=== PATIENT | female | born 1940 | race Caucasian/White ===

== ENCOUNTER → 2020-09-17 11:02 | Outpatient (CLI) | payer OTHER, SELFPAY | PROVIDERS: PCP Internal Medicine; Referring Provider Dermatology MOHS-Micrographic Surgery; Visit Provider Family Medicine | DX: S81.801A Unspecified open wound, right lower leg, initial encounter (principal); I87.2 Venous insufficiency (chronic) (peripheral); R60.0 Localized edema; Z79.01 Long term (current) use of anticoagulants | CPT/HCPCS: 11042; 87070; 87075; 87205; 99204; 99213 ==

== ENCOUNTER → 2020-09-24 11:39 | Outpatient (CLI) | payer OTHER, SELFPAY | PROVIDERS: PCP Internal Medicine; Referring Provider Internal Medicine; Visit Provider Family Medicine | DX: S81.801A Unspecified open wound, right lower leg, initial encounter (principal); R60.0 Localized edema | CPT/HCPCS: 97597 ==

== ENCOUNTER → 2020-10-01 10:18 | Outpatient (CLI) | payer OTHER, SELFPAY | PROVIDERS: PCP Internal Medicine; Referring Provider Internal Medicine; Visit Provider Family Medicine | DX: S81.801A Unspecified open wound, right lower leg, initial encounter (principal); R60.0 Localized edema; Z79.01 Long term (current) use of anticoagulants | CPT/HCPCS: 99212; 99213 ==

== ENCOUNTER → 2020-10-08 13:31 | Outpatient (CLI) | payer OTHER, SELFPAY | PROVIDERS: PCP Internal Medicine; Referring Provider Internal Medicine; Visit Provider Family Medicine | DX: S81.801A Unspecified open wound, right lower leg, initial encounter (principal); I87.2 Venous insufficiency (chronic) (peripheral); R60.0 Localized edema; Z79.01 Long term (current) use of anticoagulants | CPT/HCPCS: 11042 ==

== ENCOUNTER → 2020-10-15 12:48 | Outpatient (CLI) | payer OTHER, SELFPAY ==
--- NOTE | 2020-10-15 12:52 | DI.US.S_ITS ---
PROCEDURE: US PELVIC COMPLETE INDICATIONS: RIGHT PELVIC PAIN TECHNIQUE: Real-time scanning was performed of the pelvic organs, with image documentation. Additional endovaginal scanning was necessary due to incomplete visualization of the adnexal and endometrial structures by transabdominal scanning. COMPARISON: None. FINDINGS: Uterus: Prior hysterectomy. Ovaries: Ovaries not visualized. No adnexal masses seen. Other: No pathologic free abdominal or pelvic fluid. IMPRESSION: No source for pelvic pain identified. If pain persists with conservative management, consider CT. Dictated by: Jeffrey Tyson [facility] Interpreted: Jere Lan MD on 10/15/2020 at 15:32 Approved by: Jere Lan M.D. on 10/15/2020 at 16:25
== END ==
PROVIDERS: PCP Internal Medicine; Visit Provider Orthopaedic Surgery
DX: R10.31 Right lower quadrant pain (principal)
CPT/HCPCS: 76830; 76856

== ENCOUNTER → 2020-10-23 09:23 | Outpatient (CLI) | payer OTHER, SELFPAY | PROVIDERS: PCP Internal Medicine; Referring Provider Internal Medicine; Visit Provider Family Medicine | DX: I87.2 Venous insufficiency (chronic) (peripheral) (principal); S81.801A Unspecified open wound, right lower leg, initial encounter; R60.0 Localized edema; Z79.01 Long term (current) use of anticoagulants | CPT/HCPCS: 97597 ==

== ENCOUNTER → 2020-10-29 09:50 | Outpatient (CLI) | payer OTHER, SELFPAY | PROVIDERS: PCP Internal Medicine; Referring Provider Internal Medicine; Visit Provider Family Medicine | DX: S81.801A Unspecified open wound, right lower leg, initial encounter (principal); Z79.01 Long term (current) use of anticoagulants; R60.0 Localized edema | CPT/HCPCS: 99213 ==

== ENCOUNTER → 2020-11-05 16:14 | Outpatient (CLI) | payer OTHER, SELFPAY | PROVIDERS: PCP Internal Medicine; Referring Provider Internal Medicine; Visit Provider Family Medicine | DX: S81.801A Unspecified open wound, right lower leg, initial encounter (principal); R60.0 Localized edema; M79.604 Pain in right leg; Z79.01 Long term (current) use of anticoagulants | CPT/HCPCS: 99212; 99213 ==

== ENCOUNTER → 2020-11-19 10:18 | Outpatient (CLI) | payer OTHER, SELFPAY | PROVIDERS: PCP Internal Medicine; Referring Provider Internal Medicine; Visit Provider Family Medicine | DX: I87.2 Venous insufficiency (chronic) (peripheral) (principal); S81.801D Unspecified open wound, right lower leg, subsequent encounter; R60.0 Localized edema; I16.0 Hypertensive urgency; Z79.01 Long term (current) use of anticoagulants | CPT/HCPCS: 99212; 99213 ==

== ENCOUNTER 2021-05-16 14:54 | Emergency (ER) | payer OTHER, SELFPAY ==
[2021-05-16 15:24] VITALS: BP 162/79; PULSE 88; RESP 18; TEMP 36.2; O2SAT 99; BMI 24.9
--- NOTE | 2021-05-16 17:39 | ED.WOUNDLAC ---
HPI - Wound/Laceration General Chief Complaint: Wound/Laceration Stated Complaint: Open sore on bottom/not able to sit Time Seen by Provider: 05/16/21 17:10 Source: patient Mode of arrival: Ambulatory Limitations: no limitations History of Present Illness HPI narrative: Patient is an 80-year-old female with history of atrial fibrillation on Eliquis, very remote genital herpes presenting today with a sore on rectal area. She has noticed a sore is 1 the right side her last 3 days. She said she had a blood test once which was positive for HSV she has never been put on antiviral medications. She has had it she would occasionally get a vaginal sore which she took some [id number] medicine for on it would go away. She is also complaining of significant left buttock pain, somewhat so that she cannot sit on it. However this sore is on the right side. She denies any fever or chills. She has not had any significant diarrhea. No abdominal pain or chest pain. Related Data Home Medications Medication Instructions Recorded Confirmed calcium citrate 200 mg (950 mg) PO #0 06/18/17 tablet (Calcitrate) estradiol 1 mg tablet (Estrace) #0 06/18/17 levothyroxine 75 mcg tablet 75 mcg PO #0 06/18/17 (Synthroid) losartan 50 mg tablet 50 mg PO BID #0 06/18/17 omeprazole 20 mg capsule,delayed 20 mg PO EVERY OTHER DAY #0 06/18/17 release pravastatin 40 mg tablet 40 mg PO QPM #0 06/18/17 triamterene 50 25 mg PO QDAY #0 06/18/17 mg-hydrochlorothiazide 25 mg capsule warfarin 5 mg tablet (Coumadin) 5 mg PO QPM #0 06/18/17 Previous Rx's Medication Instructions Recorded ondansetron 4 mg disintegrating 4 mg SUBLINGUAL Q6HP PRN #30 odt 06/22/17 tablet (Zofran ODT) oxycodone-acetaminophen 5 mg-325 0 tab PO Q6HP PRN #30 06/22/17 mg tablet polyethylene glycol 3350 17 gram 17 gm PO BID #20 dose 06/22/17 oral powder packet hydrocodone 5 mg-acetaminophen 325 1 tab PO Q6H PRN #10 tab 05/16/21 mg tablet valacyclovir 1 gram tablet 1,000 mg PO Q12H #20 tab 05/16/21 Allergies Allergy/AdvReac Type Severity Reaction Status Date / Time codeine [CODEINE] Allergy Intermediate NAUSEA Verified 05/16/21 15:23 Sulfa (Sulfonamide Allergy Intermediate broke out Verified 05/16/21 15:23 Antibiotics) in a rash [SULFA (SULFONAMIDE ANTIBIOTICS)] Review of Systems Review of Systems Narrative: GENERAL: Denies chills,fever HEENT: Denies throat pain RESPIRATORY: Denies dyspnea, cough, wheezing CARDIOVASCULAR: Denies chest pain, palpitations GASTROINTESTINAL: Denies nausea, vomiting MUSCULOSKELETAL: Denies extremity pain, injury SKIN: See HPI NEUROLOGIC: Denies weakness, dizziness, headache, numbness 8 point review of systems is negative except for those stated above and HPI Patient History Social History Smoking Status: Never smoker Smoking Status: Never smoker Substance Use Type: does not use Exam Initial Vital Signs Initial Vital Signs: Vital Signs Temperature 97.1 F L 05/16/21 15:24 Pulse Rate 88 05/16/21 15:24 Respiratory Rate 18 05/16/21 15:24 Blood Pressure 162/79 H 05/16/21 15:24 Pulse Oximetry 99 05/16/21 15:24 GENERAL: 80-year-old female appears younger than stated age CARDIOVASCULAR: peripheral pulses in tact, cap refill <2 sec RESPIRATORY: No respiratory distress, speaks in full sentences without difficulty EXTREMITIES: Normal range of motion, no clubbing or edema. Neurovascularly intact NEUROLOGICAL: Cranial nerves II through XII grossly intact. Normal gait and speech. SKIN: Rectal region around 7 to 8 o'clock position has some vesicular like lesions. No fluctuation no induration. Left buttock itself is quite tender to touch but there is no erythema no contusion no other sign of infection or injury. Course Orders Ordered: ED Orders 05/16/21 17:35 HSV 1/2 DNA PCR SWAB or BLOOD Stat Discontinued Medications Hydrocodone Bitart/Acetaminophen (Hydrocodone/Acet 5/325 Prepack) 1 bottle MISC SEEINSTR ONE Stop: 05/16/21 17:38 Last Admin: 05/16/21 18:05 Dose: 1 bottle Documented by: COLLINS Valacyclovir HCl (Valacyclovir 500 Mg Tablet) 1,000 mg PO NOW ONE Stop: 05/16/21 17:38 Last Admin: 05/16/21 18:05 Dose: 1,000 mg Documented by: COLLINS Vital Signs Vital signs: Vital Signs - 8 hr 05/16/21 15:24 Temperature 97.1 F L Pulse Rate 88 Respiratory Rate 18 Blood Pressure 162/79 H Pulse Oximetry 99 MDM - Wound/Laceration MDM Narrative Medical decision making narrative: Herpes culture is taken. Small vesicular ulcer like area near rectal region. Certainly no abscess she is afebrile. She denies any injury unclear exactly why the left buttock itself is so tender. The lesion itself is that right side on 01/15 position. Probable herpes. She is given 1 dose of acyclovir in the ED and written for a prescription. Educated on symptoms and when to return to ED. At this time I do not think any further testing or imaging is indicated. Discharge Plan Departure Patient Disposition: Home Clinical Impression: Herpes dermatitis Instructions: Genital Herpes, Herpes Simplex Virus Testing Activity Restrictions/Additional Instructions: *You have been diagnosed with probable herpes *What to do: At this time herpes culture is pending however based on her history I will start you on medication. You should start to feel better in the next 3-7 days. *Continue to take medications as directed Valacyclovir 1000 mg every 12 hours for 10 days Hydrocodone 1 tablet every 6 hours if needed for severe pain--please see below instructions *Follow up with your primary care provider in 2-3 days *Return to ER if you should have increasing pain, fever, swelling or any new, worsening or concerning symptoms CONTROLLED SUBSTANCE DISCHARGE (Narcotoic/benzodiazepine/Flexeril/Phenergan) 1. You have been prescribed narcotic medications, it does have acetaminophen/Tylenol/paracetamol in it, DO NOT TAKE MORE THAN 4,00mg in 24 hours of Tylenol. TRAMADOL DOES NOT CONTAIN TYLENOL 2. Please understand that we cannot provide further refills of narcotics, benzodiazepines or controlled substances through the ED and her pain management will need to be through your provider. 3. While on these medications you cannot drive or operate heavy machinery. 4. You cannot sign legal documents or perform any duties such as this. 5. As long as you're taking opiate pain medications he should also be taking a stool softener such as Colace, Dulcolax, MiraLAX or prune juice, to help avoid constipation. Prescriptions: New valacyclovir 1 gram tablet 1,000 mg PO Q12H Qty: 20 RF: 0 hydrocodone-acetaminophen 5-325 mg tablet 1 tab PO Q6H PRN (Reason: pain) Qty: 10 RF: 0 No Action warfarin [Coumadin] 5 MG tablet 5 mg PO QPM Qty: 0 RF: 0 losartan 50 MG tablet 50 mg PO BID Qty: 0 RF: 0 levothyroxine [Synthroid] 75 MCG tablet 75 mcg PO Qty: 0 RF: 0 pravastatin 40 MG tablet 40 mg PO QPM Qty: 0 RF: 0 triamterene-hydrochlorothiazid 50 MG/25 MG capsule 25 mg PO QDAY Qty: 0 RF: 0 omeprazole 20 MG capsule,delayed release(DR/EC) 20 mg PO EVERY OTHER DAY Qty: 0 RF: 0 calcium citrate [Calcitrate] 200 mg (950 mg) tablet PO Qty: 0 RF: 0 estradiol [Estrace] 1 mg tablet Qty: 0 RF: 0 polyethylene glycol 3350 17 GM powder in packet 17 gm PO BID Qty: 20 RF: 0 oxycodone-acetaminophen 5 MG/325 MG tablet 0 tab PO Q6HP PRNQty: 30 RF: 0 ondansetron [Zofran ODT] 4 MG tablet,disintegrating 4 mg Sublingual Q6HP PRNQty: 30 RF: 0 Referrals: Robert Mcfarlane MD [Primary Care Provider] -
[2021-05-16] MEDS: valACYclovir 500 MG TABLET 1000 MG PO (18:05)
[2021-05-16] MEDS: HYDROCODONE/ACET 5/325 PREPACK 1 BOTTLE MISC (18:05)
[2021-05-20 04:04] LABS: HSV 1 DNA Negative (Negative); HSV 2 DNA Positive (Negative)
== END 2021-05-16 18:13 | disposition home or self-care (01) ==
PROVIDERS: Emergency Provider Emergency Medicine; PCP Orthopaedic Surgery
DX: B00.89 Other herpesviral infection (principal)
CPT/HCPCS: 87529; 99283

== ENCOUNTER → 2021-07-16 16:38 | Outpatient (CLI) | payer OTHER, SELFPAY ==
--- NOTE | 2021-07-16 17:36 | DI.RAD.S_ITS ---
PROCEDURE: XR CHEST 2V INDICATIONS: shortness of breath TECHNIQUE: 2 views of the chest were acquired. COMPARISON: None. FINDINGS: Surgical changes and devices: Surgical clips project over the right breast. Lungs and pleura: Diffuse interstitial prominence. Mild loss of vascular distinctness. Small bilateral pleural effusions. No focal consolidations. Streaky bibasilar opacities. Mediastinum: Mild cardiomegaly. Atherosclerotic calcifications of the aortic arch. Bones and chest wall: No suspicious bony abnormalities. Soft tissues appear unremarkable. IMPRESSION: Cardiomegaly with findings compatible with pulmonary edema/CHF. Concurrent infectious or inflammatory process not excluded if clinically appropriate. Dictated by: Wallace Bergeron M.D. on 07/16/2021 at 18:00 Approved by: Wallace Bergeron M.D. on 07/16/2021 at 18:01
[2021-07-16 18:38] LABS: Influenza A - CEPHEID Flu A NEGATIVE (NEGATIVE); Influenza B - CEPHEID Flu B NEGATIVE (NEGATIVE)
--- NOTE | 2021-07-16 18:39 | PC.NURSE ---
pt is the spouse of my pt. she gave me permissions to check her lab results.
[2021-07-16 18:57] LABS: COVID19 -Nasal RAPID POSITIVE (Negative)
== END ==
PROVIDERS: PCP Orthopaedic Surgery; Referring Provider Nurse Practitioner Family; Visit Provider Nurse Practitioner Family
DX: U07.1 COVID-19 (principal); J06.9 Acute upper respiratory infection, unspecified; B34.9 Viral infection, unspecified
CPT/HCPCS: 71046; 87502; 87635

== ENCOUNTER 2021-07-16 19:07 | Emergency (ER) | payer OTHER, SELFPAY ==
[2021-07-16 19:30] VITALS: BP 200/99; PULSE 84; RESP 18; TEMP 36.6; O2SAT 97; BMI 26.6
[2021-07-16 19:54] LABS: Add Manual Diff / Slide Review NO; Basophils Absolute Auto 100 /uL (0-100); Basophils Percent Auto 0.9 % (0-2); Eosinophils Absolute Auto 0 /uL (0-450); Eosinophils Percent Auto 0.5 % (2-4); Hematocrit 39.3 % (36-46); Hemoglobin 13.6 g/dL (12.0-16.0); Lymphocytes Absolute Auto 1600 /uL (1100-4500); Lymphocytes Percent Auto 20.2 % (25-40); Mean Corpuscular HGB Conc 34.5 % (30-36); Mean Corpuscular Hemoglobin 30.9 PG (26-34); Mean Corpuscular Volume 89.4 fL (80-100); Monocytes Absolute Auto 1000 /uL (0-900); Monocytes Percent Auto 12.9 % (3-14); Neutrophils Absolute Auto 5100 /uL (1500-7000); Neutrophils Percent Auto 65.5 % (50-75); Platelet Count 277 X10^3/uL (150-400); Red Blood Cell Count 4.39 X10^6/uL (4.0-5.2); Red Cell Distribution Width 14.1 % (11.6-14.8); White Blood Cell Count 7.7 X10^3/uL (4.5-11.0)
[2021-07-16 20:09] LABS: INR 1.5 (0.9-1.3)
[2021-07-16 20:14] LABS: Lactate (Lactic Acid) 1.3 mmol/L (0.7-2.1)
[2021-07-16 20:16] LABS: Alanine Aminotransferase 22 IU/L (<35); Albumin 4.3 g/dL (3.5-5.0); Albumin Globulin Ratio 1.3 (1.0-2.8); Alkaline Phosphatase 54 U/L (38-126); Aspartate Aminotransferase 30 IU/L (14-36); BUN Creatinine Ratio 17.7 (6-22); Bilirubin Total 0.5 mg/dL (0.2-1.3); Blood Urea Nitrogen 14 mg/dL (7-17); Carbon Dioxide 27 mmol/L (22-32); Chloride 103 mmol/L (98-107); Estimated Glomerular Filt Rate > 60.0 mL/min (>60); Globulin 3.2 g/dL (1.7-4.1); Glucose 97 mg/dL (80-110); HEMOLYSIS < 15 (0-50); Potassium 3.5 mmol/L (3.4-5.1); Sodium 136 mmol/L (137-145); Total Protein 7.5 g/dL (6.3-8.2)
[2021-07-16 20:24] LABS: NT-proBNP (BNP-Adult 18+) 3200 pg/mL (<450)
[2021-07-16 21:17] LABS: Creatine Kinase 135 U/L (30-135)
[2021-07-16 21:30] LABS: Troponin I 0.028 ng/mL (0.01-0.034)
[2021-07-16 21:32] LABS: CKMB % Relative Index 1.3 % (1.5-5.0); Creatine Kinase MB 1.73 ng/mL (<2.37)
--- NOTE | 2021-07-16 22:16 | ED.SOB ---
HPI - SOB/Dyspnea General Chief Complaint: Upper Respiratory Symptoms Stated Complaint: CHF,SOB,COVID+ Time Seen by Provider: 07/16/21 22:10 Source: patient Mode of arrival: Ambulatory Limitations: no limitations History of Present Illness HPI Narrative: Female history of atrial fibrillation on Eliquis presents a walk-in clinic. She was notified by her children last evening that they have COVID a recently spent time with them. She went to the walk-in clinic for a COVID test is they did a chest x-ray which showed congestive heart failure she was sent to the ED for further evaluation. She has been having increasing shortness of breath over the last couple of weeks. She has noticed it more exertion. Minimal shortness of breath at night. She has no prior history of congestive heart failure, although she is on a ?water pill for her legs. She denies any chest pain or palpitations. She has mild sore throat no significant body aches or productive cough. Related Data Home Medications Medication Instructions Recorded Confirmed calcium citrate 200 mg (950 mg) PO #0 06/18/17 tablet (Calcitrate) estradiol 1 mg tablet (Estrace) #0 06/18/17 levothyroxine 75 mcg tablet 75 mcg PO #0 06/18/17 (Synthroid) losartan 50 mg tablet 50 mg PO BID #0 06/18/17 omeprazole 20 mg capsule,delayed 20 mg PO EVERY OTHER DAY #0 06/18/17 release pravastatin 40 mg tablet 40 mg PO QPM #0 06/18/17 triamterene 50 25 mg PO QDAY #0 06/18/17 mg-hydrochlorothiazide 25 mg capsule warfarin 5 mg tablet (Coumadin) 5 mg PO QPM #0 06/18/17 Previous Rx's Medication Instructions Recorded ondansetron 4 mg disintegrating 4 mg SUBLINGUAL Q6HP PRN #30 odt 06/22/17 tablet (Zofran ODT) oxycodone-acetaminophen 5 mg-325 0 tab PO Q6HP PRN #30 06/22/17 mg tablet polyethylene glycol 3350 17 gram 17 gm PO BID #20 dose 06/22/17 oral powder packet hydrocodone 5 mg-acetaminophen 325 1 tab PO Q6H PRN #10 tab 05/16/21 mg tablet valacyclovir 1 gram tablet 1,000 mg PO Q12H #20 tab 05/16/21 furosemide 20 mg tablet (Lasix) 20 mg PO DAILY #3 tab 07/16/21 Allergies Allergy/AdvReac Type Severity Reaction Status Date / Time codeine [CODEINE] Allergy Intermediate NAUSEA Verified 05/16/21 15:23 Sulfa (Sulfonamide Allergy Intermediate broke out Verified 05/16/21 15:23 Antibiotics) in a rash [SULFA (SULFONAMIDE ANTIBIOTICS)] Review of Systems Review of Systems Narrative: GENERAL: Denies chills, fatigue, malaise, fever, sweats, travel HEENT: Denies sinus pain, ear pain, sore throat, difficulty swallowing, neck pain RESPIRATORY: See HPI CARDIOVASCULAR: Denies chest pain, palpitations, orthopnea, edema GASTROINTESTINAL: Denies nausea, vomiting, abdominal pain, diarrhea, constipation, melena. : Denies dysuria, frequency, incontinence, hematuria, urinary retention, flank pain. MUSCULOSKELETAL: Denies weakness, joint pain, or bony pain SKIN: No rash, no erythema, no pruritus NEUROLOGIC: Denies weakness, dizziness, headache, numbness, change in speech, confusion PSYCHIATRIC: No concerning psychosocial issues. 12 point review of systems is negative except for those stated above and HPI Patient History Social History Smoking Status: Never smoker Smoking Status: Never smoker Substance Use Type: does not use Exam Initial Vital Signs Initial Vital Signs: Vital Signs Temperature 97.9 F 07/16/21 19:30 Pulse Rate 84 07/16/21 19:30 Respiratory Rate 18 07/16/21 19:30 Blood Pressure 200/99 H 07/16/21 19:30 Pulse Oximetry 97 07/16/21 19:30 GENERAL: Overall well-appearing 80-year-old female HEENT: Head atraumatic,EOMI, pupils reactive, face symmetric, moist mucous membranes CARDIOVASCULAR: Regular rate and rhythm without murmurs, rubs or gallops. RESPIRATORY: Mild crackles at bases no conversational dyspnea ABDOMEN: Soft, nontender. Normoactive bowel sounds all 4 quadrants. No guarding or rebound. EXTREMITIES: Normal range of motion, no clubbing or edema. Neurovascularly intact NEUROLOGICAL: Alert and oriented x4.Normal gait and speech. SKIN: Warm, dry, no laceration, no petechiae, no rashes or lesions. Course Orders Ordered: ED Orders 07/16/21 19:32 EKG-12 Lead Stat Measure peak expiratory flow ONCE RT Consult Eval and Treat Now 07/16/21 19:40 Complete Blood Count AUTO DIFF Stat Comprehensive Metabolic Panel Stat Lactate (Lactic Acid) Stat NT-proBNP (BNP-Adult 18+) Stat Prothrombin Time INR Stat Troponin & CK Cardiac Panel Stat Vital Signs Vital signs: Vital Signs - 8 hr 07/16/21 19:30 Temperature 97.9 F Pulse Rate 84 Respiratory Rate 18 Blood Pressure 200/99 H Pulse Oximetry 97 MDM - SOB/Dyspnea Lab Data Result diagrams: 07/16/21 19:40 07/16/21 19:40 Labs: Lab Results 07/16/21 07/16/21 07/16/21 Range/Units 19:40 19:40 19:40 WBC 7.7 (4.5-11.0) X10^3/uL RBC 4.39 (4.0-5.2) X10^6/uL Hgb 13.6 (12.0-16.0) g/dL Hct 39.3 (36-46) % MCV 89.4 (80-100) fL MCH 30.9 (26-34) PG MCHC 34.5 (30-36) % RDW 14.1 (11.6-14.8) % Plt Count 277 (150-400) X10^3/uL Neut % (Auto) 65.5 (50-75) % Lymph % (Auto) 20.2 L (25-40) % Woods % (Auto) 12.9 (3-14) % Eos % (Auto) 0.5 L (2-4) % Baso % (Auto) 0.9 (0-2) % Neut # (Auto) 5100 (2165-8821) /uL Lymph # (Auto) 1600 (8114-0119) /uL Woods # (Auto) 1000 H (0-900) /uL Eos # (Auto) 0 (0-450) /uL Baso # (Auto) 100 (0-100) /uL PT 17.0 H (10.1-12.7) SECONDS INR 1.5 H (0.9-1.3) Sodium 136 L (137-145) mmol/L Potassium 3.5 (3.4-5.1) mmol/L Chloride 103 (98-107) mmol/L Carbon Dioxide 27 (22-32) mmol/L BUN 14 (7-17) mg/dL Creatinine 0.79 (0.52-1.04) mg/dL Estimated GFR > 60.0 (>60) mL/min BUN/Creatinine Ratio 17.7 (6-22) Glucose 97 (80-110) mg/dL Lactate (0.7-2.1) mmol/L Calcium 9.0 (8.4-10.2) mg/dL Total Bilirubin 0.5 (0.2-1.3) mg/dL AST 30 (14-36) IU/L ALT 22 (<35) IU/L Alkaline Phosphatase 54 (38-126) U/L Total Creatine Kinase (30-135) U/L CK-MB (CK-2) (<2.37) ng/mL CK-MB (CK-2) Rel Index (1.5-5.0) % Troponin I (0.01-0.034) ng/mL NT-Pro-B Natriuret Pep 3200 H (<450) pg/mL Total Protein 7.5 (6.3-8.2) g/dL Albumin 4.3 (3.5-5.0) g/dL Globulin 3.2 (1.7-4.1) g/dL Albumin/Globulin Ratio 1.3 (1.0-2.8) 07/16/21 07/16/21 Range/Units 19:40 19:40 WBC (4.5-11.0) X10^3/uL RBC (4.0-5.2) X10^6/uL Hgb (12.0-16.0) g/dL Hct (36-46) % MCV (80-100) fL MCH (26-34) PG MCHC (30-36) % RDW (11.6-14.8) % Plt Count (150-400) X10^3/uL Neut % (Auto) (50-75) % Lymph % (Auto) (25-40) % Woods % (Auto) (3-14) % Eos % (Auto) (2-4) % Baso % (Auto) (0-2) % Neut # (Auto) (6867-8011) /uL Lymph # (Auto) (1616-7234) /uL Woods # (Auto) (0-900) /uL Eos # (Auto) (0-450) /uL Baso # (Auto) (0-100) /uL PT (10.1-12.7) SECONDS INR (0.9-1.3) Sodium (137-145) mmol/L Potassium (3.4-5.1) mmol/L Chloride (98-107) mmol/L Carbon Dioxide (22-32) mmol/L BUN (7-17) mg/dL Creatinine (0.52-1.04) mg/dL Estimated GFR (>60) mL/min BUN/Creatinine Ratio (6-22) Glucose (80-110) mg/dL Lactate 1.3 (0.7-2.1) mmol/L Calcium (8.4-10.2) mg/dL Total Bilirubin (0.2-1.3) mg/dL AST (14-36) IU/L ALT (<35) IU/L Alkaline Phosphatase (38-126) U/L Total Creatine Kinase 135 (30-135) U/L CK-MB (CK-2) 1.73 (<2.37) ng/mL CK-MB (CK-2) Rel Index 1.3 L (1.5-5.0) % Troponin I 0.028 (0.01-0.034) ng/mL NT-Pro-B Natriuret Pep (<450) pg/mL Total Protein (6.3-8.2) g/dL Albumin (3.5-5.0) g/dL Globulin (1.7-4.1) g/dL Albumin/Globulin Ratio (1.0-2.8) Imaging Data Chest x-ray: Radiologist's Impression: PROCEDURE:? XR CHEST 2V ? INDICATIONS:? shortness of breath ? TECHNIQUE:? 2 views of the chest were acquired.? ? COMPARISON:? None. ? FINDINGS:? ? Surgical changes and devices:? Surgical clips project over the right breast.? ? Lungs and pleura:? Diffuse interstitial prominence.? Mild loss of vascular distinctness.? Small bilateral pleural effusions.? No focal consolidations.? Streaky bibasilar opacities. ? Mediastinum:? Mild cardiomegaly.? Atherosclerotic calcifications of the aortic arch. ? Bones and chest wall:? No suspicious bony abnormalities.? Soft tissues appear unremarkable.? ? IMPRESSION:? Cardiomegaly with findings compatible with pulmonary edema/CHF.? Concurrent infectious or inflammatory process not excluded if clinically appropriate. ? ? Dictated by: Wallace Bergeron M.D. on 07/16/2021 at 18:00 ? ? ECG Data Interpretation: Atrial fibrillation rate 89 no ischemic change MDM Narrative Medical decision making narrative: Patient does not have known history of congestive heart failure although she is on diuretic medication. She has known atrial fibrillation is currently rate controlled. She has had increasing shortness of breath with exertion over the last 2 weeks. BNP is elevated at 3200 she does have cardiomegaly and pulmonary edema on her chest x-ray. She overall appears well she is in no respiratory distress she is not requiring oxygen even despite having COVID. At this time will at least 6 to her medications. She will need outpatient echocardiogram she has not yet had 1 of these. Recommend she return to the ED if her increasing shortness of breath worse Discharge Plan Departure Patient Disposition: Home Clinical Impression: COVID-19, Congestive heart failure Instructions: Heart Failure, DI for COVID-19 (Suspected or Confirmed ) Activity Restrictions/Additional Instructions: *You have been diagnosed with congestive heart failure and COVID *What to do: Please quarantine for the next 5-10 days. He will need an outpatient echocardiogram for your heart. *Continue to take medications as directed Lasix 20 mg once a day for 3 days (while taking this holdtriaterene, HCTZ) __> Sent to [facility] in [place] *Follow up with your primary care provider in 2-3 days or call [phone] *Return to ER if you should have increasing chest pain, shortness of breath, oxygen level less than 90% for 1 hour or any new, worsening or concerning symptoms * if you have not yet been vaccinated is still recommended and encouraged that you do so once your infection has passed *Follow up with your primary provider in 2-3 days or call [phone] AT HOME: -Monitor oxygen with pulse oximeter. If less than 90% for more than 1 hour please return to emergency department -I recommend lying on stomach for side rather than back, it has been proven to increase oxygen levels -Wash hands frequently. -Stay isolated at home please follow the isolation instructions below. -Increase fluid intake. -you may take Tylenol as directed if needed for pain or fever EMERGENCY warning signs for COVID-19: - Difficulty breathing or shortness of breath, oxygen less than 90% - Persistent pain or pressure in the chest - New confusion or inability to arouse - Bluish lips or face CDC Guidelines for home isolation: - Stay away from others - Limit contact with pets and animals: If you must care for a pet, wash your hands before and after interacting with them - Wear a mask while in public all places - Cover your mouth and nose with a tissue when you cough or sneeze. Dispose of tissues in a lined trash can and wash your hands immediately with soap and water for at least 20 seconds. If soap and water are not available, clean hands with alcohol-based hand asset protection detective that contains at least 60% alcohol. - Clean your hands often with soap and water for at least 20 seconds - Avoid touching your eyes, nose and mouth with unwashed hands - Do not share dishes, drinking glasses, cups, eating utensils, towels, or bedding with other people in your home. After using these items, wash them thoroughly with soap and water or put in the rib trim separator. - Clean high-touch surfaces in your isolation area (?sick room? and bathroom) every day; let a caregiver clean and disinfect high-touch surfaces in other areas of the home. Clean the area or item with soap and water or another detergent if it is dirty. Then, use a household disinfectant. Prescriptions: New furosemide [Lasix] 20 mg tablet 20 mg PO DAILY Qty: 3 0RF No Action warfarin [Coumadin] 5 MG tablet 5 mg PO QPM Qty: 0 0RF losartan 50 MG tablet 50 mg PO BID Qty: 0 0RF levothyroxine [Synthroid] 75 MCG tablet 75 mcg PO Qty: 0 0RF pravastatin 40 MG tablet 40 mg PO QPM Qty: 0 0RF triamterene-hydrochlorothiazid 50 MG/25 MG capsule 25 mg PO QDAY Qty: 0 0RF omeprazole 20 MG capsule,delayed release(DR/EC) 20 mg PO EVERY OTHER DAY Qty: 0 0RF calcium citrate [Calcitrate] 200 mg (950 mg) tablet PO Qty: 0 0RF estradiol [Estrace] 1 mg tablet Qty: 0 0RF polyethylene glycol 3350 17 GM powder in packet 17 gm PO BID Qty: 20 0RF oxycodone-acetaminophen 5 MG/325 MG tablet 0 tab PO Q6HP PRNQty: 30 0RF ondansetron [Zofran ODT] 4 MG tablet,disintegrating 4 mg Sublingual Q6HP PRNQty: 30 0RF valacyclovir 1 gram tablet 1,000 mg PO Q12H Qty: 20 0RF hydrocodone-acetaminophen 5-325 mg tablet 1 tab PO Q6H PRN (Reason: pain) Qty: 10 0RF Referrals: Robert Mcfarlane MD [Primary Care Provider] -
== END 2021-07-16 22:58 | disposition home or self-care (01) ==
PROVIDERS: Emergency Provider Emergency Medicine; PCP Orthopaedic Surgery
DX: U07.1 COVID-19 (principal); I50.9 Heart failure, unspecified; I48.91 Unspecified atrial fibrillation; Z79.01 Long term (current) use of anticoagulants; J06.9 Acute upper respiratory infection, unspecified; B34.9 Viral infection, unspecified
CPT/HCPCS: 36415; 71046; 80053; 82550; 82553; 83605; 83880; 84484; 85025; 85610; 87502; 87635; 93005; 93010; 99283

== ENCOUNTER → 2021-10-09 13:23 | Outpatient (CLI) | payer OTHER, SELFPAY | PROVIDERS: PCP Orthopaedic Surgery; Referring Provider Orthopaedic Surgery; Visit Provider Nurse Practitioner Family | DX: T81.89XA Other complications of procedures, not elsewhere classified, initial encounter (principal); S81.802A Unspecified open wound, left lower leg, initial encounter; R60.0 Localized edema; I11.0 Hypertensive heart disease with heart failure; I50.9 Heart failure, unspecified; Z79.01 Long term (current) use of anticoagulants; Z85.828 Personal history of other malignant neoplasm of skin | CPT/HCPCS: 11042; 93922; 99213 ==

== ENCOUNTER → 2021-10-16 13:20 | Outpatient (CLI) | payer OTHER, SELFPAY | PROVIDERS: PCP Orthopaedic Surgery; Referring Provider Family Medicine; Visit Provider Nurse Practitioner Family | DX: T81.89XA Other complications of procedures, not elsewhere classified, initial encounter (principal); S81.802A Unspecified open wound, left lower leg, initial encounter; R60.0 Localized edema; I11.0 Hypertensive heart disease with heart failure; I50.9 Heart failure, unspecified; I48.91 Unspecified atrial fibrillation; Z79.01 Long term (current) use of anticoagulants; Z85.828 Personal history of other malignant neoplasm of skin | CPT/HCPCS: 97597; 99213 ==

== ENCOUNTER → 2021-10-23 10:02 | Outpatient (CLI) | payer OTHER, SELFPAY | PROVIDERS: PCP Orthopaedic Surgery; Referring Provider Dermatology MOHS-Micrographic Surgery; Visit Provider Nurse Practitioner Family | DX: T81.89XA Other complications of procedures, not elsewhere classified, initial encounter (principal); S81.802A Unspecified open wound, left lower leg, initial encounter; R60.0 Localized edema | CPT/HCPCS: 99212 ==

== ENCOUNTER → 2021-11-06 13:17 | Outpatient (CLI) | payer OTHER, SELFPAY | PROVIDERS: PCP Orthopaedic Surgery; Referring Provider Dermatology MOHS-Micrographic Surgery; Visit Provider Nurse Practitioner Family | DX: T81.89XA Other complications of procedures, not elsewhere classified, initial encounter (principal); S81.802A Unspecified open wound, left lower leg, initial encounter; I11.0 Hypertensive heart disease with heart failure; I50.9 Heart failure, unspecified; I48.91 Unspecified atrial fibrillation; Z79.01 Long term (current) use of anticoagulants; Z85.828 Personal history of other malignant neoplasm of skin | CPT/HCPCS: 11042 ==

== ENCOUNTER → 2021-11-20 13:42 | Outpatient (CLI) | payer OTHER, SELFPAY | PROVIDERS: PCP Orthopaedic Surgery; Referring Provider Orthopaedic Surgery; Visit Provider Nurse Practitioner Family | DX: T81.89XA Other complications of procedures, not elsewhere classified, initial encounter (principal); S81.802A Unspecified open wound, left lower leg, initial encounter; R60.0 Localized edema; I11.0 Hypertensive heart disease with heart failure; I50.9 Heart failure, unspecified; I48.91 Unspecified atrial fibrillation; Z79.01 Long term (current) use of anticoagulants; Z85.828 Personal history of other malignant neoplasm of skin | CPT/HCPCS: 11042; 99212 ==

== ENCOUNTER → 2021-11-27 11:28 | Outpatient (CLI) | payer OTHER, SELFPAY | PROVIDERS: PCP Orthopaedic Surgery; Referring Provider Orthopaedic Surgery; Visit Provider Nurse Practitioner Family | DX: T81.89XA Other complications of procedures, not elsewhere classified, initial encounter (principal); S81.802A Unspecified open wound, left lower leg, initial encounter; I11.0 Hypertensive heart disease with heart failure; I50.9 Heart failure, unspecified; I48.91 Unspecified atrial fibrillation; Z79.01 Long term (current) use of anticoagulants; Z85.828 Personal history of other malignant neoplasm of skin | CPT/HCPCS: 97597 ==

== ENCOUNTER → 2021-12-04 14:08 | Outpatient (CLI) | payer OTHER, SELFPAY | PROVIDERS: PCP Orthopaedic Surgery; Referring Provider Family Medicine; Visit Provider Nurse Practitioner Family | DX: S81.802A Unspecified open wound, left lower leg, initial encounter (principal); L97.822 Non-pressure chronic ulcer of other part of left lower leg with fat layer exposed; Z79.01 Long term (current) use of anticoagulants; I10 Essential (primary) hypertension; I50.9 Heart failure, unspecified | CPT/HCPCS: 97597; 99212 ==

== ENCOUNTER → 2021-12-11 13:31 | Outpatient (CLI) | payer OTHER, SELFPAY | PROVIDERS: PCP Orthopaedic Surgery; Referring Provider Orthopaedic Surgery; Visit Provider Nurse Practitioner Family | DX: Z09 Encounter for follow-up examination after completed treatment for conditions other than malignant neoplasm (principal); I11.0 Hypertensive heart disease with heart failure; I50.9 Heart failure, unspecified; I48.91 Unspecified atrial fibrillation; Z79.01 Long term (current) use of anticoagulants; Z85.828 Personal history of other malignant neoplasm of skin; Z87.2 Personal history of diseases of the skin and subcutaneous tissue | CPT/HCPCS: 99213 ==

== ENCOUNTER 2022-04-15 04:12 | Emergency (ER) | payer OTHER, SELFPAY ==
[2022-04-15] VITALS (9 sets, daily range): BP systolic 157–191; BP diastolic 70–91; PULSE 68–79; RESP 12–28; TEMP 36.6; O2SAT 94–99; BMI 25.7
--- NOTE | 2022-04-15 04:17 | ED_ITS ---
HPI - Chest Pain General Chief Complaint: Chest Pain Stated Complaint: Chest pain Time Seen by Provider: 04/15/22 04:16 History of Present Illness HPI narrative: Patient is a 81-year-old female history of atrial fibrillation on Eliquis, congestive heart failure presenting today with left-sided chest. She says she was sleeping when she rolled over and felt left-sided pain underneath her breast. It lasts for about 1 hour it was nonradiating. She denies any shortness of breath. She says it just went away. She says they went out to dinner she thought she is having some a bad acid reflux she took Rolaids without any relief. She is chest pain-free now. No history of coronary artery disease or stents Related Data Home Medications Medication Instructions Recorded Confirmed calcium citrate 200 mg (950 mg) PO ##0 06/18/17 tablet (Calcitrate) estradiol 1 mg tablet (Estrace) ##0 06/18/17 levothyroxine 75 mcg tablet 75 mcg PO ##0 06/18/17 (Synthroid) losartan 50 mg tablet 50 mg PO BID ##0 06/18/17 omeprazole 20 mg capsule,delayed 20 mg PO EVERY OTHER DAY ##0 06/18/17 release pravastatin 40 mg tablet 40 mg PO QPM ##0 06/18/17 triamterene 50 25 mg PO QDAY ##0 06/18/17 mg-hydrochlorothiazide 25 mg capsule warfarin 5 mg tablet (Coumadin) 5 mg PO QPM ##0 06/18/17 Previous Rx's Medication Instructions Recorded ondansetron 4 mg disintegrating 4 mg sublingual Q6HP PRN ##30 06/22/17 tablet (Zofran ODT) oxycodone-acetaminophen 5 mg-325 0 tab PO Q6HP PRN ##30 06/22/17 mg tablet polyethylene glycol 3350 17 gram 17 gm PO BID #20 doses 06/22/17 oral powder packet hydrocodone 5 mg-acetaminophen 325 1 tab PO Q6H PRN pain #10 tabs 05/16/21 mg tablet valacyclovir 1 gram tablet 1,000 mg PO Q12H #20 tabs 05/16/21 furosemide 20 mg tablet (Lasix) 20 mg PO DAILY #3 tabs 07/16/21 Allergies Allergy/AdvReac Type Severity Reaction Status Date / Time codeine [CODEINE] Allergy Intermediate NAUSEA Verified 04/15/22 04:21 Sulfa (Sulfonamide Allergy Intermediate broke out Verified 04/15/22 04:21 Antibiotics) in a rash [SULFA (SULFONAMIDE ANTIBIOTICS)] Review of Systems Review of Systems Narrative: GENERAL: Denies chills, fatigue, malaise, fever, sweats, travel HEENT: Denies sinus pain, ear pain, sore throat, difficulty swallowing, neck pain RESPIRATORY: Denies dyspnea, cough, wheezing, hemoptysis, sputum. CARDIOVASCULAR: See HPI GASTROINTESTINAL: Denies nausea, vomiting, abdominal pain, diarrhea, constipation, melena. : Denies dysuria, frequency, incontinence, hematuria, urinary retention, flank pain. MUSCULOSKELETAL: Denies weakness, joint pain, or bony pain SKIN: No rash, no erythema, no pruritus NEUROLOGIC: Denies weakness, dizziness, headache, numbness, change in speech, confusion PSYCHIATRIC: No concerning psychosocial issues. 12 point review of systems is negative except for those stated above and HPI Patient History Social History Smoking Status: Never smoker Smoking Status: Never smoker Substance Use Type: does not use Exam Initial Vital Signs Initial Vital Signs: Vital Signs Pulse Rate 77 04/15/22 04:18 Pulse Oximetry 99 04/15/22 04:18 GENERAL: Alert pleasant 81-year-old female and in no acute distress. HEENT: Head atraumatic,EOMI, pupils reactive, face symmetric, moist mucous membranes CARDIOVASCULAR: Irregularly irregular no murmurs pain is not reproducible with touch RESPIRATORY: Breath sounds equal bilaterally, no wheezes rales or rhonchi. ABDOMEN: Soft, nontender. Normoactive bowel sounds all 4 quadrants. No guarding or rebound. EXTREMITIES: Normal range of motion, no clubbing or edema. Neurovascularly intact NEUROLOGICAL: Alert and oriented x4.Normal gait and speech. SKIN: Warm, dry, no laceration, no petechiae, no rashes or lesions. Scores HEART Score Heart Score history: Slightly Suspicious Heart Score EKG: Normal Heart Score Age: > or = 65 years old Heart Score risk factors: 1-2 risk factors Heart Score troponin: < or = to normal limit Heart Score Total: 3 Course Orders Ordered: ED Orders 04/15/22 04:23 XR chest 1V Stat Complete Blood Count AUTO DIFF Stat Comprehensive Metabolic Panel Stat Lipase Stat NT-proBNP (BNP-Adult 18+) Stat Troponin & CK Cardiac Panel Stat EKG-12 Lead Stat 04/15/22 06:25 Trop I [Troponin I] Stat Vital Signs Vital signs: Vital Signs - 8 hr 04/15/22 04:21 04/15/22 04:18 04/15/22 04:30 Temperature 97.8 F Pulse Rate 68 77 Respiratory Rate 18 Blood Pressure 191/91 H 169/72 H Pulse Oximetry 99 99 Oxygen Delivery Method Room Air 04/15/22 04:30 04/15/22 05:00 04/15/22 05:00 Temperature Pulse Rate 78 73 Respiratory Rate 28 H 19 Blood Pressure 184/79 H Pulse Oximetry 98 96 Oxygen Delivery Method 04/15/22 05:30 04/15/22 05:31 04/15/22 05:31 Temperature Pulse Rate 73 76 Respiratory Rate 12 24 Blood Pressure 180/76 H Pulse Oximetry 97 96 Oxygen Delivery Method 04/15/22 06:00 04/15/22 06:00 04/15/22 06:30 Temperature Pulse Rate 75 Respiratory Rate 19 Blood Pressure 191/81 H 166/81 H Pulse Oximetry 99 Oxygen Delivery Method 04/15/22 06:30 Temperature Pulse Rate 71 Respiratory Rate 21 Blood Pressure Pulse Oximetry 97 Oxygen Delivery Method MDM - Chest Pain Lab Data Result diagrams: 04/15/22 04:25 04/15/22 04:25 Labs: Lab Results 04/15/22 04/15/22 04/15/22 Range/Units 04:25 04:25 06:25 WBC 7.1 (4.5-11.0) X10^3/uL RBC 4.08 (4.0-5.2) X10^6/uL Hgb 12.8 (12.0-16.0) g/dL Hct 36.7 (36-46) % MCV 89.9 (80-100) fL MCH 31.4 (26-34) PG MCHC 35.0 (30-36) % RDW 13.8 (11.6-14.8) % Plt Count 219 (150-400) X10^3/uL Neut % (Auto) 56.0 (50-75) % Lymph % (Auto) 31.4 (25-40) % [place] % (Auto) 8.5 (3-14) % Eos % (Auto) 2.9 (2-4) % Baso % (Auto) 1.2 (0-2) % Neut # (Auto) 4000 (1648-4066) /uL Lymph # (Auto) 2200 (6899-0816) /uL [place] # (Auto) 600 (0-900) /uL Eos # (Auto) 200 (0-450) /uL Baso # (Auto) 100 (0-100) /uL Sodium 137 (137-145) mmol/L Potassium 3.9 (3.4-5.1) mmol/L Chloride 101 (98-107) mmol/L Carbon Dioxide 31 (22-32) mmol/L BUN 29 H (7-17) mg/dL Creatinine 0.99 (0.52-1.04) mg/dL Estimated GFR 57 L (>60) mL/min BUN/Creatinine Ratio 29.3 H (6-22) Glucose 130 H (80-110) mg/dL Calcium 9.9 (8.4-10.2) mg/dL Total Bilirubin 0.7 (0.2-1.3) mg/dL AST 30 (14-36) IU/L ALT 30 (<35) IU/L Alkaline Phosphatase 43 (38-126) U/L Total Creatine Kinase 101 (30-135) U/L CK-MB (CK-2) 1.83 (<2.37) ng/mL CK-MB (CK-2) Rel Index 1.8 (1.5-5.0) % Troponin I < 0.012 < 0.012 (0.01-0.034) ng/mL NT-Pro-B Natriuret Pep 1360 H (<450) pg/mL Total Protein 7.0 (6.3-8.2) g/dL Albumin 3.9 (3.5-5.0) g/dL Globulin 3.1 (1.7-4.1) g/dL Albumin/Globulin Ratio 1.3 (1.0-2.8) Lipase 170 (23-300) U/L Imaging Data Chest x-ray: Radiologist's Impression: Preliminary report no acute cardiopulmonary process ECG Data Interpretation: EKG 1. Atrial fibrillation rate [address] changes similar to previous EKG EKG 2. Atrial fibrillation rate 63 MDM Narrative Medical decision making narrative: Patient rolled over in bed and has some left-sided chest pain. Seemed is reproducible with movement. Although it did last for about 1 hour she thought was worsening acid reflux. 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 At this time no need for admission. She has a low h eart score. Discharge Plan Departure Patient Disposition: Home Clinical Impression: Atypical chest pain Instructions: DI for Atypical Chest Pain Activity Restrictions/Additional Instructions: *You have been diagnosed with atypical chest pain *What to do: At this time blood work is overall reassuring. However you still may require stress test please discuss this with your primary care provider or your runstitching machine operator *Continue to take medications as directed *Follow up with your primary care provider in 2-3 days or call [phone] *Return to ER if you should have increasing chest pain, shortness of breath, palpitation or any new, worsening or concerning symptoms Prescriptions: No Action warfarin [Coumadin] 5 MG tablet 5 mg PO QPM Qty: 0 losartan 50 MG tablet 50 mg PO BID Qty: 0 levothyroxine [Synthroid] 75 MCG tablet 75 mcg PO Qty: 0 pravastatin 40 MG tablet 40 mg PO QPM Qty: 0 triamterene-hydrochlorothiazid 50 MG/25 MG capsule 25 mg PO QDAY Qty: 0 omeprazole 20 MG capsule,delayed release(DR/EC) 20 mg PO EVERY OTHER DAY Qty: 0 calcium citrate [Calcitrate] 200 mg (950 mg) tablet PO Qty: 0 estradiol [Estrace] 1 mg tablet Qty: 0 polyethylene glycol 3350 17 GM powder in packet 17 gm PO BID Qty: 20 0RF oxycodone-acetaminophen 5 MG/325 MG tablet 0 tab PO Q6HP PRNQty: 30 0RF ondansetron [Zofran ODT] 4 MG tablet,disintegrating 4 mg Sublingual Q6HP PRNQty: 30 0RF furosemide [Lasix] 20 mg tablet 20 mg PO DAILY Qty: 3 0RF valacyclovir 1 gram tablet 1,000 mg PO Q12H Qty: 20 0RF hydrocodone-acetaminophen 5-325 mg tablet 1 tab PO Q6H PRN (Reason: pain) Qty: 10 0RF Referrals: Robert Mcfarlane MD [Primary Care Provider] -
--- NOTE | 2022-04-15 04:23 | DI.RAD.S_ITS ---
PROCEDURE: XR CHEST 1V INDICATIONS: chest pain TECHNIQUE: One view of the chest was acquired. COMPARISON: [facility], CR, XR CHEST 2V, 07/16/2021, 17:30. FINDINGS: Surgical changes and devices: Right breast clips. Lungs and pleura: Lungs are clear. No pleural effusions or pneumothorax. Mediastinum: Mediastinal contours appear normal. Heart size is normal. Bones and chest wall: No suspicious bony lesions. Overlying soft tissues appear unremarkable. IMPRESSION: No acute cardiopulmonary abnormality. This report is concordant with the overnight preliminary interpretation. Dictated by: Derek Le M.D. on 04/15/2022 at 7:56 Approved by: Derek Le M.D. on 04/15/2022 at 7:58
[2022-04-15 04:46] LABS: Add Manual Diff / Slide Review NO; Basophils Absolute Auto 100 /uL (0-100); Basophils Percent Auto 1.2 % (0-2); Eosinophils Absolute Auto 200 /uL (0-450); Eosinophils Percent Auto 2.9 % (2-4); Hematocrit 36.7 % (36-46); Hemoglobin 12.8 g/dL (12.0-16.0); Lymphocytes Absolute Auto 2200 /uL (1100-4500); Lymphocytes Percent Auto 31.4 % (25-40); Mean Corpuscular Hemoglobin 31.4 PG (26-34); Mean Corpuscular Volume 89.9 fL (80-100); Monocytes Absolute Auto 600 /uL (0-900); Monocytes Percent Auto 8.5 % (3-14); Neutrophils Absolute Auto 4000 /uL (1500-7000); Platelet Count 219 X10^3/uL (150-400); Red Blood Cell Count 4.08 X10^6/uL (4.0-5.2); Red Cell Distribution Width 13.8 % (11.6-14.8); White Blood Cell Count 7.1 X10^3/uL (4.5-11.0)
[2022-04-15 04:51] LABS: Alanine Aminotransferase 30 IU/L (<35); Albumin 3.9 g/dL (3.5-5.0); Albumin Globulin Ratio 1.3 (1.0-2.8); Alkaline Phosphatase 43 U/L (38-126); Aspartate Aminotransferase 30 IU/L (14-36); BUN Creatinine Ratio 29.3 (6-22); Bilirubin Total 0.7 mg/dL (0.2-1.3); Blood Urea Nitrogen 29 mg/dL (7-17); Calcium 9.9 mg/dL (8.4-10.2); Carbon Dioxide 31 mmol/L (22-32); Chloride 101 mmol/L (98-107); Creatine Kinase 101 U/L (30-135); Estimated Glomerular Filt Rate 57 mL/min (>60); Globulin 3.1 g/dL (1.7-4.1); Glucose 130 mg/dL (80-110); HEMOLYSIS < 15 (0-50); Lipase 170 U/L (23-300); Potassium 3.9 mmol/L (3.4-5.1); Sodium 137 mmol/L (137-145)
[2022-04-15 05:03] LABS: NT-proBNP (BNP-Adult 18+) 1360 pg/mL (<450); Troponin I < 0.012 ng/mL (0.01-0.034)
[2022-04-15 05:06] LABS: CKMB % Relative Index 1.8 % (1.5-5.0); Creatine Kinase MB 1.83 ng/mL (<2.37)
[2022-04-15 06:50] LABS: Troponin I < 0.012 ng/mL (0.01-0.034)
== END 2022-04-15 07:14 | disposition home or self-care (01) ==
PROVIDERS: Emergency Provider Emergency Medicine; PCP Orthopaedic Surgery
DX: R07.89 Other chest pain (principal); I50.9 Heart failure, unspecified; I48.91 Unspecified atrial fibrillation; Z79.01 Long term (current) use of anticoagulants
CPT/HCPCS: 36415; 71045; 80053; 82550; 82553; 83690; 83880; 84484; 85025; 93005; 99283; 99284

== ENCOUNTER → 2022-11-15 15:46 | Outpatient (CLI) | payer OTHER, SELFPAY ==
--- NOTE | 2022-11-15 | DI.RAD.S_ITS ---
PROCEDURE: XR LUMBAR SPINE 2-3V INDICATIONS: BACK PAIN TECHNIQUE: 3 views of the lumbar spine were acquired. COMPARISON: None. FINDINGS: Bones: 5 [id number] vertebrae are present. Slight rightward curvature of the lumbar spine. Moderate to severe disc height loss at all levels. Moderate facet arthrosis L5-S1. Soft tissues: Overlying bowel gas pattern is normal. No suspicious soft tissue calcifications. IMPRESSION: Moderate to severe, multilevel degenerative disc disease and lumbosacral facet arthrosis. Dictated by: Joel Roth M.D. on 11/15/2022 at 16:51 Approved by: Joel Roth M.D. on 11/15/2022 at 16:52
[2022-11-15 17:51] LABS: BUN Creatinine Ratio 19.3 (6-22); Blood Urea Nitrogen 21 mg/dL (7-17); Calcium 8.7 mg/dL (8.4-10.2); Carbon Dioxide 27 mmol/L (22-32); Chloride 99 mmol/L (98-107); Estimated Glomerular Filt Rate 51 mL/min (>60); Glucose 88 mg/dL (80-110); HEMOLYSIS 26 (0-50); Potassium 4.5 mmol/L (3.4-5.1); Sodium 134 mmol/L (137-145)
[2022-11-16 23:23] LABS: x Labcorp Estim. Avg Glu (eAG) 143 mg/dL (.); x Labcorp Hemoglobin A1c 6.6 % (4.8-5.6)
== END ==
PROVIDERS: PCP Family Medicine; Referring Provider Family Medicine; Visit Provider Family Medicine
DX: M54.9 Dorsalgia, unspecified (principal); M51.16 Intervertebral disc disorders with radiculopathy, lumbar region; M47.27 Other spondylosis with radiculopathy, lumbosacral region; E11.9 Type 2 diabetes mellitus without complications; I50.9 Heart failure, unspecified; I25.10 Atherosclerotic heart disease of native coronary artery without angina pectoris; Z79.899 Other long term (current) drug therapy
CPT/HCPCS: 36415; 72100; 80048; 83036

== ENCOUNTER → 2023-01-14 15:26 | Outpatient (CLI) | payer OTHER, SELFPAY ==
--- NOTE | 2023-01-14 | DI.RAD.S_ITS ---
PROCEDURE: XR WRIST LT MIN 3V INDICATIONS: pain lt wrist TECHNIQUE: 3 views of the wrist were acquired. COMPARISON: None. FINDINGS: Bones: No fractures or dislocations. No suspicious bony lesions. Degenerative joint space narrowing and subchondral sclerosis noted involving predominantly the triscaphoid joint Soft tissues: No suspicious soft tissue calcifications. IMPRESSION: Intercarpal osteoarthritis Approved by: Mahesh Ortez M.D. on 01/14/2023 at 18:07
== END ==
PROVIDERS: PCP Family Medicine; Referring Provider Family Medicine; Visit Provider Family Medicine
DX: M19.032 Primary osteoarthritis, left wrist (principal); M25.532 Pain in left wrist
CPT/HCPCS: 73110

== ENCOUNTER → 2023-08-30 18:31 | Outpatient (CLI) | payer OTHER, SELFPAY ==
--- NOTE | 2023-08-30 18:36 | DI.RAD.S_ITS ---
PROCEDURE: XR CERVICAL SPINE 2V OR 3V INDICATIONS: RADICULOPATHY CERVICAL SPINE TECHNIQUE: 3 view(s) of the cervical spine were acquired. COMPARISON: None. FINDINGS: Bones: Degenerative grade 1 anterior spondylolisthesis C4-5. Hypertrophic facet joints present throughout the exam. Degenerative disc space narrowing anterior osteophytes noted particularly at C4-5, C5-6 and C6-7 Soft tissues: No prevertebral soft tissue swelling. IMPRESSION: Degenerative disc disease and arthropathy associated with grade 1 anterior spondylolisthesis C4-5 Approved by: Mahesh Ortez M.D. on 08/31/2023 at 19:07
== END ==
LOC: RAD 18:33
PROVIDERS: PCP Family Medicine; Referring Provider Family Medicine; Visit Provider Family Medicine
DX: M47.22 Other spondylosis with radiculopathy, cervical region (principal); M50.121 Cervical disc disorder at C4-C5 level with radiculopathy; M43.12 Spondylolisthesis, cervical region
CPT/HCPCS: 72040

== ENCOUNTER 2023-12-06 11:57 | Emergency (ER) | payer OTHER, SELFPAY ==
[2023-12-06] VITALS (7 sets, daily range): BP systolic 124–164; BP diastolic 65–115; PULSE 73–93; RESP 20–25; TEMP 36.4; O2SAT 96–98; BMI 24.9
--- NOTE | 2023-12-06 12:05 | DI.RAD.S_ITS ---
PROCEDURE: XR CHEST 1V INDICATIONS: Shortness of breath TECHNIQUE: One view of the chest was acquired. COMPARISON: [facility], , XR CHEST 1V, 04/15/2022, 4:30. FINDINGS: Surgical changes and devices: Stable right breast surgical clips.. Lungs and pleura: Lungs are clear. No pleural effusions or pneumothorax. Mediastinum: Mediastinal contours appear normal. Heart is enlarged. Bones and chest wall: No suspicious bony lesions. Overlying soft tissues appear unremarkable. IMPRESSION: No acute cardiopulmonary abnormality is seen. Dictated by: Michelle Mullins MD, PhD on 12/06/2023 at 12:28 Approved by: Michelle Mullins MD, PhD on 12/06/2023 at 12:29
[2023-12-06 12:36] LABS: Add Manual Diff / Slide Review NO; Basophils Absolute Auto 100 /uL (0-100); Basophils Percent Auto 0.8 % (0-2); Eosinophils Absolute Auto 200 /uL (0-450); Hematocrit 35.4 % (36-46); Hemoglobin 12.2 g/dL (12.0-16.0); Lymphocytes Absolute Auto 1100 /uL (1100-4500); Lymphocytes Percent Auto 16.8 % (25-40); Mean Corpuscular HGB Conc 34.4 % (30-36); Mean Corpuscular Hemoglobin 30.4 PG (26-34); Mean Corpuscular Volume 88.5 fL (80-100); Monocytes Absolute Auto 600 /uL (0-900); Monocytes Percent Auto 8.8 % (3-14); Neutrophils Absolute Auto 4700 /uL (1500-7000); Neutrophils Percent Auto 70.6 % (50-75); Platelet Count 271 X10^3/uL (150-400); Red Cell Distribution Width 13.6 % (11.6-14.8); White Blood Cell Count 6.7 X10^3/uL (4.5-11.0)
--- NOTE | 2023-12-06 12:40 | ED_ITS ---
HPI - General Adult General Chief complaint: Shortness of Breath/Dyspnea Stated complaint: congestion, sob, coughing, chest is tight Time Seen by Provider: 12/06/23 12:05 Source: patient Mode of arrival: Ambulatory History of Present Illness HPI narrative: Patient is an 83-year-old female. Has a history of AFib. Is on Eliquis. Also takes a diuretic who is here for evaluation of several days of congestion, cough, productive cough, fevers a couple nights ago. She was having some tightness in her chest but she feels it is related to the cough. No lower extremity edema more than baseline for her. She has been doing her diuretics. Related Data Home Medications Medication Instructions Recorded Confirmed calcium citrate 200 mg (950 mg) PO ##0 06/18/17 tablet (Calcitrate) estradiol 1 mg tablet (Estrace) ##0 06/18/17 levothyroxine 75 mcg tablet 75 mcg PO ##0 06/18/17 (Synthroid) losartan 50 mg tablet 50 mg PO BID ##0 06/18/17 omeprazole 20 mg capsule,delayed 20 mg PO EVERY OTHER DAY ##0 06/18/17 release pravastatin 40 mg tablet 40 mg PO QPM ##0 06/18/17 triamterene 50 25 mg PO QDAY ##0 06/18/17 mg-hydrochlorothiazide 25 mg capsule warfarin 5 mg tablet (Coumadin) 5 mg PO QPM ##0 06/18/17 Previous Rx's Medication Instructions Recorded ondansetron 4 mg disintegrating 4 mg sublingual Q6HP PRN ##30 06/22/17 tablet (Zofran ODT) oxycodone-acetaminophen 5 mg-325 0 tab PO Q6HP PRN ##30 06/22/17 mg tablet polyethylene glycol 3350 17 gram 17 gm PO BID #20 doses 06/22/17 oral powder packet hydrocodone 5 mg-acetaminophen 325 1 tab PO Q6H PRN pain #10 tabs 05/16/21 mg tablet valacyclovir 1 gram tablet 1,000 mg PO Q12H #20 tabs 05/16/21 furosemide 20 mg tablet (Lasix) 20 mg PO DAILY #3 tabs 07/16/21 Allergies Allergy/AdvReac Type Severity Reaction Status Date / Time codeine [CODEINE] Allergy Intermediate NAUSEA Verified 12/06/23 12:04 Sulfa (Sulfonamide Allergy Intermediate broke out Verified 12/06/23 12:04 Antibiotics) in a rash [SULFA (SULFONAMIDE ANTIBIOTICS)] Review of Systems Review of Systems ROS Unobtainable: All systems reviewed & are unremarkable except as noted in HPI and below Patient History Social History Smoking Status: Never smoker Smoking Status: Never smoker alcohol intake frequency: a few times a week Substance Use Type: does not use Exam Initial Vital Signs Initial Vital Signs: Vital Signs Temperature 97.5 F L 12/06/23 12:00 Pulse Rate 93 H 12/06/23 12:00 Respiratory Rate 22 12/06/23 12:00 Blood Pressure 137/65 12/06/23 12:00 Pulse Oximetry 96 12/06/23 12:00 Oxygen Delivery Method Room Air 12/06/23 12:00 Const General: cooperative, well developed and No ill appearing HENMT Head: normal to inspection and normocephalic Resp Effort & Inspection: normal respiratory effort, cough, not labored and not tachypneic Auscultation: crackles and rhonchi Cardio Rate: regular rate Rhythm: abnormal rhythm Neuro General: patient alert, patient awake, patient oriented x3 and moves all extremities Extrem General: No edema Course Orders Ordered: ED Orders 12/06/23 12:05 XR chest 1V Stat EKG-12 Lead Stat Measure peak expiratory flow ONCE RT Consult Eval and Treat NOW 12/06/23 12:20 Complete Blood Count AUTO DIFF Stat Comprehensive Metabolic Panel Stat Lactate (Lactic Acid) Stat NT-proBNP (BNP-Adult 18+) Stat Prothrombin Time INR Stat Respiratory Panel (Film Array) Stat Troponin I Stat Vital Signs Vital signs: Vital Signs - 8 hr 12/06/23 12:00 12/06/23 12:08 12/06/23 12:08 Temperature 97.5 F L Pulse Rate 93 H 76 Respiratory Rate 22 Blood Pressure 137/65 141/71 H Pulse Oximetry 96 97 Oxygen Delivery Method Room Air 12/06/23 12:30 12/06/23 12:30 12/06/23 13:00 Temperature Pulse Rate 77 Respiratory Rate 21 Blood Pressure 126/67 124/78 Pulse Oximetry 98 Oxygen Delivery Method 12/06/23 13:00 12/06/23 13:30 12/06/23 13:30 Temperature Pulse Rate 73 73 Respiratory Rate 20 25 H Blood Pressure 137/83 Pulse Oximetry 96 98 Oxygen Delivery Method 12/06/23 13:48 12/06/23 13:48 12/06/23 14:00 Temperature Pulse Rate 79 76 Respiratory Rate 21 25 H Blood Pressure 164/115 H Pulse Oximetry 98 98 Oxygen Delivery Method 12/06/23 14:00 Temperature Pulse Rate Respiratory Rate Blood Pressure 147/74 H Pulse Oximetry Oxygen Delivery Method Medical Decision Making Lab Data Lab results reviewed: Yes I reviewed the patient's lab results. 12/06/23 12:20 12/06/23 12:20 Labs: Lab Results 12/06/23 Range/Units 12:20 WBC 6.7 (4.5-11.0) X10^3/uL RBC 4.00 (4.0-5.2) X10^6/uL Hgb 12.2 (12.0-16.0) g/dL Hct 35.4 L (36-46) % MCV 88.5 (80-100) fL MCH 30.4 (26-34) PG MCHC 34.4 (30-36) % RDW 13.6 (11.6-14.8) % Plt Count 271 (150-400) X10^3/uL Neut % (Auto) 70.6 (50-75) % Lymph % (Auto) 16.8 L (25-40) % [place] % (Auto) 8.8 (3-14) % Eos % (Auto) 3.0 (2-4) % Baso % (Auto) 0.8 (0-2) % Neut # (Auto) 4700 (4166-0364) /uL Lymph # (Auto) 1100 (0979-4199) /uL [place] # (Auto) 600 (0-900) /uL Eos # (Auto) 200 (0-450) /uL Baso # (Auto) 100 (0-100) /uL PT 18.0 H (9.4-12.5) SECONDS INR 1.6 H (0.9-1.3) Sodium 134 L (137-145) mmol/L Potassium 4.5 (3.4-5.1) mmol/L Chloride 102 (98-107) mmol/L Carbon Dioxide 26 (22-32) mmol/L BUN 20 H (7-17) mg/dL Creatinine 0.97 (0.52-1.04) mg/dL Estimated GFR 58 L (>60) mL/min BUN/Creatinine Ratio 20.6 (6-22) Glucose 159 H (80-110) mg/dL Lactate 0.9 (0.7-2.1) mmol/L Calcium 8.8 (8.4-10.2) mg/dL Total Bilirubin 0.8 (0.2-1.3) mg/dL AST 32 (14-36) IU/L ALT 24 (<35) IU/L Alkaline Phosphatase 53 (38-126) U/L Troponin I < 0.012 (0.01-0.034) ng/mL NT-Pro-B Natriuret Pep 1230 H (<450) pg/mL Total Protein 6.7 (6.3-8.2) g/dL Albumin 4.1 (3.5-5.0) g/dL Globulin 2.6 (1.7-4.1) g/dL Albumin/Globulin Ratio 1.6 (1.0-2.8) Chlamy pneumoniae PCR Not detected (Not Detect) Adenovirus (PCR) Not detected (Not Detect) B.parapertussis DNA PCR Not detected (Not Detecte) Coronavirus OC43 (PCR) Not detected (Not Detect) Coronavirus HKU1 (PCR) Not detected (Not Detect) Coronavirus 229E (PCR) Not detected (Not Detect) SARS-CoV-2 (PCR) Not detected (Not Detecte) Coronavirus NL63 (PCR) Not detected (Not Detect) Human Metapneumovir PCR Not detected (Not Detect) Influenza Type A (PCR) Not detected (Not Detect) Influenza Type B (PCR) Not detected (Not Detect) M. pneumoniae (PCR) Not detected (Not Detect) Parainfluenza 1 (PCR) Not detected (Not Detect) Parainfluenza 2 (PCR) Not detected (Not Detect) Parainfluenza 3 (PCR) Not detected (Not Detect) Parainfluenza 4 (PCR) Not detected (Not Detect) RSV (PCR) Not detected (Not Detect) Entero/Rhino (PCR) Detected H (Not Detect) Imaging Data Chest x-ray: Radiologist's Impression: PROCEDURE: XR CHEST 1V INDICATIONS: Shortness of breath TECHNIQUE: One view of the chest was acquired. COMPARISON: [facility], CR, XR CHEST 1V, 04/15/2022, 4:30. FINDINGS: Surgical changes and devices: Stable right breast surgical clips.. Lungs and pleura: Lungs are clear. No pleural effusions or pneumothorax. Mediastinum: Mediastinal contours appear normal. Heart is enlarged. Bones and chest wall: No suspicious bony lesions. Overlying soft tissues appear unremarkable. IMPRESSION: No acute cardiopulmonary abnormality is seen. ECG Data Attestation: I personally reviewed and interpreted this ECG as follows: Interpretation: Atrial fibrillation Ventricular rate 68 Normal axis Normal QRS No ST T wave changes MDM Narrative Medical decision making narrative: Low suspicion for ACS. Patient has a history of AFib and is on anticoagulation. I have low suspicion that this is PE. She was positive for rhino virus which does explain her bronchitis and also her other presenting symptoms. I discuss this with her. No indication for antibiotics. Will discharge home with instructions for symptom treatment. She was given return precautions and follow-up instructions. She expressed understanding and agreement with plan. Discharge Plan Departure Patient Disposition: Home Clinical Impression: Rhinovirus Instructions: Cough, DI for Viral Upper Respiratory Infection -- Adult Activity Restrictions/Additional Instructions: Recommend that you continue to take all of your medications as directed. You can try [id number] cough and cold preparations to try to help with your symptoms but be sure that you were reviewing the ingredients to these medications. Contact your primary doctor for a follow-up. Return to the emergency department for new or worsening symptoms. Prescriptions: No Action warfarin [Coumadin] 5 MG tablet 5 mg PO QPM Qty: 0 losartan 50 MG tablet 50 mg PO BID Qty: 0 levothyroxine [Synthroid] 75 MCG tablet 75 mcg PO Qty: 0 pravastatin 40 MG tablet 40 mg PO QPM Qty: 0 triamterene-hydrochlorothiazid 50 MG/25 MG capsule 25 mg PO QDAY Qty: 0 omeprazole 20 MG capsule,delayed release(DR/EC) 20 mg PO EVERY OTHER DAY Qty: 0 calcium citrate [Calcitrate] 200 mg (950 mg) tablet PO Qty: 0 estradiol [Estrace] 1 mg tablet Qty: 0 polyethylene glycol 3350 17 GM powder in packet 17 gm PO BID Qty: 20 0RF oxycodone-acetaminophen 5 MG/325 MG tablet 0 tab PO Q6HP PRNQty: 30 0RF ondansetron [Zofran ODT] 4 MG tablet,disintegrating 4 mg Sublingual Q6HP PRNQty: 30 0RF furosemide [Lasix] 20 mg tablet 20 mg PO DAILY Qty: 3 0RF valacyclovir 1 gram tablet 1,000 mg PO Q12H Qty: 20 0RF hydrocodone-acetaminophen 5-325 mg tablet 1 tab PO Q6H PRN (Reason: pain) Qty: 10 0RF Referrals: Robert Mcfarlane MD [Primary Care Provider] - Stand Alone Forms: Patient Portal/API
[2023-12-06 12:49] LABS: INR 1.6 (0.9-1.3)
[2023-12-06 12:58] LABS: Lactate (Lactic Acid) 0.9 mmol/L (0.7-2.1)
[2023-12-06 12:59] LABS: Alanine Aminotransferase 24 IU/L (<35); Albumin 4.1 g/dL (3.5-5.0); Albumin Globulin Ratio 1.6 (1.0-2.8); Alkaline Phosphatase 53 U/L (38-126); Aspartate Aminotransferase 32 IU/L (14-36); BUN Creatinine Ratio 20.6 (6-22); Bilirubin Total 0.8 mg/dL (0.2-1.3); Blood Urea Nitrogen 20 mg/dL (7-17); Calcium 8.8 mg/dL (8.4-10.2); Carbon Dioxide 26 mmol/L (22-32); Chloride 102 mmol/L (98-107); Estimated Glomerular Filt Rate 58 mL/min (>60); Globulin 2.6 g/dL (1.7-4.1); Glucose 159 mg/dL (80-110); HEMOLYSIS < 15 (0-50); Potassium 4.5 mmol/L (3.4-5.1); Sodium 134 mmol/L (137-145); Total Protein 6.7 g/dL (6.3-8.2)
[2023-12-06 13:09] LABS: NT-proBNP (BNP-Adult 18+) 1230 pg/mL (<450); Troponin I < 0.012 ng/mL (0.01-0.034)
[2023-12-06 13:25] LABS: Adenovirus Not Detected (Not Detect); B. parapertussis Not Detected (Not Detecte); Bordetella pertussis Not Detected (Not Detect); Chlamydophila pneumoniae Not Detected (Not Detect); Coronavirus 229E Not Detected (Not Detect); Coronavirus HKU1 Not Detected (Not Detect); Coronavirus NL 63 Not Detected (Not Detect); Coronavirus OC43 Not Detected (Not Detect); Human Metapneumovirus Not Detected (Not Detect); Human Rhinovirus/Enterovirus Detected (Not Detect); Influenza A Not Detected (Not Detect); Influenza B Not Detected (Not Detect); Mycoplasma pneumoniae Not Detected (Not Detect); Parainfluenza Virus 1 Not Detected (Not Detect); Parainfluenza Virus 2 Not Detected (Not Detect); Parainfluenza Virus 3 Not Detected (Not Detect); Parainfluenza Virus 4 Not Detected (Not Detect); Respiratory Syncytial Virus Not Detected (Not Detect); SARS- CoV-2 Not Detected (Not Detecte)
== END 2023-12-06 14:58 | disposition home or self-care (01) ==
PROVIDERS: Emergency Provider Emergency Medicine; PCP Family Medicine
DX: J20.6 Acute bronchitis due to rhinovirus (principal); I48.91 Unspecified atrial fibrillation; Z79.01 Long term (current) use of anticoagulants
CPT/HCPCS: 71045; 80053; 83605; 83880; 84484; 85025; 85610; 87633; 93005; 99283; 99284

== ENCOUNTER 2024-03-19 15:25 | Emergency (ER) | payer OTHER, SELFPAY ==
[2024-03-19 15:28] VITALS: BP 151/70; PULSE 71; RESP 18; TEMP 36.1; O2SAT 98; BMI 24.0
--- NOTE | 2024-03-19 16:38 | DI.CT.S_ITS ---
P of a in ROCEDURE: CT CERVICAL SPINE WO CON INDICATIONS: FALL TECHNIQUE: Noncontrast 3 mm thick sections acquired from the skull base to the T4 level. Sagittal and coronal reformats were then constructed. For radiation dose reduction, the following was used: automated exposure control, adjustment of mA and/or kV according to patient size. COMPARISON: None. FINDINGS: Image quality: Excellent. Bones: No fractures or dislocations. Severe cervical spondylosis. Suspect remote, healed anterior superior corner fracture of C5 vertebral body. Trace degenerative anterolisthesis of C4 on C5. Degenerative anterolisthesis of C7 on T1. Bilateral bony foraminal narrowing, most significantly at C3-C4 and C5-C6. Visualized superior ribs are intact. Soft tissues: Prevertebral soft tissues are normal in thickness. No paravertebral hematomas. No apical pneumothoraces. IMPRESSION: 1. No acute cervical fracture or dislocation. 2. Cervical spondylitic change. 3. Question remote healed C5 anterior superior for fracture. Dictated by: Ricardo Ibarra M.D. on 03/19/2024 at 17:17 Approved by: Ricardo Ibarra M.D. on 03/19/2024 at 17:22
--- NOTE | 2024-03-19 16:38 | DI.CT.S_ITS ---
PROCEDURE: CT LUMBAR SPINE WO CON INDICATIONS: FALL TECHNIQUE: Noncontrast 3 mm thick sections acquired from the T12 level to the sacrum. Sagittal and coronal reformats were constructed. For radiation dose reduction, the following was used: automated exposure control. COMPARISON: None. FINDINGS: Image quality: Excellent. Bones: There is normal bony alignment. No acute vertebral body compression fractures. No suspicious lytic or blastic bony lesions. No pars defects. There is multilevel degenerative change. There is a degree of canal stenosis at L2-L3 and L4-L5. No significant foraminal narrowing identified. Soft tissues: No retroperitoneal masses or hematomas. Visualized aorta is normal in caliber. IMPRESSION: 1. No acute compression fracture. 2. Degenerative change with a degree of canal stenosis at L2-L3 and L4-L5. Dictated by: Ricardo Ibarra M.D. on 03/19/2024 at 17:23 Approved by: Ricardo Ibarra M.D. on 03/19/2024 at 17:25
--- NOTE | 2024-03-19 16:39 | DI.CT.S_ITS ---
PROCEDURE: CT HEAD/BRAIN WO CON INDICATIONS: FALL ON ELIQUIS TECHNIQUE: Noncontrast 4.5 mm thick angled axial sections acquired from the foramen magnum to the vertex, with coronal and sagittal reformats. For radiation dose reduction, the following was used: automated exposure control, adjustment of mA and/or kV according to patient size. COMPARISON: None. FINDINGS: Image quality: Diagnostic. CSF spaces: Basal cisterns are patent. No extra-axial fluid collections. The ventricles are symmetric in size and shape. Brain: No intracranial bleeds or masses. There is cerebral volume loss for age, with resultant ventricular and sulcal prominence. There are periventricular and deep white matter chronic small vessel ischemic changes. There is intracranial internal carotid artery atherosclerosis. Skull and face: Calvarium and visualized facial bones appear intact, without suspicious lesions. Sinuses: Visualized sinuses and mastoids are clear. IMPRESSION: No acute intracranial pathology. Dictated by: Ricardo Ibarra M.D. on 03/19/2024 at 17:17 Approved by: Ricardo Ibarra M.D. on 03/19/2024 at 17:17
--- NOTE | 2024-03-19 16:40 | DI.RAD.S_ITS ---
PROCEDURE: XR ELBOW RT MIN 3V INDICATIONS: fall TECHNIQUE: 3 views of the elbow were acquired. COMPARISON: None. FINDINGS: Bones: No fractures or dislocations. Dorsal enthesophyte formation involving proximal olecranon is seen. No suspicious bony lesions. Soft tissues: No elbow joint effusion. No suspicious soft tissue calcifications. IMPRESSION: No acute elbow fracture or dislocation. No significant joint effusion. Dictated by: Lavell Moreno M.D. on 03/19/2024 at 17:04 Approved by: Lavell Moreno M.D. on 03/19/2024 at 17:08
--- NOTE | 2024-03-19 16:41 | DI.RAD.S_ITS ---
PROCEDURE: XR ELBOW LT MIN 3V INDICATIONS: fall TECHNIQUE: 3 views of the elbow were acquired. COMPARISON: None. FINDINGS: Bones: No fractures or dislocations. No suspicious bony lesions. Soft tissues: No elbow joint effusion. No suspicious soft tissue calcifications. IMPRESSION: No acute elbow fracture or dislocation. No significant joint effusion. Dictated by: Laevll Moreno M.D. on 03/19/2024 at 17:04 Approved by: Lavell Moreno M.D. on 03/19/2024 at 17:04
--- NOTE | 2024-03-19 18:15 | ED.FALL ---
HPI - Fall <Fatimah Reyna PA-C - Last Filed: 03/19/24 18:21> General Chief Complaint: Fall Stated Complaint: Fall, blood thinners, back px Time Seen by Provider: 03/19/24 16:30 Source: patient Mode of arrival: Ambulatory History of Present Illness HPI Narrative: 83-year-old female on Eliquis for AFib presents to the ED status post a mechanical fall sustained 3 days ago. Patient tripped over some wood in her garage, causing her to fall. Patient is unsure of head strike. Patient is complaining of some neck pain and stiffness, bilateral elbow pain and pain in the tailbone. Patient states that the pain in the tailbone is the most troublesome complaint. Patient denies loss of consciousness. Patient is able to walk. Related Data Home Medications Medication Instructions Recorded Confirmed calcium citrate 200 mg (950 mg) PO ##0 06/18/17 tablet (Calcitrate) estradiol 1 mg tablet (Estrace) ##0 06/18/17 levothyroxine 75 mcg tablet 75 mcg PO ##0 06/18/17 (Synthroid) losartan 50 mg tablet 50 mg PO BID ##0 06/18/17 omeprazole 20 mg capsule,delayed 20 mg PO EVERY OTHER DAY ##0 06/18/17 release pravastatin 40 mg tablet 40 mg PO QPM ##0 06/18/17 triamterene 50 25 mg PO QDAY ##0 06/18/17 mg-hydrochlorothiazide 25 mg capsule warfarin 5 mg tablet (Coumadin) 5 mg PO QPM ##0 06/18/17 Previous Rx's Medication Instructions Recorded ondansetron 4 mg disintegrating 4 mg sublingual Q6HP PRN ##30 06/22/17 tablet (Zofran ODT) oxycodone-acetaminophen 5 mg-325 0 tab PO Q6HP PRN ##30 06/22/17 mg tablet polyethylene glycol 3350 17 gram 17 gm PO BID #20 doses 06/22/17 oral powder packet hydrocodone 5 mg-acetaminophen 325 1 tab PO Q6H PRN pain #10 tabs 05/16/21 mg tablet valacyclovir 1 gram tablet 1,000 mg PO Q12H #20 tabs 05/16/21 furosemide 20 mg tablet (Lasix) 20 mg PO DAILY #3 tabs 07/16/21 Allergies Allergy/AdvReac Type Severity Reaction Status Date / Time codeine [CODEINE] Allergy Intermediate NAUSEA Verified 12/06/23 12:04 Sulfa (Sulfonamide Allergy Intermediate broke out Verified 12/06/23 12:04 Antibiotics) in a rash [SULFA (SULFONAMIDE ANTIBIOTICS)] Review of Systems <Fatimah Reyna PA-C - Last Filed: 03/19/24 18:21> Constitutional Constitutional: Denies chills, Denies fatigue, Denies fever(s), Denies frequent falls, Denies lethargy and Denies weakness Eyes Eyes: Denies change in vision, Denies eye discharge, Denies irritation and Denies loss of vision ENT Ears, Nose, Mouth, and Throat: Denies change in voice, Denies dizziness, Reports neck pain, Denies sore throat and Denies throat swelling Cardiovascular Cardiovascular: Denies chest pain, Denies irregular heart rhythm, Denies lightheadedness, Denies palpitations, Denies dyspnea, Denies dyspnea on exertion and Denies orthopnea Respiratory Respiratory: Denies cough, Denies dyspnea, Denies dyspnea on exertion and Denies wheezing Gastrointestinal Gastrointestinal: Denies abdominal pain, Denies change in bowel habits, Denies diarrhea, Denies nausea and Denies vomiting Musculoskeletal Musculoskeletal: Reports back pain, Reports neck pain and Denies numbness Comments: No numbness, tingling, weakness. Bilateral elbow pain Integumentary/Breasts Skin/Breast: Denies pruritus, Denies erythema, Denies rash and Denies wounds Neurologic Neurologic: Denies behavioral changes, Denies confusion, Denies dizziness, Denies frequent falls, Denies loss of vision, Denies numbness and Denies weakness Psychiatric Psychiatric: Denies anxiety, Denies behavioral changes, Denies confusion, Denies depression, Denies homicidal ideation and Denies suicidal ideation Endocrine Endocrine: Denies fatigue, Denies flushing and Denies palpitations Hematologic/Lymphatic Hematologic/Lymphatic: Denies easy bruising Allergic/Immunologic Allergic/Immunologic: Denies urticaria, Denies throat swelling and Denies wheezing Patient History <Fatimah Reyna PA-C - Last Filed: 03/19/24 18:21> Social History Smoking Status: Never smoker Smoking Status: Never smoker alcohol intake frequency: a few times a week Substance Use Type: does not use Exam <Fatimah Reyna PA-C - Last Filed: 03/19/24 18:21> Narrative Exam Narrative: Const General:?cooperative, healthy appearing and comfortable HENRI Head:?normal to inspection Ears:?hearing grossly normal bilaterally Nose:?external nose normal Face and sinus:?normal facial exam and sinuses nontender Mouth:?oral mucosae normal Throat:?posterior oropharynx normal Eyes General:?appearance normal, both eyes and all related structures Neck Neck:?normal visual inspection and no lymphadenopathy noted Resp Effort & Inspection:?normal respiratory effort Auscultation:?clear to auscultation bilaterally Cardio Rate:?regular rate Rhythm:?regular rhythm Musculoskeletal There is bruising noted to bilateral triceps areas, left greater than right. There is some bony tenderness to the right elbow. There is full range of motion. Tenderness to palpation of the sacrum and cervical regions. Strength and sensation intact. Patient is neurovascularly intact. Neuro General:?patient alert, patient awake and patient oriented x3 Initial Vital Signs Initial Vital Signs: Vital Signs Temperature 96.9 F L 03/19/24 15:28 Pulse Rate 71 03/19/24 15:28 Respiratory Rate 18 03/19/24 15:28 Blood Pressure 151/70 H 03/19/24 15:28 Pulse Oximetry 98 03/19/24 15:28 Oxygen Delivery Method Room Air 03/19/24 15:28 <Robert Schaeffer DO - Last Filed: 03/19/24 18:26> Initial Vital Signs Initial Vital Signs: Vital Signs Temperature 96.9 F L 03/19/24 15:28 Pulse Rate 71 03/19/24 15:28 Respiratory Rate 18 03/19/24 15:28 Blood Pressure 151/70 H 03/19/24 15:28 Pulse Oximetry 98 03/19/24 15:28 Oxygen Delivery Method Room Air 03/19/24 15:28 Course <Fatimah Reyna PA-C - Last Filed: 03/19/24 18:21> Orders Ordered: ED Orders 03/19/24 16:38 CT cervical spine wo con Stat CT lumbar spine wo con Stat 03/19/24 16:39 CT head/brain wo con Stat 03/19/24 16:40 XR elbow RT min 3V Stat 03/19/24 16:41 XR elbow LT min 3V Stat Vital Signs Vital signs: Vital Signs - 8 hr 03/19/24 15:28 Temperature 96.9 F L Pulse Rate 71 Respiratory Rate 18 Blood Pressure 151/70 H Pulse Oximetry 98 Oxygen Delivery Method Room Air <Robert Schaeffer DO - Last Filed: 03/19/24 18:26> Orders Ordered: ED Orders 03/19/24 16:38 CT cervical spine wo con Stat CT lumbar spine wo con Stat 03/19/24 16:39 CT head/brain wo con Stat 03/19/24 16:40 XR elbow RT min 3V Stat 03/19/24 16:41 XR elbow LT min 3V Stat Vital Signs Vital signs: Vital Signs - 8 hr 03/19/24 15:28 Temperature 96.9 F L Pulse Rate 71 Respiratory Rate 18 Blood Pressure 151/70 H Pulse Oximetry 98 Oxygen Delivery Method Room Air MDM - Fall <Fatimah Reyna PA-C - Last Filed: 03/19/24 18:21> MDM Narrative Medical decision making narrative: 83-year-old female on Eliquis for AFib presents to the ED status post a mechanical fall sustained 3 days ago. Concern for intracranial hemorrhage versus fracture/dislocation versus musculoskeletal sprain/strain versus other. Will obtain CT head, CT C-spine, CT cervical, CT lumbar spine, x-rays of bilateral elbows. Imaging negative for any acute findings. Discussed findings with patient. Recommend Tylenol, heat packs, lidocaine patches for symptoms. Recommend follow-up with PCP as soon as possible. ED return precautions discussed with patient. Patient verbalized understanding. Medical records reviewed: Yes Discharge Plan Departure Patient Disposition: Home Clinical Impression: Fall Qualifiers: Encounter type: initial encounter Qualified Code(s): W19.XXXA - Unspecified fall, initial encounter Instructions: How to Prevent Falls Activity Restrictions/Additional Instructions: You were evaluated in the ED today following a fall. Your x-rays were normal. CT head and CT of your neck and lower back were also normal. It appears that you are suffering some symptoms due to a contusion from the fall. You may continue to take Tylenol, apply heat packs, lidocaine patches for relief. Please follow-up with your PCP as soon as possible. Return to the ED if you have worsening symptoms. Prescriptions: No Action warfarin [Coumadin] 5 MG tablet 5 mg PO QPM Qty: 0 losartan 50 MG tablet 50 mg PO BID Qty: 0 levothyroxine [Synthroid] 75 MCG tablet 75 mcg PO Qty: 0 pravastatin 40 MG tablet 40 mg PO QPM Qty: 0 triamterene-hydrochlorothiazid 50 MG/25 MG capsule 25 mg PO QDAY Qty: 0 omeprazole 20 MG capsule,delayed release(DR/EC) 20 mg PO EVERY OTHER DAY Qty: 0 calcium citrate [Calcitrate] 200 mg (950 mg) tablet PO Qty: 0 estradiol [Estrace] 1 mg tablet Qty: 0 polyethylene glycol 3350 17 GM powder in packet 17 gm PO BID Qty: 20 0RF oxycodone-acetaminophen 5 MG/325 MG tablet 0 tab PO Q6HP PRNQty: 30 0RF ondansetron [Zofran ODT] 4 MG tablet,disintegrating 4 mg Sublingual Q6HP PRNQty: 30 0RF furosemide [Lasix] 20 mg tablet 20 mg PO DAILY Qty: 3 0RF valacyclovir 1 gram tablet 1,000 mg PO Q12H Qty: 20 0RF hydrocodone-acetaminophen 5-325 mg tablet 1 tab PO Q6H PRN (Reason: pain) Qty: 10 0RF Referrals: Robert Mcfarlane MD [Primary Care Provider] - Stand Alone Forms: Patient Portal/API ED Sign-out <Robert Schaeffer, DO - Last Filed: 03/19/24 18:26> Cosign ED Attending Cosignature Attestation: Dr Schaeffer Co-Sign Statement: I was available for consultation during this patient's emergency department visit. This chart is signed by myself for administrative purposes only. I did not have direct contact with this patient during this visit. They were seen independently by the APC.
[2024-03-19 18:25] VITALS: BP 113/63; PULSE 87; RESP 14; O2SAT 99
== END 2024-03-19 18:25 | disposition home or self-care (01) ==
PROVIDERS: Emergency Provider Student in an Organized Health Care Education/Training Program; PCP Family Medicine
DX: S09.90XA Unspecified injury of head, initial encounter (principal); M25.522 Pain in left elbow; M25.521 Pain in right elbow; M54.2 Cervicalgia; M53.3 Sacrococcygeal disorders, not elsewhere classified; I48.91 Unspecified atrial fibrillation; Z79.01 Long term (current) use of anticoagulants; W01.0XXA Fall on same level from slipping, tripping and stumbling without subsequent striking against object, initial encounter
CPT/HCPCS: 70450; 72125; 72131; 73080; 99284

== ENCOUNTER 2024-06-07 21:18 | Emergency (ER) | payer OTHER, SELFPAY ==
[2024-06-07 21:21] VITALS: BP 171/76; PULSE 78; RESP 14; O2SAT 100; BMI 24.0
--- NOTE | 2024-06-07 21:48 | ED_ITS ---
HPI - General Adult General Chief complaint: Extremity Injury, Upper Stated complaint: hand injury Time Seen by Provider: 06/07/24 21:31 Source: patient Mode of arrival: Ambulatory History of Present Illness HPI narrative: Patient was an 83-year-old female who states that she was taking shower. she was washing her so she had a sudden pain with movement of the right middle finger. It was on the back of her hand. It now hurts to extend the finger. Symptoms that this have happened in the past but they have never lasted this long. She did not fall. There was no specific injury. Pain does radiate somewhat up to her wrist. She does have history of arthritis. Related Data Home Medications Medication Instructions Recorded Confirmed calcium citrate 200 mg (950 mg) PO ##0 06/18/17 tablet (Calcitrate) estradiol 1 mg tablet (Estrace) ##0 06/18/17 levothyroxine 75 mcg tablet 75 mcg PO ##0 06/18/17 (Synthroid) losartan 50 mg tablet 50 mg PO BID ##0 06/18/17 omeprazole 20 mg capsule,delayed 20 mg PO EVERY OTHER DAY ##0 06/18/17 release pravastatin 40 mg tablet 40 mg PO QPM ##0 06/18/17 triamterene 50 25 mg PO QDAY ##0 06/18/17 mg-hydrochlorothiazide 25 mg capsule warfarin 5 mg tablet (Coumadin) 5 mg PO QPM ##0 06/18/17 Previous Rx's Medication Instructions Recorded ondansetron 4 mg disintegrating 4 mg sublingual Q6HP PRN ##30 06/22/17 tablet (Zofran ODT) oxycodone-acetaminophen 5 mg-325 0 tab PO Q6HP PRN ##30 06/22/17 mg tablet polyethylene glycol 3350 17 gram 17 gm PO BID #20 doses 06/22/17 oral powder packet hydrocodone 5 mg-acetaminophen 325 1 tab PO Q6H PRN pain #10 tabs 05/16/21 mg tablet valacyclovir 1 gram tablet 1,000 mg PO Q12H #20 tabs 05/16/21 furosemide 20 mg tablet (Lasix) 20 mg PO DAILY #3 tabs 07/16/21 Allergies Allergy/AdvReac Type Severity Reaction Status Date / Time codeine [CODEINE] Allergy Intermediate NAUSEA Verified 12/06/23 12:04 Sulfa (Sulfonamide Allergy Intermediate broke out Verified 12/06/23 12:04 Antibiotics) in a rash [SULFA (SULFONAMIDE ANTIBIOTICS)] Review of Systems Musculoskeletal Musculoskeletal: Reports system reviewed and no additional complaints, except as documented Integumentary/Breasts Skin/Breast: Reports system reviewed and no additional complaints, except as documented Neurologic Neurologic: Reports system reviewed and no additional complaints, except as documented Patient History Social History Smoking Status: Never smoker Smoking Status: Never smoker alcohol intake frequency: a few times a week Substance Use Type: does not use Exam Initial Vital Signs Initial Vital Signs: Vital Signs Pulse Rate 78 06/07/24 21:21 Respiratory Rate 14 06/07/24 21:21 Blood Pressure 171/76 H 06/07/24 21:21 Pulse Oximetry 100 06/07/24 21:21 Oxygen Delivery Method Room Air 06/07/24 21:21 Cardio Pulses: radial pulses present on the right Skin General: no rashes or lesions noted Neuro Sensory Exam: no sensory deficits noted Extrem Other: Pain seems to be located with extending the MCP joint of the right middle finger. Her thumb index Ring and little finger are all unremarkable. Right wrist is unremarkable. Procedures Orthopedic Splinting/Casting Injury #1: Side: right Upper Extremity Injury Location: finger Upper Extremity Immobilizer: aluminum form splint Post splinting neuro exam: no change Post splinting vascular exam: no change Placed by: Nursing Course Orders Ordered: ED Orders 06/07/24 21:48 XR hand RT min 3V Stat Discontinued Medications Acetaminophen (Acetaminophen 325 Mg Tablet) 650 mg PO NOW ONE Stop: 06/07/24 22:18 Last Admin: 06/07/24 22:24 Dose: 650 mg Documented By: GER Vital Signs Vital signs: Vital Signs - 8 hr 06/07/24 21:21 06/07/24 23:10 Pulse Rate 78 84 Respiratory Rate 14 16 Blood Pressure 171/76 H 133/61 Pulse Oximetry 100 100 Oxygen Delivery Method Room Air Room Air Medical Decision Making Imaging Data Extremity x-ray #1: Radiologist's Impression: PROCEDURE: XR HAND RT MIN 3V INDICATIONS: R middle finger MCP joint pain TECHNIQUE: 3 views of the hand(s) acquired. COMPARISON: None. FINDINGS: Bones: No fractures or dislocations. Carpal bones are normally aligned. No suspicious bony lesions. Arthritic changes most prominent the DIP joints. Soft tissues: No suspicious soft tissue calcifications. IMPRESSION: Arthritic changes. No visualized acute fracture or dislocation. However, if clinical concern and/or pain persist, short interval imaging followup in 7-10 days is recommended, as occult injury cannot be definitively excluded. MDM Narrative Medical decision making narrative: neurovascularly intact. X-ray shows no acute pathology. She was placed in a woman who splint for comfort that she can take off to wash your hands. Recommen ded ice and conservative measures to include anti-inflammatories. Patient was given return precautions and follow-up instructions. I suspect that her symptoms will improve over the next couple days. Discharge Plan Departure Patient Disposition: Home Clinical Impression: Finger pain, right Instructions: How To Perform RICE (Rest, Ice, Compress, Elevate) Activity Restrictions/Additional Instructions: the splint that was placed today is for comfort. You can remove it to wash your hands. I recommend ice over the area. Tylenol and or ibuprofen can be helpful. Return to the emergency department for new symptoms. Prescriptions: No Action warfarin [Coumadin] 5 MG tablet 5 mg PO QPM Qty: 0 losartan 50 MG tablet 50 mg PO BID Qty: 0 levothyroxine [Synthroid] 75 MCG tablet 75 mcg PO Qty: 0 pravastatin 40 MG tablet 40 mg PO QPM Qty: 0 triamterene-hydrochlorothiazid 50 MG/25 MG capsule 25 mg PO QDAY Qty: 0 omeprazole 20 MG capsule,delayed release(DR/EC) 20 mg PO EVERY OTHER DAY Qty: 0 calcium citrate [Calcitrate] 200 mg (950 mg) tablet PO Qty: 0 estradiol [Estrace] 1 mg tablet Qty: 0 polyethylene glycol 3350 17 GM powder in packet 17 gm PO BID Qty: 20 0RF oxycodone-acetaminophen 5 MG/325 MG tablet 0 tab PO Q6HP PRNQty: 30 0RF ondansetron [Zofran ODT] 4 MG tablet,disintegrating 4 mg Sublingual Q6HP PRNQty: 30 0RF furosemide [Lasix] 20 mg tablet 20 mg PO DAILY Qty: 3 0RF valacyclovir 1 gram tablet 1,000 mg PO Q12H Qty: 20 0RF hydrocodone-acetaminophen 5-325 mg tablet 1 tab PO Q6H PRN (Reason: pain) Qty: 10 0RF Referrals: Robert Mcfarlane MD [Primary Care Provider] - Stand Alone Forms: Patient Portal/API/Survey
[2024-06-07] MEDS: ACETAMINOPHEN 325 MG TABLET 650 MG PO (22:24)
[2024-06-07 23:10] VITALS: BP 133/61; PULSE 84; RESP 16; O2SAT 100
== END 2024-06-07 23:11 | disposition home or self-care (01) ==
PROVIDERS: Emergency Provider Emergency Medicine; PCP Family Medicine
DX: M79.644 Pain in right finger(s) (principal)
CPT/HCPCS: 29130; 73130; 99283

== ENCOUNTER → 2024-12-18 10:15 | Outpatient (CLI) | payer OTHER, SELFPAY | LOC: WC 12-27 16:09 | PROVIDERS: Family Provider Family Medicine; PCP Family Medicine; Referring Provider Dermatology MOHS-Micrographic Surgery; Visit Provider Surgery | DX: T81.89XA Other complications of procedures, not elsewhere classified, initial encounter (principal); S81.802A Unspecified open wound, left lower leg, initial encounter; I48.91 Unspecified atrial fibrillation; I10 Essential (primary) hypertension; I50.20 Unspecified systolic (congestive) heart failure; Z85.828 Personal history of other malignant neoplasm of skin; Z79.01 Long term (current) use of anticoagulants; R60.0 Localized edema | CPT/HCPCS: 11042; 87070; 87077; 87186; 87205; 99213; 99214 ==

== ENCOUNTER → 2024-12-25 15:51 | Outpatient (CLI) | payer OTHER, SELFPAY | PROVIDERS: Family Provider Family Medicine; PCP Family Medicine; Referring Provider Family Medicine; Visit Provider Surgery | DX: T81.89XA Other complications of procedures, not elsewhere classified, initial encounter (principal); S81.802A Unspecified open wound, left lower leg, initial encounter; S81.012A Laceration without foreign body, left knee, initial encounter; Z79.01 Long term (current) use of anticoagulants; R60.0 Localized edema | CPT/HCPCS: 11042; 99213 ==

== ENCOUNTER → 2025-01-01 16:01 | Outpatient (CLI) | payer OTHER, SELFPAY | PROVIDERS: Family Provider Family Medicine; PCP Family Medicine; Referring Provider Family Medicine; Visit Provider Surgery | DX: T81.89XA Other complications of procedures, not elsewhere classified, initial encounter (principal); S81.802A Unspecified open wound, left lower leg, initial encounter; L98.8 Other specified disorders of the skin and subcutaneous tissue; S81.012A Laceration without foreign body, left knee, initial encounter; R60.0 Localized edema; E11.628 Type 2 diabetes mellitus with other skin complications; I11.0 Hypertensive heart disease with heart failure; I50.9 Heart failure, unspecified; I48.91 Unspecified atrial fibrillation; Z85.828 Personal history of other malignant neoplasm of skin; Z79.01 Long term (current) use of anticoagulants | CPT/HCPCS: 11042 ==

== ENCOUNTER → 2025-01-07 09:39 | Outpatient (CLI) | payer OTHER, SELFPAY ==
--- NOTE | 2025-01-07 09:40 | DI.US.S_ITS ---
PROCEDURE: US ARTERIAL DUPLEX LE LT INDICATIONS: eval arterial satus LLE, wound to left leg TECHNIQUE: Color and pulse Doppler interrogation was performed of the left lower extremity arterial system, with image documentation. COMPARISON: None. FINDINGS: Common femoral artery: 106 cm/sec, with triphasic flow. Deep femoral artery: 54 cm/sec, with biphasic flow. Proximal superficial femoral artery: 112 cm/sec, with triphasic flow. Mid superficial femoral artery: 91 cm/sec, with triphasic flow. Distal superficial femoral artery: 89 cm/sec, with triphasic flow. Popliteal artery: 139 cm/sec, with triphasic flow. Posterior tibial artery: 53 cm/sec, with biphasic flow. Anterior tibial artery/dorsalis pedis: 157 cm/sec, with biphasic flow. Ayala-scale imaging description: No hemodynamically significant stenosis or significant atheromatous plaque. IMPRESSION: Decreased velocity within the posterior tibial artery which may be associated with a hemodynamically significant stenosis. Otherwise triphasic and biphasic waveforms throughout without findings to suggest hemodynamically significant stenosis. Dictated by: Desiree Thompson M.D. on 01/07/2025 at 17:36 Approved by: Desiree Thompson M.D. on 01/07/2025 at 17:38
== END ==
PROVIDERS: Family Provider Family Medicine; PCP Family Medicine; Referring Provider Surgery; Visit Provider Surgery
DX: S81.802A Unspecified open wound, left lower leg, initial encounter (principal); X58.XXXA Exposure to other specified factors, initial encounter
CPT/HCPCS: 93926

== ENCOUNTER → 2025-01-09 09:05 | Outpatient (CLI) | payer OTHER, SELFPAY | LOC: WC 09:06 | PROVIDERS: Family Provider Family Medicine; PCP Family Medicine; Referring Provider Family Medicine; Visit Provider Surgery | DX: T81.89XA Other complications of procedures, not elsewhere classified, initial encounter (principal); S81.802A Unspecified open wound, left lower leg, initial encounter; S81.012A Laceration without foreign body, left knee, initial encounter; E11.628 Type 2 diabetes mellitus with other skin complications; Z79.01 Long term (current) use of anticoagulants | CPT/HCPCS: 11042 ==

== ENCOUNTER → 2025-01-17 15:24 | Outpatient (CLI) | payer OTHER, SELFPAY | PROVIDERS: Family Provider Family Medicine; PCP Family Medicine; Referring Provider Family Medicine; Visit Provider Surgery | DX: T81.89XA Other complications of procedures, not elsewhere classified, initial encounter (principal); S81.802A Unspecified open wound, left lower leg, initial encounter; S81.012D Laceration without foreign body, left knee, subsequent encounter; E11.628 Type 2 diabetes mellitus with other skin complications; Z79.01 Long term (current) use of anticoagulants | CPT/HCPCS: 11042; 99213 ==

== ENCOUNTER → 2025-01-24 16:35 | Outpatient (CLI) | payer OTHER, SELFPAY ==
--- NOTE | 2025-01-24 16:37 | DI.RAD.S_ITS ---
PROCEDURE: XR WRIST LT MIN 3V INDICATIONS: HAND PAIN TECHNIQUE: 3 views of the wrist were acquired. COMPARISON: [facility], CR, XR WRIST LT MIN 3V, 01/14/2023, 15:56. FINDINGS: Bones: No fractures or dislocations. No suspicious bony lesions. Redemonstration of polyarticular degenerative changes of the left wrist and hand most pronounced at the triscaphe joint. Hand findings are dictated in separate report. Scapholunate interval appears within normal limits. Soft tissues: No suspicious soft tissue calcifications. IMPRESSION: Left wrist without acute osseous abnormalities. Degenerative changes of the left wrist most pronounced at the triscaphe joint. Dictated by: Wallace Bergeron M.D. on 01/25/2025 at 9:36 Approved by: Wallace Bergeron M.D. on 01/25/2025 at 9:38
--- NOTE | 2025-01-24 16:38 | DI.RAD.S_ITS ---
PROCEDURE: XR HAND LT MIN 3V INDICATIONS: HAND PAIN TECHNIQUE: 3 views of the hand(s) acquired. COMPARISON: [facility], CR, XR WRIST LT MIN 3V, 01/14/2023, 15:56. [facility], CR, XR HAND RT MIN 3V, 06/07/2024, 21:46. FINDINGS: Bones: No fractures or dislocations. Carpal bones are normally aligned. No suspicious bony lesions. Moderate polyarticular background degenerative changes of the left hand most pronounced in the interphalangeal joints and metacarpophalangeal joints. Degenerative changes are most pronounced at the interphalangeal joint of the left thumb, 1st metacarpophalangeal joint, triscaphe joint, and distal interphalangeal joints of the 2nd, 3rd, and 5th fingers. Soft tissues: No suspicious soft tissue calcifications. IMPRESSION: Left hand without acute osseous abnormalities. 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 Dictated by: Wallace Bergeron M.D. on 01/25/2025 at 9:38 Approved by: Wallace Bergeron M.D. on 01/25/2025 at 9:40
== END ==
PROVIDERS: Family Provider Family Medicine; PCP Family Medicine; Referring Provider Family Medicine; Visit Provider Family Medicine
DX: M79.642 Pain in left hand (principal)
CPT/HCPCS: 73110; 73130

== ENCOUNTER 2025-01-27 19:34 | Emergency (ER) | payer OTHER, SELFPAY ==
[2025-01-27 20:03] VITALS: BP 155/79; PULSE 75; RESP 15; TEMP 36.7; O2SAT 99; BMI 23.0
--- NOTE | 2025-01-27 20:55 | ED.EXTPRO ---
HPI - Extremity Problem General Chief complaint: Extremity Problem,Nontraumatic Stated complaint: Lt hand possible infection, pain Time Seen by Provider: 01/27/25 20:43 Source: patient Mode of arrival: Ambulatory History of Present Illness HPI Narrative: 84-year-old woman with diabetes, hypertension, congestive heart failure, hyperlipidemia presents with increasing pain in the left hand. She was seen by a primary care physician on January 24 an x-ray was done showed polyarticular degenerative changes but no other significant abnormalities. She is now noticing some mild redness and swelling in the pain is getting worse. She is not having fevers or chills. She has taken some Tylenol but found that it has not been completely effective for pain control. She does have tramadol to use at home but tries to avoid it as it ?makes her feel funny?. No nausea or vomiting. No other joints involved. No obvious trauma to the hand Related Data Home Medications ?Medication ?Instructions ?Recorded ?Confirmed calcium citrate (Calcitrate) 400 mg PO DAILY ##0 06/18/17 01/27/25 estradiol 1 mg tablet (Estrace) 1 mg PO .every other ##0 06/18/17 01/27/25 losartan 50 mg tablet 50 mg PO BID ##0 06/18/17 01/27/25 omeprazole 20 mg capsule,delayed 20 mg PO EVERY OTHER DAY ##0 06/18/17 01/27/25 release pravastatin 40 mg tablet 40 mg PO QPM ##0 06/18/17 01/27/25 apixaban 5 mg tablet (Eliquis) 5 mg PO BID 01/27/25 01/27/25 carvedilol 12.5 mg tablet 12.5 mg PO BID 01/27/25 01/27/25 metformin 500 mg tablet 500 mg PO BID 01/27/25 01/27/25 potassium chloride 10 mEq 10 meq PO DAILY 01/27/25 01/27/25 tablet,extended release rosuvastatin 40 mg tablet 40 mg PO DAILY 01/27/25 01/27/25 spironolactone 25 mg tablet 25 mg PO DAILY 01/27/25 01/27/25 Previous Rx's ?Medication ?Instructions ?Recorded furosemide 20 mg tablet (Lasix) 20 mg PO DAILY #3 tabs 07/16/21 doxycycline hyclate 100 mg capsule 100 mg PO BID #14 caps 01/27/25 Allergies Allergy/AdvReac Type Severity Reaction Status Date / Time codeine (CODEINE) Allergy Intermediate NAUSEA Verified 01/27/25 19:59 Sulfa (Sulfonamide Allergy Intermediate broke out Verified 01/27/25 19:59 Antibiotics) (SULFA in a rash (SULFONAMIDE ANTIBIOTICS)) Review of Systems Review of Systems Narrative: Pertinent positive and negative findings as per HPI Patient History Smoking Status: Never smoker alcohol intake frequency: a few times a week Exam Initial Vital Signs Initial Vital Signs: Vital Signs Temperature 98.1 F 01/27/25 20:03 Pulse Rate 75 01/27/25 20:03 Respiratory Rate 15 01/27/25 20:03 Blood Pressure 155/79 H 01/27/25 20:03 Pulse Oximetry 99 01/27/25 20:03 Oxygen Delivery Method Room Air 01/27/25 20:03 General: Alert appropriate in no acute distress Respiratory: Able to speak in full sentences, no obvious respiratory distress Skin: No obvious rashes, warm and dry Neurologic: Grossly intact no obvious asymmetries or abnormalities Psych: appropriate insight and affect, cooperative Extremity: The dorsum of the left hand has some mild erythema without skin breakdown, obvious underlying fluctuant abscess or drainage. There is some mild swelling through the midportion of the hand. She does not have tenderness with passive manipulation of fingers, knuckles, base of the thumb or carpal bones to suggest a septic arthritis. It does appear to be a developing mild cellulitis without significant spread or lymphangitic streaking. Course Vital Signs Vital signs: Vital Signs - 8 hr 01/27/25 20:03 Temperature 98.1 F Pulse Rate 75 Respiratory Rate 15 Blood Pressure 155/79 H Pulse Oximetry 99 Oxygen Delivery Method Room Air MDM - Extremity (Nontraumatic) MDM Narrative Medical decision making narrative: 84-year-old woman presents with 4 days of increasing left hand pain. She was seen by a primary care physician x-rays were unremarkable, now slightly more swollen and erythematous. Appears to be developing a cellulitis of the dorsum of the hand without underlying abscess. Based on her clinical exam and pain distribution I am not suspicious for septic arthritis or gout. The does not appear to be obvious foreign body. At this point there is no abscess and no drainage is required. She is started on doxycycline, a prescription will be sent to her pharmacy of choice. We talked about keeping the hand elevated, using the brace she has a if she finds that it helps with comfort. Using warmth to the hand rather than ice. Tylenol for pain control during the day and suggested she might go ahead and try 1 of her tramadol at night to see if that least helps her sleep. At this point there was no evidence of sepsis or further concerns that would require additional imaging, workup or hospitalization and she was discharged home Discharge Plan Departure Patient Disposition: Home Clinical Impression: Cellulitis Qualifiers: Site of cellulitis: extremity Site of cellulitis of extremity: upper extremity Laterality: left Qualified Code(s): L03.114 - Cellulitis of left upper limb Instructions: DI for Cellulitis -- Adult Activity Restrictions/Additional Instructions: Thank you for coming in today I do think that you are developing an infection on the back of your hand. There is no current abscess this does not need to be drained. I am not seeing any joint involvement to suggest a septic arthritis or of breath sure. The x-ray that was done by your primary doctor on the is quite reassuring In the emergency department you were given a dose of doxycycline, I would suggest you complete the 7 days of doxycycline that I have sent to [facility] in [place] For pain control, keeping the hand elevated above the level of your heart, a warm compress, Tylenol can all be helpful. You may find that using some of the tramadol that you have at night may help you sleep a bit better. I would expect 24 hours for the antibiotics truly to begin making a difference in the redness. If you are getting worse by Tuesday you do need to be seen and re-evaluated Prescriptions: New doxycycline hyclate 100 mg capsule 100 mg PO BID Qty: 14 0RF No Action losartan 50 MG tablet 50 mg PO BID Qty: 0 pravastatin 40 MG tablet 40 mg PO QPM Qty: 0 omeprazole 20 MG capsule,delayed release(DR/EC) 20 mg PO EVERY OTHER DAY Qty: 0 calcium citrate [Calcitrate] 200 mg (950 mg) tablet 400 mg PO DAILY Qty: 0 estradiol [Estrace] 1 mg tablet 1 mg PO .every other Qty: 0 furosemide [Lasix] 20 mg tablet 20 mg PO DAILY Qty: 3 0RF metformin 500 mg tablet 500 mg PO BID carvedilol 12.5 mg tablet 12.5 mg PO BID potassium chloride 10 mEq tablet extended release 10 meq PO DAILY spironolactone 25 mg tablet 25 mg PO DAILY rosuvastatin 40 mg tablet 40 mg PO DAILY Eliquis 5 mg tablet 5 mg PO BID Referrals: Robert Mcfarlane MD [Primary Care Provider, [facility]] Stand Alone Forms: Patient Portal/API
[2025-01-27] MEDS: DOXYCYCLINE HYCLATE 100 MG TABLET PO (20:58)
[2025-01-27 21:02] VITALS: BP 152/72; PULSE 70; RESP 15; O2SAT 99
== END 2025-01-27 21:12 | disposition home or self-care (01) ==
PROVIDERS: Emergency Provider Emergency Medicine; Family Provider Family Medicine; PCP Family Medicine
DX: L03.114 Cellulitis of left upper limb (principal)
CPT/HCPCS: 99283

== ENCOUNTER → 2025-01-31 15:09 | Outpatient (CLI) | payer OTHER, SELFPAY | LOC: WC 15:10 | PROVIDERS: Family Provider Family Medicine; PCP Family Medicine; Referring Provider Family Medicine; Visit Provider Surgery | DX: T81.89XA Other complications of procedures, not elsewhere classified, initial encounter (principal); S81.802A Unspecified open wound, left lower leg, initial encounter; E11.628 Type 2 diabetes mellitus with other skin complications; I73.9 Peripheral vascular disease, unspecified; I10 Essential (primary) hypertension; R60.0 Localized edema; Z79.01 Long term (current) use of anticoagulants; Z85.828 Personal history of other malignant neoplasm of skin | CPT/HCPCS: 11042 ==

== ENCOUNTER → 2025-02-05 15:05 | Outpatient (CLI) | payer OTHER, SELFPAY | LOC: WC 15:07 | PROVIDERS: Family Provider Family Medicine; PCP Family Medicine; Referring Provider Family Medicine; Visit Provider Surgery | DX: T81.89XA Other complications of procedures, not elsewhere classified, initial encounter (principal); S81.802A Unspecified open wound, left lower leg, initial encounter; E11.628 Type 2 diabetes mellitus with other skin complications; I50.9 Heart failure, unspecified; I10 Essential (primary) hypertension; I48.91 Unspecified atrial fibrillation; I73.9 Peripheral vascular disease, unspecified; Z79.01 Long term (current) use of anticoagulants; Z85.828 Personal history of other malignant neoplasm of skin | CPT/HCPCS: 99212; 99213 ==

== ENCOUNTER 2025-04-02 15:50 | Inpatient (IN) | payer OTHER, SELFPAY ==
[2025-04-02] VITALS (8 sets, daily range): BP systolic 163–188; BP diastolic 78–110; PULSE 66–89; RESP 16–18; TEMP 36.1–36.9; O2SAT 95–99; BMI 22.6; BMI 24.4
--- NOTE | 2025-04-02 16:26 | ED_ITS ---
HPI - Abdominal Pain <Gerry Garza DO - Last Filed: 04/02/25 17:19> General Chief Complaint: Abdominal Pain Stated Complaint: abd pain since am,nausea Time Seen by Provider: 04/02/25 16:26 Source: patient Mode of arrival: Family Vehicle History of Present Illness HPI narrative: Patient is a 84-year-old female with a history of hyperlipidemia, hypertension, diabetes, AFib on Eliquis, comes into the ED from home for evaluation of abdominal pain, states it started this morning after passing a normal bowel movement. States it is around her umbilicus nonradiating nothing making it better or worse. States that she has also been having lots of gas and belching. States that she does have a history of bowel obstruction and is therefore worried about her symptoms so came into the ED for further evaluation treatment. She denies any other symptoms such as headache visual disturbances chest pain shortness breath fever chills vomiting or any other GI/ symptoms at this time Related Data Home Medications ?Medication ?Instructions ?Recorded ?Confirmed calcium citrate (Calcitrate) 400 mg PO DAILY ##0 06/1804/02/25 estradiol 1 mg tablet (Estrace) 1 mg PO .every other # #0 06/18/17 04/02/25 losartan 50 mg tablet 50 mg PO BID ##0 06/18/17 omeprazole 20 mg capsule,delayed 20 mg PO EVERY OTHER DAY ##0 06/18/17 04/02/25 release pravastatin 40 mg tablet 40 mg PO QPM ##0 06/18/17 apixaban 5 mg tablet (Eliquis) 5 mg PO BID 01/27/25 carvedilol 12.5 mg tablet 12.5 mg PO BID 01/27/2503/12 metformin 500 mg tablet 500 mg PO BID 01/27/2504/02 potassium chloride 10 mEq 10 meq PO DAILY 01/27/25 tablet,extended release rosuvastatin 40 mg tablet 40 mg PO DAILY 01/27/2503/12 spironolactone 25 mg tablet 25 mg PO DAILY 01/27/25 cholecalciferol (vitamin D3) 50 2,000 unit PO BID 03/1204/02/25 mcg (2,000 unit) tablet (D3 DOTS) levothyroxine 75 mcg tablet 75 mcg PO DAILY 04/02/25 0 04/02/25 multivitamin (Daily Multi-Vitamin 1 tab PO DAILY 04/0204/02/25 tablet) Previous Rx's ?Medication ?Instructions ?Recorded furosemide 20 mg tablet (Lasix) 20 mg PO DAILY #3 tabs 07/16/21 Allergies Allergy/AdvReac Type Severity Reaction Status Date / Time codeine (CODEINE) Allergy Intermediate NAUSEA Verified 04/02/25 16:20 Sulfa (Sulfonamide Allergy Intermediate broke out Verified 04/02/25 16:20 Antibiotics) (SULFA in a rash (SULFONAMIDE ANTIBIOTICS)) Review of Systems <Gerry Garza DO - Last Filed: 04/02/25 17:19> Review of Systems Narrative: General: Denies fever, chills, weight loss HEENT: Denies headache, eye drainage, eye irritation, head trauma, sore throat, voice change Cardiovascular: Denies any chest pain, palpitations, tachycardia Respiratory: Denies any shortness of breath, cough, wheeze, stridor GI/: Positive abdominal pain, nausea, denies vomiting, diarrhea, bright red blood per rectum, melanotic stools, urinary frequency, urinary retention, dysuria, hematuria MSK: Denies any joint pain, muscle pains, swelling Skin: Denies any rashes, lesions, discoloration Neuro: Denies any headache, lightheadedness, dizziness, fainting, weakness Psych: Denies SI/HI Patient History <Gerry Garza DO - Last Filed: 04/02/25 17:19> Medical History (Updated 04/02/25 @ 20:49 by Verito Rosales RN) Atrial fibrillation Social History household members: spouse Smoking Status: Never smoker alcohol intake: current alcohol intake frequency: a few times a week Exam <Gerry Garza DO - Last Filed: 04/02/25 17:19> Narrative Exam Narrative: General: Cooperative, well-developed, not in acute distress HEENT: Normocephalic, atraumatic, PERRLA, normal sclera, eyelids normal Neck: Active full range of motion, atraumatic Chest: Normal to inspection, negative crepitus, no overlying erythema ecchymosis Respiratory: Normal respiratory effort, not in acute respiratory distress, clear to auscultation bilaterally negative cough, wheeze, tachypnea, rhonchi, rales Cardiology: Regular rate rhythm negative gallop, murmur, rubs GI/: No tenderness to palpation, soft, non rigid, normal to inspection, exam deferred MSK: Full active range of motion in all 4 extremities, atraumatic, no tenderness to palpation of any bony prominences Skin: No rashes or lesions noted Neuro: Alert awake oriented x3, moves all 4 extremities spontaneously, cranial nerves intact, able to answer all questions appropriately follows commands appropriately Psych: Cooperative, negative suicidal or homicidal ideations Initial Vital Signs Initial Vital Signs: Vital Signs Temperature 98.5 F 04/02/25 16:11 Pulse Rate 66 04/02/25 16:11 Respiratory Rate 16 04/02/25 16:11 Blood Pressure 164/82 H 04/02/25 16:11 Pulse Oximetry 99 04/02/25 16:11 Oxygen Delivery Method Room Air 04/02/25 16:11 <Agus Thomas MD - Last Filed: 04/03/25 00:46> Initial Vital Signs Initial Vital Signs: Vital Signs Temperature 98.5 F 04/02/25 16:11 Pulse Rate 66 04/02/25 16:11 Respiratory Rate 16 04/02/25 16:11 Blood Pressure 164/82 H 04/02/25 16:11 Pulse Oximetry 99 04/02/25 16:11 Oxygen Delivery Method Room Air 04/02/25 16:11 Course <Gerry Garza DO - Last Filed: 04/02/25 17:19> Orders Ordered: ED Orders 04/02/25 16:15 Urinalysis and Microscopic Stat 04/02/25 16:27 EKG-12 Lead Stat 04/02/25 16:50 Complete Blood Count AUTO DIFF Stat Comprehensive Metabolic Panel Stat Lactate (Lactic Acid) Stat Lipase Stat MAG [Magnesium] Stat 04/02/25 17:35 CT abdomen pelvis w con Stat Acetaminophen (Acetaminophen 325 Mg Tablet) 650 mg PO Q6H PRN PRN Reason: Fever/Mild Pain (1-3) Atorvastatin Calcium (Atorvastatin 20 Mg Tablet) 80 mg PO BEDTIME JOSEFA Benzocaine (Benzocaine/Menthol 1 Jorge Pkt) 1 each PO Q1H PRN PRN Reason: Sore Throat Carvedilol (Carvedilol 12.5 Mg Tablet) 12.5 mg PO BID [facility] Hydromorphone HCl (Hydromorphone Hcl 0.5 Mg/0.5 Ml Syringe) 1 mg IV Q2H PRN PRN Reason: Pain, Severe (7-10) Sodium Chloride (Normal Saline 0.9%) 1,000 mls @ 100 mls/hr IV CONT [facility] Last Admin: 04/03/25 00:26 Dose: 100 mls/hr Documented By: NEGRO Heparin Sodium/Dextrose (Heparin Drip) 25,000 unit in 500 mls @ 14.37 mls/hr IV CONT [facility]; Protocol Last Admin: 04/03/25 00:08 Dose: 12 units/kg/hr, 14.37 mls/hr Documented By: NEGRO Co-signed By: KRISTIAN Dextrose (D10w) 100 mls @ 999 mls/hr IV PRN PRN PRN Reason: Hypoglycemia Lactated Ringer's (Lactated Ringers) 1,000 mls @ 150 mls/hr IV CONT [facility] Insulin Human Lispro (Insulin Lispro 100 Unit/Ml 3ml Vial) 0 unit SUBCUT ACHS [facility]; Protocol Morphine Sulfate (Morphine 4 Mg/Ml Inj) 3 mg IV Q2HR PRN PRN Reason: Pain, Severe (7-10) Naloxone HCl (Naloxone 0.4 Mg/Ml Vial) 0.2 mg IV Q2MIN PRN PRN Reason: Opiate Reversal Ondansetron HCl (Ondansetron 4 Mg Odt) 4 mg PO NOW PRN PRN Reason: Nausea And Vomiting Ondansetron HCl (Ondansetron 4 Mg/2 Ml Inj) 4 mg IV Q8HR PRN PRN Reason: Nausea And Vomiting Ondansetron HCl (Ondansetron 4 Mg/2 Ml Inj) 4 mg IV Q8HR PRN PRN Reason: Nausea And Vomiting Discontinued Medications Bupivacaine HCl/Epinephrine Bitart (Bupivacaine 0.25% W/ Epi (Pf) 30 Ml Vial) 30 ml INJ NOW ONE Stop: 04/02/25 21:11 Last Admin: 04/02/25 21:11 Dose: 30 ml Documented By: DESTINY Dexamethasone (Dexamethasone 10 Mg/Ml Vial) 8 mg IV NOW PRN PRN Reason: Nausea And Vomiting Fentanyl (Fentanyl 100 Mcg/2 Ml Inj) 0 mcg IV Q5M PRN PRN Reason: Pain, Moderate (4-6) Heparin Sodium (Porcine) (Heparin 5,000 Unit/Ml Vial) 5,000 unit SUBCUT BID [facility] Heparin Sodium (Porcine) (Heparin 5,000 Unit/Ml Vial) 3,500 unit 60 unit/kg (3500 unit) IV NOW ONE Stop: 04/02/25 22:12 Last Admin: 04/03/25 00:10 Dose: 3,500 unit Documented By: SH Hydromorphone HCl (Hydromorphone 1 Mg/Ml Syringe) 0 mg IV Q5MIN PRN PRN Reason: Pain, Mild (1-3) Hydromorphone HCl (Hydromorphone 1 Mg/Ml Syringe) 0 mg IV Q5MIN PRN PRN Reason: Pain, Moderate (4-6) Sodium Chloride (Normal Saline 0.9%) 500 mls @ 1,000 mls/hr IV BOLUS ONE Stop: 04/02/25 19:16 Last Admin: 04/02/25 19:30 Dose: 1,000 mls/hr Documented By: BILLY Prothrombin Complex Concent ( Human) 2,000 unit/Miscellaneous 80 mls @ 431.093 mls/hr IV NOW ONE Stop: 04/02/25 19:41 Last Admin: 04/02/25 19:30 Dose: 431.093 mls/hr Documented By: ARIADNE Cefazolin Sodium/Dextrose (Ancef) 100 mls @ 200 mls/hr IV NOW ONE Stop: 04/02/25 21:41 Last Admin: 04/02/25 20:58 Dose: 200 mls/hr Documented By: RUBY Morphine Sulfate (Morphine 4 Mg/Ml Inj) 4 mg IV NOW ONE Stop: 04/02/25 18:48 Last Admin: 04/02/25 19:15 Dose: 4 mg Documented By: BILLY Naloxone HCl (Naloxone 0.4 Mg/Ml Vial) 0.2 mg IV Q2MIN PRN PRN Reason: Opiate Reversal Non-Formulary Medication (Rosuvastatin) 40 mg PO DAILY [facility] Ondansetron HCl (Ondansetron 4 Mg/2 Ml Inj) 4 mg IV NOW PRN PRN Reason: Nausea And Vomiting Ondansetron HCl (Ondansetron 4 Mg/2 Ml Inj) 4 mg IV NOW ONE Stop: 04/02/25 18:48 Last Admin: 04/02/25 19:16 Dose: 4 mg Documented By: BILLY Ondansetron HCl (Ondansetron 4 Mg/2 Ml Inj) 4 mg IV NOW PRN PRN Reason: Nausea And Vomiting Oxycodone HCl (Oxycodone Ir 5 Mg Tablet) 5 mg PO PACUNOW PRN PRN Reason: Mild or moderate pain Pravastatin Sodium (Pravastatin 20 Mg Tablet) 40 mg PO QPM [facility] Vital Signs Vital signs: Vital Signs - 8 hr 04/02/25 16:11 Temperature 98.5 F Pulse Rate 66 Respiratory Rate 16 Blood Pressure 164/82 H Pulse Oximetry 99 Oxygen Delivery Method Room Air <Agus Thomas MD - Last Filed: 04/03/25 00:46> Course Course Narrative: 18:00 Patient care signed out to me at the change of shift by Dr. Garza with urinalysis and CT scan pending. This is an 84-year-old female patient with a history of dyslipidemia, hypertension, type 2 diabetes an appendectomy with previous small bowel obstruction who comes in with worsening. No medical pain since this morning. She had a bowel movement earlier this morning but none since then. She has had decreased appetite but no vomiting or fever. Pain persists. To this point lab work has revealed a CBC, CMP and urinalysis essentially unremarkable. 18:30 CT scan returns revealing small bowel obstruction in the right lower quadrant with evidence of mesenteric edema and possible ischemia. 18:35 I discussed the patient's care and CT scan findings with Dr. Howell, general surgery who agrees to come in and evaluate the patient for possible surgery. 19:00 Dr. Howell agrees to consult on the patient but would like the patient admitted to the hospitalist service 19:30 I discussed the patient with Dr. Peñaloza, hospitalist who agrees to admit her with Dr. Howell consulting for small bowel obstruction with ischemia. Orders Ordered: ED Orders 04/02/25 16:15 Urinalysis and Microscopic Stat 04/02/25 16:27 EKG-12 Lead Stat 04/02/25 16:50 Complete Blood Count AUTO DIFF Stat Comprehensive Metabolic Panel Stat Lactate (Lactic Acid) Stat Lipase Stat MAG [Magnesium] Stat 04/02/25 17:35 CT abdomen pelvis w con Stat Acetaminophen (Acetaminophen 325 Mg Tablet) 650 mg PO Q6H PRN PRN Reason: Fever/Mild Pain (1-3) Atorvastatin Calcium (Atorvastatin 20 Mg Tablet) 80 mg PO BEDTIME [facility] Benzocaine (Benzocaine/Menthol 1 Jorge Pkt) 1 each PO Q1H PRN PRN Reason: Sore Throat Carvedilol (Carvedilol 12.5 Mg Tablet) 12.5 mg PO BID [facility] Hydromorphone HCl (Hydromorphone Hcl 0.5 Mg/0.5 Ml Syringe) 1 mg IV Q2H PRN PRN Reason: Pain, Severe (7-10) Sodium Chloride (Normal Saline 0.9%) 1,000 mls @ 100 mls/hr IV CONT [facility] Last Admin: 04/03/25 00:26 Dose: 100 mls/hr Documented By: NEGRO Heparin Sodium/Dextrose (Heparin Drip) 25,000 unit in 500 mls @ 14.37 mls/hr IV CONT [facility]; Protocol Last Admin: 04/03/25 00:08 Dose: 12 units/kg/hr, 14.37 mls/hr Documented By: NEGRO Co-signed By: KRISTIAN Dextrose (D10w) 100 mls @ 999 mls/hr IV PRN PRN PRN Reason: Hypoglycemia Lactated Ringer's (Lactated Ringers) 1,000 mls @ 150 mls/hr IV CONT [facility] Insulin Human Lispro (Insulin Lispro 100 Unit/Ml 3ml Vial) 0 unit SUBCUT ACHS [facility]; Protocol Morphine Sulfate (Morphine 4 Mg/Ml Inj) 3 mg IV Q2HR PRN PRN Reason: Pain, Severe (7-10) Naloxone HCl (Naloxone 0.4 Mg/Ml Vial) 0.2 mg IV Q2MIN PRN PRN Reason: Opiate Reversal Ondansetron HCl (Ondansetron 4 Mg Odt) 4 mg PO NOW PRN PRN Reason: Nausea And Vomiting Ondansetron HCl (Ondansetron 4 Mg/2 Ml Inj) 4 mg IV Q8HR PRN PRN Reason: Nausea And Vomiting Ondansetron HCl (Ondansetron 4 Mg/2 Ml Inj) 4 mg IV Q8HR PRN PRN Reason: Nausea And Vomiting Discontinued Medications Bupivacaine HCl/Epinephrine Bitart (Bupivacaine 0.25% W/ Epi (Pf) 30 Ml Vial) 30 ml INJ NOW ONE Stop: 04/02/25 21:11 Last Admin: 04/02/25 21:11 Dose: 30 ml Documented By: DESTINY Dexamethasone (Dexamethasone 10 Mg/Ml Vial) 8 mg IV NOW PRN PRN Reason: Nausea And Vomiting Fentanyl (Fentanyl 100 Mcg/2 Ml Inj) 0 mcg IV Q5M PRN PRN Reason: Pain, Moderate (4-6) Heparin Sodium (Porcine) (Heparin 5,000 Unit/Ml Vial) 5,000 unit SUBCUT BID [facility] Heparin Sodium (Porcine) (Heparin 5,000 Unit/Ml Vial) 3,500 unit 60 unit/kg (3500 unit) IV NOW ONE Stop: 04/02/25 22:12 Last Admin: 04/03/25 00:10 Dose: 3,500 unit Documented By: SH Hydromorphone HCl (Hydromorphone 1 Mg/Ml Syringe) 0 mg IV Q5MIN PRN PRN Reason: Pain, Mild (1-3) Hydromorphone HCl (Hydromorphone 1 Mg/Ml Syringe) 0 mg IV Q5MIN PRN PRN Reason: Pain, Moderate (4-6) Sodium Chloride (Normal Saline 0.9%) 500 mls @ 1,000 mls/hr IV BOLUS ONE Stop: 04/02/25 19:16 Last Admin: 04/02/25 19:30 Dose: 1,000 mls/hr Documented By: BILLY Prothrombin Complex Concent ( Human) 2,000 unit/Miscellaneous 80 mls @ 431.093 mls/hr IV NOW ONE Stop: 04/02/25 19:41 Last Admin: 04/02/25 19:30 Dose: 431.093 mls/hr Documented By: ARIADNE Cefazolin Sodium/Dextrose (Ancef) 100 mls @ 200 mls/hr IV NOW ONE Stop: 04/02/25 21:41 Last Admin: 04/02/25 20:58 Dose: 200 mls/hr Documented By: ZIla Morphine Sulfate (Morphine 4 Mg/Ml Inj) 4 mg IV NOW ONE Stop: 04/02/25 18:48 Last Admin: 04/02/25 19:15 Dose: 4 mg Documented By: BILLY Naloxone HCl (Naloxone 0.4 Mg/Ml Vial) 0.2 mg IV Q2MIN PRN PRN Reason: Opiate Reversal Non-Formulary Medication (Rosuvastatin) 40 mg PO DAILY [facility] Ondansetron HCl (Ondansetron 4 Mg/2 Ml Inj) 4 mg IV NOW PRN PRN Reason: Nausea And Vomiting Ondansetron HCl (Ondansetron 4 Mg/2 Ml Inj) 4 mg IV NOW ONE Stop: 04/02/25 18:48 Last Admin: 04/02/25 19:16 Dose: 4 mg Documented By: ES Ondansetron HCl (Ondansetron 4 Mg/2 Ml Inj) 4 mg IV NOW PRN PRN Reason: Nausea And Vomiting Oxycodone HCl (Oxycodone Ir 5 Mg Tablet) 5 mg PO PACUNOW PRN PRN Reason: Mild or moderate pain Pravastatin Sodium (Pravastatin 20 Mg Tablet) 40 mg PO QPM [facility] Vital Signs Vital signs: Vital Signs - 8 hr 04/02/25 16:11 Temperature 98.5 F Pulse Rate 66 Respiratory Rate 16 Blood Pressure 164/82 H Pulse Oximetry 99 Oxygen Delivery Method Room Air MDM - Abdominal Pain <Gerry Garza DO - Last Filed: 04/02/25 17:19> Lab Data 04/02/25 23:11 04/02/25 23:11 Labs: Lab Results 04/02/25 04/02/25 Range/Units 16:15 16:50 WBC 9.3 (4.5-11.0) X10^3/uL RBC 4.56 (4.0-5.2) X10^6/uL Hgb 14.0 (12.0-16.0) g/dL Hct 40.4 (36-46) % MCV 88.6 (80-100) fL MCH 30.8 (26-34) PG MCHC 34.7 (30-36) % RDW 14.2 (11.6-14.8) % Plt Count 302 (150-400) X10^3/uL Neut % (Auto) 80.4 H (50-75) % Lymph % (Auto) 11.4 L (25-40) % [place] % (Auto) 6.9 (3-14) % Eos % (Auto) 0.9 L (2-4) % Baso % (Auto) 0.4 (0-2) % Neut # (Auto) 7500 H (5615-5367) /uL Lymph # (Auto) 1100 (0583-6522) /uL [place] # (Auto) 600 (0-900) /uL Eos # (Auto) 100 (0-450) /uL Baso # (Auto) 0 (0-100) /uL Sodium 137 (137-145) mmol/L Potassium 3.8 (3.4-5.1) mmol/L Chloride 98 (98-107) mmol/L Carbon Dioxide 29 (22-32) mmol/L BUN 22 H (7-17) mg/dL Creatinine 0.97 (0.52-1.04) mg/dL Estimated GFR 58 L (>60) mL/min BUN/Creatinine Ratio 22.7 H (6-22) Glucose 117 H (70-99) mg/dL Hemoglobin A1c 6.5 H (4.0-6.0) % Lactate 0.7 (0.7-2.1) mmol/L Calcium 9.9 (8.4-10.2) mg/dL Magnesium 2.0 (1.6-2.3) mg/dL Total Bilirubin 1.0 (0.2-1.3) mg/dL AST 36 (14-36) IU/L ALT 30 (<35) IU/L Alkaline Phosphatase 67 (38-126) U/L Total Protein 8.3 H (6.3-8.2) g/dL Albumin 4.9 (3.5-5.0) g/dL Globulin 3.4 (1.7-4.1) g/dL Albumin/Globulin Ratio 1.4 (1.0-2.8) Lipase 119 (23-300) U/L Urine Color Yellow Urine Appearance Clear Urine pH 6.5 (4.5-8.0) Ur Specific [place] <=1.005 (1.000-1.035) Urine Protein Negative (Negative) Urine Glucose (UA) Negative (Negative) g/dL Urine Ketones Negative (NEGATIVE) Urine Occult Blood Negative (Negative) Urine Nitrate Negative (Negative) Urine Bilirubin Negative (NEGATIVE) Urine Urobilinogen 0.2 (0.2) E.U./dL Ur Leukocyte Esterase Negative (NEGATIVE) Urine RBC 0-1/hpf (0-5/HPF) Urine WBC 0-1/hpf (0-5/HPF) Ur Squamous Epith Cells 1-5 /hpf (0-5/HPF) Ur Transition Epith Cell 0-1/hpf (0-5/HPF) Urine Bacteria None seen (None) Ur Culture Indicated? Cult not indicated Vol Urine Centrifuged 10ml (spun) ECG Data Interpretation: EKG interpreted ED physician atrial fibrillation 70 beats per minute QTC 412 normal axis deviation nonspecific ST changes no STEMI MDM Narrative Medical decision making narrative: Patient is a 84-year-old female with a history of hyperlipidemia, hypertension, diabetes, AFib on Eliquis comes into the ED from home for evaluation of abdominal pain, states it started this morning after passing a normal bowel movement. States it is around her umbilicus nonradiating nothing making it better or worse. States that she has also been having lots of gas and belching. States that she does have a history of bowel obstruction and is therefore worried about her symptoms so came into the ED for further evaluation treatment. On exam patient slightly distended abdomen non peritoneal but mildly tender with palpation. EKG is nonischemic. 1800: Patient is signed out to Dr. Thomas, final disposition pending imaging results, urinalysis and re-evaluation <Agus Thomas MD - Last Filed: 04/03/25 00:46> Lab Data Labs: Lab Results 04/02/25 04/02/25 Range/Units 16:15 16:50 WBC 9.3 (4.5-11.0) X10^3/uL RBC 4.56 (4.0-5.2) X10^6/uL Hgb 14.0 (12.0-16.0) g/dL Hct 40.4 (36-46) % MCV 88.6 (80-100) fL MCH 30.8 (26-34) PG MCHC 34.7 (30-36) % RDW 14.2 (11.6-14.8) % Plt Count 302 (150-400) X10^3/uL Neut % (Auto) 80.4 H (50-75) % Lymph % (Auto) 11.4 L (25-40) % [place] % (Auto) 6.9 (3-14) % Eos % (Auto) 0.9 L (2-4) % Baso % (Auto) 0.4 (0-2) % Neut # (Auto) 7500 H (7737-8742) /uL Lymph # (Auto) 1100 (8898-2476) /uL [place] # (Auto) 600 (0-900) /uL Eos # (Auto) 100 (0-450) /uL Baso # (Auto) 0 (0-100) /uL Sodium 137 (137-145) mmol/L Potassium 3.8 (3.4-5.1) mmol/L Chloride 98 (98-107) mmol/L Carbon Dioxide 29 (22-32) mmol/L BUN 22 H (7-17) mg/dL Creatinine 0.97 (0.52-1.04) mg/dL Estimated GFR 58 L (>60) mL/min BUN/Creatinine Ratio 22.7 H (6-22) Glucose 117 H (70-99) mg/dL Hemoglobin A1c 6.5 H (4.0-6.0) % Lactate 0.7 (0.7-2.1) mmol/L Calcium 9.9 (8.4-10.2) mg/dL Magnesium 2.0 (1.6-2.3) mg/dL Total Bilirubin 1.0 (0.2-1.3) mg/dL AST 36 (14-36) IU/L ALT 30 (<35) IU/L Alkaline Phosphatase 67 (38-126) U/L Total Protein 8.3 H (6.3-8.2) g/dL Albumin 4.9 (3.5-5.0) g/dL Globulin 3.4 (1.7-4.1) g/dL Albumin/Globulin Ratio 1.4 (1.0-2.8) Lipase 119 (23-300) U/L Urine Color Yellow Urine Appearance Clear Urine pH 6.5 (4.5-8.0) Ur Specific [place] <=1.005 (1.000-1.035) Urine Protein Negative (Negative) Urine Glucose (UA) Negative (Negative) g/dL Urine Ketones Negative (NEGATIVE) Urine Occult Blood Negative (Negative) Urine Nitrate Negative (Negative) Urine Bilirubin Negative (NEGATIVE) Urine Urobilinogen 0.2 (0.2) E.U./dL Ur Leukocyte Esterase Negative (NEGATIVE) Urine RBC 0-1/hpf (0-5/HPF) Urine WBC 0-1/hpf (0-5/HPF) Ur Squamous Epith Cells 1-5 /hpf (0-5/HPF) Ur Transition Epith Cell 0-1/hpf (0-5/HPF) Urine Bacteria None seen (None) Ur Culture Indicated? Cult not indicated Vol Urine Centrifuged 10ml (spun) Imaging Data CT scan - abdomen/pelvis: Radiologist's Impression: IMPRESSION: 1. Findings most consistent with closed loop small bowel obstruction in the right lower abdomen and pelvis. This may be due to adhesions, mesenteric twist or internal hernia. 2. Extensive mesenteric edema and lack of small bowel enhancement, highly suspicious for small bowel ischemia. Surgical consultation suggested. 3. Probable left breast mass, can be further assessed with mammogram and ultrasound electively. MDM Narrative Medical decision making narrative: Patient is a 84-year-old female with a history of hyperlipidemia, hypertension, diabetes, AFib on Eliquis comes into the ED from home for evaluation of abdominal pain, states it started this morning after passing a normal bowel movement. States it is around her umbilicus nonradiating nothing making it better or worse. States that she has also been having lots of gas and belching. States that she does have a history of bowel obstruction and is therefore worried about her symptoms so came into the ED for further evaluation treatment. On exam patient slightly distended abdomen non peritoneal but mildly tender with palpation. EKG is nonischemic. 1800: Patient is signed out to Dr. Thomas, final disposition pending imaging results, urinalysis and re-evaluation Patient's CT scan revealed small bowel obstruction with possible ischemia. General surgery was consulted along with inpatient hospitalist. Patient was taken to the OR and admitted to hospitalist with general surgery consultation postsurgical Discharge Plan Departure Patient Disposition: Admitted As Inpatient Clinical Impression: Small bowel obstruction Admit Date/Time: 04/02/25 19:25 Admit Provider: Yung Howell
--- NOTE | 2025-04-02 17:06 | EKG_ITS ---
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
[2025-04-02 17:12] LABS: Add Manual Diff / Slide Review NO; Hematocrit 40.4 % (36-46); Hemoglobin 14.0 g/dL (12.0-16.0); Lymphocytes Absolute Auto 1100 /uL (1100-4500); Mean Corpuscular HGB Conc 34.7 % (30-36); Mean Corpuscular Hemoglobin 30.8 PG (26-34); Mean Corpuscular Volume 88.6 fL (80-100); Platelet Count 302 X10^3/uL (150-400)
[2025-04-02 17:24] LABS: Lactate (Lactic Acid) 0.7 mmol/L (0.7-2.1)
[2025-04-02 17:25] LABS: Alanine Aminotransferase 30 IU/L (<35); Albumin 4.9 g/dL (3.5-5.0); Albumin Globulin Ratio 1.4 (1.0-2.8); Alkaline Phosphatase 67 U/L (38-126); Blood Urea Nitrogen 22 mg/dL (7-17); Calcium 9.9 mg/dL (8.4-10.2); Carbon Dioxide 29 mmol/L (22-32); Chloride 98 mmol/L (98-107); Estimated Glomerular Filt Rate 58 mL/min (>60); Globulin 3.4 g/dL (1.7-4.1); Glucose 117 mg/dL (70-99); HEMOLYSIS < 15 (0-50); Lipase 119 U/L (23-300); Magnesium 2.0 mg/dL (1.6-2.3); Potassium 3.8 mmol/L (3.4-5.1); Sodium 137 mmol/L (137-145); Total Protein 8.3 g/dL (6.3-8.2)
[2025-04-02 17:28] LABS: Appearance Urine UA CLEAR; Bilirubin Urine UA NEGATIVE (NEGATIVE); Color Urine UA YELLOW; Glucose Urine UA NEGATIVE (Negative); Ketones Urine UA NEGATIVE (NEGATIVE); Leukocyte Esterase Urine UA NEGATIVE (NEGATIVE); Nitrite Urine UA NEGATIVE (Negative); Occult Blood Urine UA NEGATIVE (Negative); Protein Urine UA NEGATIVE (Negative); Specific Gravity Urine UA <=1.005 (1.000-1.035); Urobilinogen Urine UA 0.2 E.U./dL (0.2)
--- NOTE | 2025-04-02 17:35 | DI.CT.S_ITS ---
PROCEDURE: CT ABDOMEN PELVIS W CON INDICATIONS: Abdominal pain TECHNIQUE: After the administration of intravenous contrast, axial sections acquired from the lung bases to the pubic symphysis. Coronal and sagittal reformats were performed. For radiation dose reduction, the following was used: automated exposure control, adjustment of mA and/or kV according to patient size. COMPARISON: None. FINDINGS: Image quality: Diagnostic. Lower Chest: There is a completely visualized peripheral enhancing hypodense lesion in the left breast laterally measuring 1.8 cm, also with asymmetrical enhancing solid soft tissue more inferiorly. Cardiomegaly. ABDOMEN: Liver: No solid mass. Gallbladder: No radiopaque gallstones or wall thickening. Biliary ducts: No biliary dilation. Pancreas: No ductal dilation. Spleen: A 1.1 cm hypoenhancing lesion posteriorly, statistically most likely cyst or hemangioma. Adrenal Glands: No adrenal nodules. Kidneys and Ureters: No hydronephrosis. No solid mass. No complex renal cystic lesion which requires follow up. Stomach and Bowel: There is moderate dilatation of a cluster of small bowel loops in the right mid to lower abdomen and pelvis. There is significant mesenteric twisting with at least 2 transition point seen in this region. There is extensive mesenteric edema. There is lack of enhancement of several small bowel loops in this region. Significant amount of gas and stool seen in the colon. Peritoneum: Small amount of ascites. No free air. Ventral Wall: No significant ventral hernia. Abdominal Nodes: No retroperitoneal or mesenteric adenopathy by size criteria. Vessels: Aorta and inferior vena cava are normal in size. PELVIS: Pelvic Organs: Unremarkable. Bladder: No bladder wall thickening, accounting for underdistention. Pelvic Nodes: No enlarged lymph nodes. Miscellaneous: No inguinal hernias are seen. Bones: No aggressive osseous abnormality. IMPRESSION: 1. Findings most consistent with closed loop small bowel obstruction in the right lower abdomen and pelvis. This may be due to adhesions, mesenteric twist or internal hernia. 2. Extensive mesenteric edema and lack of small bowel enhancement, highly suspicious for small bowel ischemia. Surgical consultation suggested. 3. Probable left breast mass, can be further assessed with mammogram and ultrasound electively. Dictated by: Hector Miranda M.D. on 04/02/2025 at 17:45 Approved by: Hector Miranda M.D. on 04/02/2025 at 17:56
[2025-04-02 18:11] LABS: pH Urine UA 6.5 (4.5-8.0)
[2025-04-02 18:13] LABS: Culture Indicated Urine Cult Not Indicated
[2025-04-02] MEDS: MORPHINE 4 MG/ML INJ IV (19:15)
[2025-04-02] MEDS: ONDANSETRON 4 MG/2 ML INJ IV (19:16)
[2025-04-02] MEDS: SODIUM CHLORIDE 0.9% 500 ML 1000 ML IV (19:30)
[2025-04-02] MEDS: PROTHROMBIN CPLX(PCC)4FACT 2,000 UNIT in ISOOSMOTIC VEHICLE 0 ML 431.093 UNIT IV (19:30)
--- NOTE | 2025-04-02 19:47 | DI.RAD.S_ITS ---
PROCEDURE: XR CHEST 1V INDICATIONS: confirm ng tube placement TECHNIQUE: One view of the chest was acquired. COMPARISON: [facility], RADHA, XR CHEST 1V, 12/06/2023, 12:05. [facility], CR, XR CHEST 1V, 04/15/2022, 4:30. FINDINGS: Surgical changes and devices: Gastric tube tip and side port project over the stomach. Surgical clips project over the right breast. Lungs and pleura: Lungs are clear. No pleural effusions or pneumothorax. Mediastinum: Mediastinal contours appear normal. Heart size is enlarged. Bones and chest wall: No suspicious bony lesions. Overlying soft tissues appear unremarkable. IMPRESSION: Gastric tube tip and side port project over the stomach. Dictated by: Joel Roth M.D. on 04/02/2025 at 20:04 Approved by: Joel Roth M.D. on 04/02/2025 at 20:05
--- NOTE | 2025-04-02 19:49 | PM.HP.IH.1 ---
History of Present Illness History of Present Illness Date Patient Seen: 04/02/25 Time Patient Seen: 19:49 Chief complaint: abd pain since am,nausea Narrative: Patient presented to ED with abd pain. CT demonstrates closed loop obstruction with ischemic bowel. Patient had untwisting surgery done at in the past via low midline incision. Patient on Eliquis for afib, plan to reverse with austyn Powers/[facility] pharmacist. Urgent laparotomy tonight for bowel resection. Meds Home Medications and Allergies Home Medications ?Medication ?Instructions ?Recorded ?Confirmed ?Type calcium citrate (Calcitrate) 400 mg PO DAILY ##0 06/18/17 01/27/25 History estradiol 1 mg tablet (Estrace) 1 mg PO .every other ##0 06/18/17 01/27/25 History losartan 50 mg tablet 50 mg PO BID ##0 06/18/17 01/27/25 History omeprazole 20 mg capsule,delayed 20 mg PO EVERY OTHER DAY ##0 06/18/17 01/27/25 History release pravastatin 40 mg tablet 40 mg PO QPM ##0 06/18/17 01/27/25 History furosemide 20 mg tablet (Lasix) 20 mg PO DAILY #3 tabs 07/16/21 01/27/25 Rx apixaban 5 mg tablet (Eliquis) 5 mg PO BID 01/27/25 01/27/25 History carvedilol 12.5 mg tablet 12.5 mg PO BID 01/27/25 01/27/25 History doxycycline hyclate 100 mg capsule 100 mg PO BID #14 caps 01/27/25 Rx metformin 500 mg tablet 500 mg PO BID 01/27/25 01/27/25 History potassium chloride 10 mEq 10 meq PO DAILY 01/27/25 01/27/25 History tablet,extended release rosuvastatin 40 mg tablet 40 mg PO DAILY 01/27/25 01/27/25 History spironolactone 25 mg tablet 25 mg PO DAILY 01/27/25 01/27/25 History Allergies Allergy/AdvReac Type Severity Reaction Status Date / Time codeine (CODEINE) Allergy Intermediate NAUSEA Verified 04/02/25 16:20 Sulfa (Sulfonamide Allergy Intermediate broke out Verified 04/02/25 16:20 Antibiotics) (SULFA in a rash (SULFONAMIDE ANTIBIOTICS)) Exam Vital Signs (past 8 hours): - 04/02/25 16:11 Temperature 98.5 F Pulse Rate 66 Respiratory Rate 16 Blood Pressure 164/82 H Pulse Oximetry 99 Oxygen Delivery Method Room Air Oxygen Delivery Method Room Air Const General: comfortable Orientation: alert and oriented x3 Resp Effort & Inspection: normal respiratory effort and able to speak in complete sentences Cardio Other: afib GI Other: ABD: distended, +tympany, tender to palpation, healed low midline incision Extrem General: no pedal edema and no calf tenderness Objective Labs 04/02/25 16:50 04/02/25 16:50 Labs: Laboratory Results - last 24 hr 04/02/25 04/02/25 16:15 16:50 WBC 9.3 RBC 4.56 Hgb 14.0 Hct 40.4 MCV 88.6 MCH 30.8 MCHC 34.7 RDW 14.2 Plt Count 302 Neut % (Auto) 80.4 H Lymph % (Auto) 11.4 L [place] % (Auto) 6.9 Eos % (Auto) 0.9 L Baso % (Auto) 0.4 Neut # (Auto) 7500 H Lymph # (Auto) 1100 [place] # (Auto) 600 Eos # (Auto) 100 Baso # (Auto) 0 Sodium 137 Potassium 3.8 Chloride 98 Carbon Dioxide 29 BUN 22 H Creatinine 0.97 Estimated GFR 58 L BUN/Creatinine Ratio 22.7 H Glucose 117 H Lactate 0.7 Calcium 9.9 Magnesium 2.0 Total Bilirubin 1.0 AST 36 ALT 30 Alkaline Phosphatase 67 Total Protein 8.3 H Albumin 4.9 Globulin 3.4 Albumin/Globulin Ratio 1.4 Lipase 119 Urine Color Yellow Urine Appearance Clear Urine pH 6.5 Ur Specific [place] <=1.005 Urine Protein Negative Urine Glucose (UA) Negative Urine Ketones Negative Urine Occult Blood Negative Urine Nitrate Negative Urine Bilirubin Negative Urine Urobilinogen 0.2 Ur Leukocyte Esterase Negative Urine RBC 0-1/hpf Urine WBC 0-1/hpf Ur Squamous Epith Cells 1-5 /hpf Ur Transition Epith Cell 0-1/hpf Urine Bacteria None seen Ur Culture Indicated? Cult not indicated Vol Urine Centrifuged 10ml (spun) Assessment & Plan Assessment and plan (1) Small bowel obstruction: Status: Acute Plan SBO with closed loop obstruction, bowel ischemia. Plan reversal of eliquis (last dose at 1300 today) with Kcentra. D/W pharmacy. NGT. Urgent ex lap with bowel resection. The risks, benefits and options regarding the procedure were explained to the patient in detail. Risk discussion included but not limited to: infection, bleeding, bowel resection, complications from anticoagulation, thromobosis. The patient was encouraged to ask questions and they were answered to their satisfaction. The patient understands and is agreeable to proceed. Time-Based Coding :: [TOTAL MINUTES] spent with patient and on the chart (including review of chart, obtaining history, exam, reviewing outside data, placing orders, documenting exam and treatment plan, and counseling patient) on [DATE]. PROFEE Commercial Pest Control Technician Document charge(s): Yes Charge Codes Initial inpatient/observation care: [id number]
--- NOTE | 2025-04-02 20:55 | SUR.OPER ---
Supine on padded OR bed, head on pillow, arms secured on padded arm boards at <90 degrees abduction, bilateral wrists padded with gel, supported, legs uncrossed, safety belt at thigh, tape over blanket over lower legs.
--- NOTE | 2025-04-02 21:01 | PM.HP.1 ---
History of Present Illness History of Present Illness Date Patient Seen: 04/02/25 Time Patient Seen: 21:01 Chief complaint: abd pain since am,nausea Narrative: The pt is a 84 yo with a hx of a-fib on Eliquis, HTN, DM who presents to the ER tonight c/o one day hx of severe abd pain, generalized, constant, sharp. In the ER a CT of the abd was done that showed a loop of bowel concerning for ischemia. Gernal Surgery, Dr. Patel was consulted and took the pt to the OR for exp lab, KCentra given to reverse jered Eliquis, the pt was seen post OP. She states that the pain is not severe presently. She does reports having a exp lab in 2017 due to a kinked bowel, she is also is seeing a GI doc for IBS. [facility] Medical History (Updated 04/02/25 @ 20:49 by Verito Rosales RN) Atrial fibrillation Social History household members: spouse Smoking Status: Never smoker alcohol intake: current Meds Home Medications and Allergies Home Medications ?Medication ?Instructions ?Recorded ?Confirmed ?Type calcium citrate (Calcitrate) 400 mg PO DAILY ##0 06/18/17 04/02/25 History estradiol 1 mg tablet (Estrace) 1 mg PO .every other ##0 06/18/17 04/02/25 History losartan 50 mg tablet 50 mg PO BID ##0 06/18/17 04/02/25 History omeprazole 20 mg capsule,delayed 20 mg PO EVERY OTHER DAY ##0 06/18/17 04/02/25 History release pravastatin 40 mg tablet 40 mg PO QPM ##0 06/18/17 04/02/25 History furosemide 20 mg tablet (Lasix) 20 mg PO DAILY #3 tabs 07/16/21 04/02/25 Rx apixaban 5 mg tablet (Eliquis) 5 mg PO BID 01/27/25 04/02/25 History carvedilol 12.5 mg tablet 12.5 mg PO BID 01/27/25 04/02/25 History metformin 500 mg tablet 500 mg PO BID 01/27/25 04/02/25 History potassium chloride 10 mEq 10 meq PO DAILY 01/27/25 04/02/25 History tablet,extended release rosuvastatin 40 mg tablet 40 mg PO DAILY 01/27/25 04/02/25 History spironolactone 25 mg tablet 25 mg PO DAILY 01/27/25 04/02/25 History cholecalciferol (vitamin D3) 50 2,000 unit PO BID 04/02/25 04/02/25 History mcg (2,000 unit) tablet (D3 DOTS) levothyroxine 75 mcg tablet 75 mcg PO DAILY 04/02/25 04/02/25 History multivitamin (Daily Multi-Vitamin 1 tab PO DAILY 04/02/25 04/02/25 History tablet) Allergies Allergy/AdvReac Type Severity Reaction Status Date / Time codeine (CODEINE) Allergy Intermediate NAUSEA Verified 04/02/25 16:20 Sulfa (Sulfonamide Allergy Intermediate broke out Verified 04/02/25 16:20 Antibiotics) (SULFA in a rash (SULFONAMIDE ANTIBIOTICS)) Exam Vital Signs (past 8 hours): - 04/02/25 16:11 04/02/25 20:04 Temperature 98.5 F 97.9 F Pulse Rate 66 89 Respiratory Rate 16 16 Blood Pressure 164/82 H 188/110 H Pulse Oximetry 99 98 Oxygen Delivery Method Room Air Room Air Oxygen Delivery Method Room Air Objective Labs 04/02/25 23:11 04/02/25 23:11 Labs: Laboratory Results - last 24 hr 04/02/25 04/02/25 16:15 16:50 WBC 9.3 RBC 4.56 Hgb 14.0 Hct 40.4 MCV 88.6 MCH 30.8 MCHC 34.7 RDW 14.2 Plt Count 302 Neut % (Auto) 80.4 H Lymph % (Auto) 11.4 L [place] % (Auto) 6.9 Eos % (Auto) 0.9 L Baso % (Auto) 0.4 Neut # (Auto) 7500 H Lymph # (Auto) 1100 [place] # (Auto) 600 Eos # (Auto) 100 Baso # (Auto) 0 Sodium 137 Potassium 3.8 Chloride 98 Carbon Dioxide 29 BUN 22 H Creatinine 0.97 Estimated GFR 58 L BUN/Creatinine Ratio 22.7 H Glucose 117 H Lactate 0.7 Calcium 9.9 Magnesium 2.0 Total Bilirubin 1.0 AST 36 ALT 30 Alkaline Phosphatase 67 Total Protein 8.3 H Albumin 4.9 Globulin 3.4 Albumin/Globulin Ratio 1.4 Lipase 119 Urine Color Yellow Urine Appearance Clear Urine pH 6.5 Ur Specific [place] <=1.005 Urine Protein Negative Urine Glucose (UA) Negative Urine Ketones Negative Urine Occult Blood Negative Urine Nitrate Negative Urine Bilirubin Negative Urine Urobilinogen 0.2 Ur Leukocyte Esterase Negative Urine RBC 0-1/hpf Urine WBC 0-1/hpf Ur Squamous Epith Cells 1-5 /hpf Ur Transition Epith Cell 0-1/hpf Urine Bacteria None seen Ur Culture Indicated? Cult not indicated Vol Urine Centrifuged 10ml (spun) Assessment & Plan Assessment & Plan narrative: I have discussed with the Er provider the pt's presenting symptoms, labs and imaging and agree with the decision for admission. I have reviewed the CT scan myself showing the area of concern and have reviewed the labs personally. 1. SBO- Taken to the OR tonight by Dr. Patel, will be NPO tonight, on IVFluids, anti-emetics, IV narcotic for pain controll 2. atrial fib- on tele, holding the Eliquis, on heparin drip until this can be restarted, rate controlled 3. Dm- on accuchecks, insulin SS. NPO for now, Time-Based Coding :: [TOTAL MINUTES] spent with patient and on the chart (including review of chart, obtaining history, exam, reviewing outside data, placing orders, documenting exam and treatment plan, and counseling patient) on [DATE].
[2025-04-02] MEDS: BUPivacaine 0.25% W/ EPI (PF) 30 ML VIAL INJ (21:11)
--- NOTE | 2025-04-02 21:44 | PM.OP.1 ---
Operative Date/Time/Diagnoses Date of procedure: 04/02/25 Time of procedure: 21:44 Pre-op diagnosis: Small bowel obstruction, closed loop, ischemic bowel Post-op diagnosis: other (Closed loop obstruction due to adhesive band, bowel resection not required) Procedure & Clinicians Procedure: Exploratory laparotomy, lysis of adhesion Same procedure(s) as scheduled: Yes Indications: 84yo F presented to ED with abd pain. CT demonstrated closed loop obstruction with bowel ischemia Surgeon: Yung Howell Assisted?: No Anesthesia Type: General Operative Notes Findings: Single adhesive band RLQ, bowel recovered once released, no bowel resection needed Closure Type: primary Specimen(s): none sent Applied: none Estimated Blood Loss (mL): 20 Blood products transfused: none Procedure in detail: After informed consent and satisfactory general endotracheal anesthesia, the abdomen was prepped and draped in the usual sterile manner. The patient had a nasogastric tube placed in the emergency room and when we applied suction in the operating room we got an additional 500 cc of gastric contents to minimize the risk for aspiration. The vocal cords had no GI contents upon intubation. She takes Eliquis for atrial fibrillation and this was reversed with Kcentra preoperatively. She received appropriate preoperative antibiotics. Surgical time-out was performed to ensure we had the proper patient, position and procedure with all team members in agreement. The skin incision was made in the midline between the umbilicus and the pubic bone along her prior healed scar. This was continued through the skin and subcutaneous tissues. Cautery was used for hemostasis. The fascia was divided in the midline with cautery. The posterior rectus sheath and peritoneum was grasped and divided between 2 hemostats and the laparotomy incision was extended using fingers to protect the viscera. The small bowel was noted to be dilated. We started running the bowel and this delivered the closed loop that had clearly been involved in a single adhesion and we watched this segment of bowel throughout the procedure and it recovered nicely and did not require resection. There was no evidence for bowel necrosis. The cecum and ascending colon were noted to be incredibly mobile and could be lifted quite high out of the abdominal cavity. The patient had a prior appendectomy. She had a surgery 7 years ago that involved and untwisting according to the family. We ran the small bowel from the ligament of Treitz to the ileocecal valve and there were no additional adhesions or significant pathology noted. Incidental note was made of sigmoid diverticulosis with dry stool in the diverticula. There was no evidence for diverticulitis. The stomach was palpated in the nasogastric tube was noted to be in good position. The liver was palpably normal. The spleen was visibly normal. The transverse colon was quite redundant and folded back on itself in a serpentine manner and this conglomerate was quite adherent to itself but was mobile and unobstructed. There was no indication for bowel resection and no additional adhesions. The small amount of reactive serous fluid was suctioned dry with the pool sucker. At this point we returned the viscera to the abdominal cavity and draped the thin omentum over the anterior surface of the bowel. The bowel decompressed nicely. The posterior rectus sheath and peritoneum were closed using 3-0 Vicryl in a running locking manner. The fascia was closed using 0 looped PDS, one superior, one inferior and they were tied in the middle as individual strands rather than the vlad knot. There were no palpable fascial defects. We injected 30 cc of 0.25% Marcaine with epinephrine into the musculature for postoperative analgesia. The subcutaneous planes were copiously irrigated and suctioned dry. Hemostasis was excellent with cautery. The subcutaneous tissues were closed using 3-0 Vicryl running. The skin incision was closed using 4-0 Monocryl in a subcuticular manner. Dermabond glue was applied as a final dressing. The estimated blood loss was minimal. The instrument sponge and needle counts were all correct x2. The patient tolerated the procedure well and was extubated in the operating room and transported to the recovery area in stable condition. Complications: none Post-operative Condition: stable Disposition: PACU Plan for aftercare: PACU then to [facility]
[2025-04-02 21:52] LABS: Hemoglobin A1C% w Est Avg Glu 6.5 % (4.0-6.0)
[2025-04-02 23:22] LABS: Add Manual Diff / Slide Review NO; Hematocrit 37.7 % (36-46); Hemoglobin 13.0 g/dL (12.0-16.0); Lymphocytes Absolute Auto 700 /uL (1100-4500); Mean Corpuscular HGB Conc 34.4 % (30-36); Mean Corpuscular Hemoglobin 30.4 PG (26-34); Mean Corpuscular Volume 88.3 fL (80-100); Platelet Count 267 X10^3/uL (150-400)
[2025-04-02 23:33] LABS: Blood Urea Nitrogen 20 mg/dL (7-17); Calcium 8.9 mg/dL (8.4-10.2); Carbon Dioxide 27 mmol/L (22-32); Chloride 101 mmol/L (98-107); Estimated Glomerular Filt Rate > 60 mL/min (>60); Glucose 154 mg/dL (70-99); HEMOLYSIS < 15 (0-50); Magnesium 1.8 mg/dL (1.6-2.3); Phosphorous 3.8 mg/dL (2.8-4.1); Potassium 4.2 mmol/L (3.4-5.1); Sodium 134 mmol/L (137-145)
[2025-04-02 23:34] LABS: INR 1.2 (0.9-1.3); Prothrombin Time 13.6 SECONDS (9.4-12.5)
[2025-04-02 23:36] LABS: PTT Partial Thromboplastin Tim 33 SECONDS (25.1-36.5)
[2025-04-03] VITALS (12 sets, daily range): BP systolic 144–169; BP diastolic 78–101; PULSE 73–86; RESP 15–18; TEMP 36.1–37.3; O2SAT 74–99
[2025-04-03] MEDS: HEPARIN DRIP 25,000 UNIT/500 ML IV.SOLN 14.37 UNIT IV (00:08)
[2025-04-03] MEDS: HEPARIN 5,000 UNIT/ML VIAL 3500 UNIT IV (00:10)
[2025-04-03] MEDS: SODIUM CHLORIDE 0.9% 1,000 ML 100 ML IV ×3 (00:26→23:36)
[2025-04-03 06:26] LABS: Add Manual Diff / Slide Review NO; Hematocrit 37.9 % (36-46); Hemoglobin 13.0 g/dL (12.0-16.0); Lymphocytes Absolute Auto 500 /uL (1100-4500); Mean Corpuscular HGB Conc 34.3 % (30-36); Mean Corpuscular Hemoglobin 30.3 PG (26-34); Mean Corpuscular Volume 88.3 fL (80-100); Platelet Count 284 X10^3/uL (150-400)
--- NOTE | 2025-04-03 06:27 | P.PN_ITS ---
Subjective Subjective Date Patient Seen: 04/03/25 Time Patient Seen: 06:27 Interval history: Stable overnight POD#1 ex lap/CONY for adhesive band causing closed loop obstruction, no bowel resection required No n/v NGT in place Pain control adequate No flatus Exam Vital Signs (past 8 hours): - 04/02/25 22:30 04/02/25 23:00 04/03/25 00:00 Temperature 97.0 F L Pulse Rate 72 78 80 Respiratory Rate 18 16 Blood Pressure 163/78 H 164/98 H 169/99 H Pulse Oximetry 98 97 98 Oxygen Delivery Method Oxygen Flow Rate 0 0 04/03/25 00:52 04/03/25 01:00 04/03/25 04:00 Temperature Pulse Rate 77 Respiratory Rate 16 Blood Pressure 144/78 H Pulse Oximetry 94 96 95 Oxygen Delivery Method Room Air Room Air Oxygen Flow Rate 0 04/03/25 05:26 Temperature 97 F L Pulse Rate 86 Respiratory Rate 15 Blood Pressure 157/101 H Pulse Oximetry 96 Oxygen Delivery Method Oxygen Flow Rate 0 Oxygen Delivery Method Room Air Oxygen Flow Rate 0 Const General: comfortable Orientation: alert, awake and oriented x3 Resp Effort & Inspection: normal respiratory effort and able to speak in complete sentences Cardio Rate: regular rate GI Other: ABD: incision CDI, no erythema or drainage, still distended (decreased vs preop), +tympany, tenderness appropriate for postop Extrem General: no pedal edema and no calf tenderness Objective Labs 04/02/25 23:11 04/02/25 23:11 Labs: Laboratory Results - last 24 hr 04/02/25 04/02/25 04/02/25 16:15 16:50 20:54 WBC 9.3 RBC 4.56 Hgb 14.0 Hct 40.4 MCV 88.6 MCH 30.8 MCHC 34.7 RDW 14.2 Plt Count 302 Neut % (Auto) 80.4 H Lymph % (Auto) 11.4 L [place] % (Auto) 6.9 Eos % (Auto) 0.9 L Baso % (Auto) 0.4 Neut # (Auto) 7500 H Lymph # (Auto) 1100 [place] # (Auto) 600 Eos # (Auto) 100 Baso # (Auto) 0 PT INR APTT Sodium 137 Potassium 3.8 Chloride 98 Carbon Dioxide 29 BUN 22 H Creatinine 0.97 Estimated GFR 58 L BUN/Creatinine Ratio 22.7 H Glucose 117 H POC Whole Bld Glucose Hemoglobin A1c 6.5 H Lactate 0.7 Calcium 9.9 Phosphorus Magnesium 2.0 Total Bilirubin 1.0 AST 36 ALT 30 Alkaline Phosphatase 67 Total Protein 8.3 H Albumin 4.9 Globulin 3.4 Albumin/Globulin Ratio 1.4 Lipase 119 Urine Color Yellow Urine Appearance Clear Urine pH 6.5 Ur Specific [place] <=1.005 Urine Protein Negative Urine Glucose (UA) Negative Urine Ketones Negative Urine Occult Blood Negative Urine Nitrate Negative Urine Bilirubin Negative Urine Urobilinogen 0.2 Ur Leukocyte Esterase Negative Urine RBC 0-1/hpf Urine WBC 0-1/hpf Ur Squamous Epith Cells 1-5 /hpf Ur Transition Epith Cell 0-1/hpf Urine Bacteria None seen Ur Culture Indicated? Cult not indicated Vol Urine Centrifuged 10ml (spun) Blood Type A Positive Antibody Screen Negative 04/02/25 04/02/25 23:11 23:41 WBC 12.6 H RBC 4.27 Hgb 13.0 Hct 37.7 MCV 88.3 MCH 30.4 MCHC 34.4 RDW 14.1 Plt Count 267 Neut % (Auto) 90.8 H Lymph % (Auto) 5.3 L [place] % (Auto) 3.1 Eos % (Auto) 0.4 L Baso % (Auto) 0.4 Neut # (Auto) 12722 H Lymph # (Auto) 700 L [place] # (Auto) 400 Eos # (Auto) 100 Baso # (Auto) 0 PT 13.6 H INR 1.2 APTT 33 Sodium 134 L Potassium 4.2 Chloride 101 Carbon Dioxide 27 BUN 20 H Creatinine 0.87 Estimated GFR > 60 BUN/Creatinine Ratio 23.0 H Glucose 154 H POC Whole Bld Glucose 145 H Hemoglobin A1c Lactate Calcium 8.9 Phosphorus 3.8 Magnesium 1.8 Total Bilirubin AST ALT Alkaline Phosphatase Total Protein Albumin Globulin Albumin/Globulin Ratio Lipase Urine Color Urine Appearance Urine pH Ur Specific [place] Urine Protein Urine Glucose (UA) Urine Ketones Urine Occult Blood Urine Nitrate Urine Bilirubin Urine Urobilinogen Ur Leukocyte Esterase Urine RBC Urine WBC Ur Squamous Epith Cells Ur Transition Epith Cell Urine Bacteria Ur Culture Indicated? Vol Urine Centrifuged Blood Type Antibody Screen [facility] Medical History (Updated 04/02/25 @ 20:49 by Verito Rosales RN) Atrial fibrillation Social History household members: spouse Smoking Status: Never smoker alcohol intake: current Assessment & Plan Assessment and plan (1) Small bowel obstruction: Status: Acute Plan POD#1 ex lap/CONY closed loop obstruction, no bowel resection Continue NGT for now, await NG output reduction, bowel activity, less distention Expected postop ileus H/O constipation, hard stool palpable at surgery, plan enemas, may need to clear with oral agents once NG out Nutrition - regular diet tolerated at home until yesterday, check nutrition labs, consider TPN if ileus prolonged Heparin drip per hospitalists for afib IS for pulmonary toilet Time-Based Coding :: [TOTAL MINUTES] spent with patient and on the chart (including review of chart, obtaining history, exam, reviewing outside data, placing orders, documenting exam and treatment plan, and counseling patient) on [DATE]. PROFEE Sales Force Administrator Document charge(s): Yes Charge Codes Subsequent inpatient/observation care: [id number]
[2025-04-03 06:40] LABS: Alanine Aminotransferase 22 IU/L (<35); Albumin 3.8 g/dL (3.5-5.0); Albumin Globulin Ratio 1.4 (1.0-2.8); Alkaline Phosphatase 54 U/L (38-126); Blood Urea Nitrogen 20 mg/dL (7-17); Calcium 8.6 mg/dL (8.4-10.2); Carbon Dioxide 24 mmol/L (22-32); Chloride 102 mmol/L (98-107); Estimated Glomerular Filt Rate > 60 mL/min (>60); Globulin 2.7 g/dL (1.7-4.1); Glucose 185 mg/dL (70-99); HEMOLYSIS < 15 (0-50); Potassium 4.1 mmol/L (3.4-5.1); Sodium 135 mmol/L (137-145); Total Protein 6.5 g/dL (6.3-8.2)
[2025-04-03 07:10] LABS: PTT Partial Thromboplastin Tim 107 SECONDS (25.1-36.5)
--- NOTE | 2025-04-03 08:16 | PM.PN.1 ---
Subjective Subjective Date Patient Seen: 04/03/25 Interval history: The pt is a 84 yo with a hx of a-fib on Eliquis, HTN, DM who presents to the ER tonight c/o one day hx of severe abd pain, generalized, constant, sharp. In the ER a CT of the abd was done that showed a loop of bowel concerning for ischemia. Gernal Surgery, Dr. Patel was consulted and took the pt to the OR for exp lab, KCentra given to reverse the Eliquis, the pt was seen post OP. She states that the pain is not severe presently. She does reports having a exp lab in 2017 due to a kinked bowel, she is also is seeing a GI doc for IBS. 04/03: She has had some bleeding from her IV site so the heparin will be stopped/held for another 12 hours. Her right hand is quite bruised. 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 Her at home has Parkinson's. She lives in [place] and attends with Dr. Bowers. The white blood count is 13.5. The blood pressure was 157/101. The glucose was 185 and the A1c was 6.5. [facility] Medical History Atrial fibrillation Social History household members: spouse Smoking Status: Never smoker alcohol intake: current Meds Home Medications and Allergies Home Medications ?Medication ?Instructions ?Recorded ?Confirmed ?Type calcium citrate (Calcitrate) 400 mg PO DAILY ##0 06/18/17 04/02/25 History estradiol 1 mg tablet (Estrace) 1 mg PO .every other ##0 06/18/17 04/02/25 History losartan 50 mg tablet 50 mg PO BID ##0 06/18/17 04/02/25 History omeprazole 20 mg capsule,delayed 20 mg PO EVERY OTHER DAY ##0 06/18/17 04/02/25 History release pravastatin 40 mg tablet 40 mg PO QPM ##0 06/18/17 04/02/25 History furosemide 20 mg tablet (Lasix) 20 mg PO DAILY #3 tabs 07/16/21 04/02/25 Rx apixaban 5 mg tablet (Eliquis) 5 mg PO BID 01/27/25 04/02/25 History carvedilol 12.5 mg tablet 12.5 mg PO BID 01/27/25 04/02/25 History metformin 500 mg tablet 500 mg PO BID 01/27/25 04/02/25 History potassium chloride 10 mEq 10 meq PO DAILY 01/27/25 04/02/25 History tablet,extended release rosuvastatin 40 mg tablet 40 mg PO DAILY 01/27/25 04/02/25 History spironolactone 25 mg tablet 25 mg PO DAILY 01/27/25 04/02/25 History cholecalciferol (vitamin D3) 50 2,000 unit PO BID 04/02/25 04/02/25 History mcg (2,000 unit) tablet (D3 DOTS) levothyroxine 75 mcg tablet 75 mcg PO DAILY 04/02/25 04/02/25 History multivitamin (Daily Multi-Vitamin 1 tab PO DAILY 04/02/25 04/02/25 History tablet) Allergies Allergy/AdvReac Type Severity Reaction Status Date / Time codeine (CODEINE) Allergy Intermediate NAUSEA Verified 04/02/25 16:20 Sulfa (Sulfonamide Allergy Intermediate broke out Verified 04/02/25 16:20 Antibiotics) (SULFA in a rash (SULFONAMIDE ANTIBIOTICS)) Assessment & Plan 1. SBO- POD#1 ex lap/CONY closed loop obstruction, no bowel resection Plan per surgery: -Continue NGT for now, await NG output reduction, bowel activity, less distention -Expected postop ileus -H/O constipation, hard stool palpable at surgery, plan enemas, may need to clear with oral agents once NG out -Nutrition - regular diet tolerated at home until yesterday, check nutrition labs, consider TPN if ileus prolonged 2. atrial fib- on tele, holding the Eliquis, on heparin drip on hold due to IV site bleeding, resume tonight. 3. Dm- on accuchecks, insulin SS. Diet per surgery management. 4. HTN- Carvedilol, Lasix, Spironolactone, Kcl 5. Hypothyroidism- Levothyroxine DVT prevention with SCD and Heparin/Apixaban when bleeding risk has diminished. Exam Vital Signs (past 8 hours): - 04/03/25 00:52 04/03/25 01:00 04/03/25 04:00 Temperature Pulse Rate 77 Respiratory Rate 16 Blood Pressure 144/78 H Pulse Oximetry 94 96 95 Oxygen Delivery Method Room Air Room Air Oxygen Flow Rate 0 04/03/25 05:26 Temperature 97 F L Pulse Rate 86 Respiratory Rate 15 Blood Pressure 157/101 H Pulse Oximetry 96 Oxygen Delivery Method Oxygen Flow Rate 0 Oxygen Delivery Method Room Air Oxygen Flow Rate 0 Objective Labs 04/03/25 06:14 04/03/25 06:14 Labs: Laboratory Results - last 24 hr 04/02/25 04/02/25 04/02/25 16:15 16:50 20:54 WBC 9.3 RBC 4.56 Hgb 14.0 Hct 40.4 MCV 88.6 MCH 30.8 MCHC 34.7 RDW 14.2 Plt Count 302 Neut % (Auto) 80.4 H Lymph % (Auto) 11.4 L [place] % (Auto) 6.9 Eos % (Auto) 0.9 L Baso % (Auto) 0.4 Neut # (Auto) 7500 H Lymph # (Auto) 1100 [place] # (Auto) 600 Eos # (Auto) 100 Baso # (Auto) 0 PT INR APTT Sodium 137 Potassium 3.8 Chloride 98 Carbon Dioxide 29 BUN 22 H Creatinine 0.97 Estimated GFR 58 L BUN/Creatinine Ratio 22.7 H Glucose 117 H POC Whole Bld Glucose Hemoglobin A1c 6.5 H Lactate 0.7 Calcium 9.9 Phosphorus Magnesium 2.0 Total Bilirubin 1.0 AST 36 ALT 30 Alkaline Phosphatase 67 Total Protein 8.3 H Albumin 4.9 Globulin 3.4 Albumin/Globulin Ratio 1.4 Lipase 119 Urine Color Yellow Urine Appearance Clear Urine pH 6.5 Ur Specific [place] <=1.005 Urine Protein Negative Urine Glucose (UA) Negative Urine Ketones Negative Urine Occult Blood Negative Urine Nitrate Negative Urine Bilirubin Negative Urine Urobilinogen 0.2 Ur Leukocyte Esterase Negative Urine RBC 0-1/hpf Urine WBC 0-1/hpf Ur Squamous Epith Cells 1-5 /hpf Ur Transition Epith Cell 0-1/hpf Urine Bacteria None seen Ur Culture Indicated? Cult not indicated Vol Urine Centrifuged 10ml (spun) Blood Type A Positive Antibody Screen Negative 04/02/25 04/02/25 04/03/25 23:11 23:41 06:14 WBC 12.6 H 13.5 H RBC 4.27 4.29 Hgb 13.0 13.0 Hct 37.7 37.9 MCV 88.3 88.3 MCH 30.4 30.3 MCHC 34.4 34.3 RDW 14.1 14.2 Plt Count 267 284 Neut % (Auto) 90.8 H 93.9 H Lymph % (Auto) 5.3 L 3.7 L [place] % (Auto) 3.1 2.2 L Eos % (Auto) 0.4 L 0.0 L Baso % (Auto) 0.4 0.2 Neut # (Auto) 43367 H 36280 H Lymph # (Auto) 700 L 500 L [place] # (Auto) 400 300 Eos # (Auto) 100 0 Baso # (Auto) 0 0 PT 13.6 H INR 1.2 APTT 33 107 H* D Sodium 134 L 135 L Potassium 4.2 4.1 Chloride 101 102 Carbon Dioxide 27 24 BUN 20 H 20 H Creatinine 0.87 0.86 Estimated GFR > 60 > 60 BUN/Creatinine Ratio 23.0 H 23.3 H Glucose 154 H 185 H POC Whole Bld Glucose 145 H Hemoglobin A1c Lactate Calcium 8.9 8.6 Phosphorus 3.8 Magnesium 1.8 Total Bilirubin 0.6 AST 28 ALT 22 Alkaline Phosphatase 54 Total Protein 6.5 Albumin 3.8 Globulin 2.7 Albumin/Globulin Ratio 1.4 Lipase Urine Color Urine Appearance Urine pH Ur Specific [place] Urine Protein Urine Glucose (UA) Urine Ketones Urine Occult Blood Urine Nitrate Urine Bilirubin Urine Urobilinogen Ur Leukocyte Esterase Urine RBC Urine WBC Ur Squamous Epith Cells Ur Transition Epith Cell Urine Bacteria Ur Culture Indicated? Vol Urine Centrifuged Blood Type Antibody Screen 04/03/25 08:04 WBC RBC Hgb Hct MCV MCH MCHC RDW Plt Count Neut % (Auto) Lymph % (Auto) [place] % (Auto) Eos % (Auto) Baso % (Auto) Neut # (Auto) Lymph # (Auto) [place] # (Auto) Eos # (Auto) Baso # (Auto) PT INR APTT Sodium Potassium Chloride Carbon Dioxide BUN Creatinine Estimated GFR BUN/Creatinine Ratio Glucose POC Whole Bld Glucose 183 H Hemoglobin A1c Lactate Calcium Phosphorus Magnesium Total Bilirubin AST ALT Alkaline Phosphatase Total Protein Albumin Globulin Albumin/Globulin Ratio Lipase Urine Color Urine Appearance Urine pH Ur Specific [place] Urine Protein Urine Glucose (UA) Urine Ketones Urine Occult Blood Urine Nitrate Urine Bilirubin Urine Urobilinogen Ur Leukocyte Esterase Urine RBC Urine WBC Ur Squamous Epith Cells Ur Transition Epith Cell Urine Bacteria Ur Culture Indicated? Vol Urine Centrifuged Blood Type Antibody Screen [facility] Medical History (Updated 09/23/25 @ 20:49 by Verito Rosales RN) Atrial fibrillation Social History household members: spouse Smoking Status: Never smoker alcohol intake: current Assessment & Plan Time-Based Coding :: [TOTAL MINUTES] spent with patient and on the chart (including review of chart, obtaining history, exam, reviewing outside data, placing orders, documenting exam and treatment plan, and counseling patient) on [DATE].
[2025-04-03] MEDS: INSULIN LISPRO 100 UNIT/ML 3ML VIAL SUBCUT ×3 (08:24→17:37)
--- NOTE | 2025-04-03 08:36 | PC.NURSE ---
Addendum entered by Shannen Looney RN 04/03/25 19:10: Dr. Shahid also made aware that pt's IV site was bleeding during 08 notification. Original Note: At 0810: Notified hospitalist Dr. Shahid that pt's morning aPTT was 107 and that her heparin drip was currently paused due to protocol. Per Dr. Shahid, continue to hold heparin for 12 hours, then restart heparin drip per protocol.
[2025-04-03] MEDS: SODIUM CHLORIDE 0.9% FLUSH 10 ML IV ×2 (09:47→21:47)
[2025-04-03] MEDS: FLEETS ENEMA 1 EACH PR (09:48)
[2025-04-03 09:54] LABS: Prealbumin 21.9 mg/dL (17.6-36.0)
[2025-04-03 09:55] LABS: Transferrin 276 mg/dL (206-381)
--- NOTE | 2025-04-03 11:33 | OT.IPNOTE ---
Checked on pt for OT eval and pt states just wanting to rest. Pt able to answer prior level of care and home set-up.
--- NOTE | 2025-04-03 12:14 | PT-IP ANOTE ---
checked on pt this morning and refused PT. stated that she has all the tubes attached to her and that she does not think she is ready to do PT. educated pt regarding PT order and importance of mobility. pt agreed for PT to check back in the afternoon. informed nurse.
--- NOTE | 2025-04-03 13:35 | CM.DANOTE ---
Initial DCP Assessment Visit Note Reviewed EMR and team rounds for pt's medical status and updates. Met with pt at bedside to introduce self and role. Pt lives independently at baseline with her spouse in their own home in [place]. Her spouse will also plan to transport her home once she's medically stable for d/c, likely in another 1-2 days. No CM d/c resources or assistance needs are identified at this time. Payor: [facility] Adv PCP: Dr. Mcfarlane Pt is a 84 year-old F with a hx of HTN, diabetes, Afibon Eliquis, hx of prior bowel obstruction presented to [facility] ED with c/o worsening abdominal pain surrounding his ambilicus. She is also having symptoms of excessive gas/belching, and she's concerned about having another possible bowel obstruction. CT abd/pelvis confirmed that she does have another SBO with possible ischemia. Plan was made to make her NPO and take her to surgery for exploratory laparotomy. She did have a twisted bowel that was able to be fixed during surgery. She has been kept with a NG tube in place until this afternoon, now is advancing to clears. DCP will continue to follow and assist with any further evolving needs prior to d/c. Discharge Planning/Care Management Advanced directive, confirm from FAMILY Start: 04/02/25 22:39 Freq: Q24H Status: Active Protocol: Document 04/02/25 22:39 SH (Rec: 04/03/25 01:13 SH Other) Advance Directive, confirm on record Time 22:30 Person contacted pt/ family Copy received No CM Discharge Assessment Start: 04/02/25 19:34 Freq: Status: Active Protocol: Document 04/03/25 13:33 DPL (Rec: 04/03/25 13:35 DPL [id number]) Discharge Planning Assessment Assigned Discharge PONCE [place] In Insurance [facility] Advance Directives? No Advance Directives No on File History Provided By Patient,Medical Record Has Patient been No admitted in last 30 days? Prior Living House Arrangements Household Members spouse Type of Drives own vehicle transporation used prior to admit Independent with ADL Yes 's Is patient alert and Yes oriented? Comment N/A Comment No identified home d/c needs at this time. Barriers to No Discharge Discharge Plan Home Referrals Initiated None needed Whiteboard Updated Yes in Patient Room with name and ext. # of Embryology Professor Review Status In Process Please Provide Date 04/03/25 Initial DC Assessment Was Performed
--- NOTE | 2025-04-03 13:55 | PT.IIE ---
Current Diagnoses Unspecified intestinal obstruction, unspecified as to partial versus complete obstruction (04/02/25) Surgery Performed Operation Date: 04/02/25 20:00 Actual Procedures p Exploratory Laparotomy GEN Lysis of Adhesions(Not Applicable) - Yung Howell MD Medical History (Last Updated 04/02/25 @ 20:49 by Verito Rosales RN) Atrial fibrillation Physical Therapy Inpatient Evaluation/Re-Eval M1 PT/OT-IP Prior Functional Status Start: 04/03/25 16:10 Freq: NEEDED Status: Active Protocol: Document 04/03/25 13:55 AB (Rec: 04/03/25 16:27 AB [id number]) Medical Review Prior Functional Status Medical History Yes Reviewed Communication able to make needs known Mobility and Gait pt stated that she was independent with all mobilities and ambulation without AD; 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 Home Environment High Toilet,Walk in Shower,Built-In Shower Seat Home Equipment Front Wheel Walker,Straight Cane,Manual Wheelchair, Shower Seat with Backrest,Hand Held Shower,Decorating Inspector,Grab Bars Near Toilet Additional Social pt takes care of her spouse who has PD; currently pt's History Comment son and DIL assisting pt's spouse at this time pt has an adjustable bed M2 PT-IP Current Condition Start: 04/03/25 16:10 Freq: NEEDED Status: Active Protocol: Document 04/03/25 13:55 AB (Rec: 04/03/25 16:27 [id number]) Physical Therapy Current Condition Current Condition Evaluation Date 04/03/25 Treatment Diagnosis SBO s/p ex-lap; difficulty in walking Onset Date 04/02/25 M3 PT-IP Subjective Start: 04/03/25 16:10 Freq: NEEDED Status: Active Protocol: Document 04/03/25 13:55 AB (Rec: 04/03/25 16:27 [id number]) Subjective Physical Therapy Visit Type Type Initial Evaluation Visit Start Time 13:55 Visit Stop Time 14:30 Number of MAINTENANCE MECHANIC 2ND SHIFT Visits 0 Physical Therapy Visit Comments Patient Comments agreeable to do PT Therapy Pain Assessment Location Abdomen Intensity 1 Scale Used Numeric (0 - 10) Pain Management Distraction,Modification of Treatment,Re-positioning, Techniques Timing of Activity with Medications M4 PT-IP Mobility and Gait Start: 04/03/25 16:10 Freq: NEEDED Status: Active Protocol: Document 04/03/25 13:55 AB (Rec: 04/03/25 16:27 AB [id number]) PT-Transfer Assessment Sit to and From Stand Sit to and from Contact Guard Assistance,1 Person Assistance,Use of Stand Upper Extremities Equipment Transfer Assistive Gait Belt,Front Wheeled Walker Device Orthotic/Prosthetic No Devices or Brace: Comments Mobility Comments pt sitting on the chair and agreeable to do PT. obtained PLOF and home set up. educated pt on abdominal precautions and log roll bed mobility. pt refused to do bed mobility at this time but agreed to get up and ambulate. Pt with NG tube and needed assistance to manage. sit to stand from the chair CGA and ambulated using FWW ~ 35 ft CGA and cues. pt sat back on chair. positioned pt on the chair. call light and table placed within reach. Gait Assessment Gait Gait Assistance Contact Guard Assist,1 Person Assist Required: Distance (Feet) 35 Able to Maintain Yes Weight Bearing Status During Gait Assistive Devices Assistive Device Gait Belt,Front Wheeled Walker Orthotic/Prosthetic No Devices or Brace: Gait Deviations General Gait Pattern Decreased Stride Length,Decreased Feet Clearance,Step- to Gait Factors Limiting Gait Function Factors Limiting Decreased Activity Tolerance,Decreased Strength, Gait Function Difficulty Following Directions,Limited Range of Motion ,Pain,Poor Balance,Poor Safety Awareness PT-Balance Assessment Sitting Balance and Reactions Static Sitting Good Balance Ability Dynamic Sitting Fair Balance Ability Standing Balance and Reactions Static Standing Fair Balance Ability Dynamic Standing Fair Balance Ability Device Used FWW M5 PT-IP Objective Assessments Start: 04/03/25 16:10 Freq: NEEDED Status: Active Protocol: Document 04/03/25 13:55 AB (Rec: 04/03/25 16:27 AB [id number]) Orientation Orientation/Cognition Level of Alertness Alert Orientation Name,Place,Situation Language Function No Deficits Noted Ability Safety Awareness Decreased Safety Awareness Memory Description No Deficits Noted Gross Range of Motion Lower Extremity ROM Assessment Within Functional Limits Strength Comments Strength Comments LLE: 4+/5 RLE: 4/5 Coordination Assessment Gross Coordination Gross Coordination WNL Sensation Assessment Sensation Gross Sensation WNL Muscle Tone Muscle Tone WNL Yes M6 PT-IP Treatment Start: 04/03/25 16:10 Freq: NEEDED Status: Active Protocol: Document 04/03/25 13:55 AB (Rec: 04/03/25 16:27 AB [id number]) Physical Therapy Treatment Education Education Provided Precautions,Post-Op Packet,Safety M7 PT-IP Assessment and Plan Start: 04/03/25 16:10 Freq: NEEDED Status: Active Protocol: Document 04/03/25 13:55 AB (Rec: 04/03/25 16:27 AB [id number]) PT Summary Assessment and Plan Potential Rehabilitation Good Potential Status of Condition Evolving at Evaluation Summary Impairments Pain,ROM,Strength,Balance,Coordination,Sensation,Bed Mobility,Transfers,Gait,Activity Tolerance Assessment Summary pt is an 84 y/o F who is admitted for SBO and underwent ex-lap and lysis of adhesions POD 1. pt has abdominal precautions. pt requiring CGA with ambulation using FWW and had decrease activity tolerance affecting level of assistance. pt will need assistance at home at this time. d/c plan depending on progress. will continue to assess. Goals Bed Mobility Goal Independent Transfer Goal Independent,Front Wheeled Walker Gait Goal Independent,Front Wheel Walker Gait Distance 100 Other Goals improve transfers and ambulation using LRAD/without AD ~ 200 ft SBA up/down 2 steps R rail ascending SBA Days to Meet Goals 10 Frequency of Treatment Frequency Of Once a Day Treatment Treatment Plan Physical Therapy Bed Mobility Training,Transfer Training,Gait Training, Treatment Plan Therapeutic Exercise,Balance Retraining,Post Op Education,Discharge Planning,Hot or Cold Pack, Neuromuscular Re-ed,Coordination Retraining,Manual Therapy Precautions Abdominal Surgery Log Roll,Lifting Restrictions,Gait Belt above Precautions Incisional Area Recommendations To Nursing Amount of Assist 1 Person Assist Needed Discharge Recommendations PT Discharge Home with Assistance,Home Health,SNF Rehab,Home vs SNF Recommendations Transportation Needs Private Vehicle,Wheelchair/Cabulance at Discharge - PT assist 1
--- NOTE | 2025-04-03 14:00 | OT.IP.EVAL ---
Current Diagnoses Unspecified intestinal obstruction, unspecified as to partial versus complete obstruction (04/02/25) Surgery Performed Operation Date: 04/02/25 20:00 Actual Procedures p Exploratory Laparotomy GEN Lysis of Adhesions(Not Applicable) - Yung Howell MD Past Medical History (Last Updated 04/02/25 @ 20:49 by Verito Rosales RN) Atrial fibrillation Occupational Therapy Inpatient Evaluation/Re-Eval M1 PT/OT-IP Prior Functional Status Start: 04/03/25 14:44 Freq: NEEDED Status: Active Protocol: Document 04/03/25 14:44 [facility] (Rec: 04/03/25 14:57 [facility] Desktop) Medical Review Prior Functional Status Communication I Mobility and Gait I Activities of Daily I, pt takes care of her who has Parkinson's. Living and IADL's Prior Functional Pt's son and DIL in town to assist as her Level (Other details requires assist. ) Social History Household Members spouse Living Arrangements House Number of Floors ( One Floor Floors) Number of Stairs To 2 steps- one regular step and then a platform step with Enter/Railing? right rail going up. Home Environment High Toilet,Walk in Shower,Built-In Shower Seat Home Equipment Front Wheel Walker,Straight Cane,Manual Wheelchair, Shower Seat with Backrest,Hand Held Shower,Supervisor Vegetable Farming,Grab Bars Near Toilet,Grab Bars In Shower M2 OT-IP Current Condition Start: 04/03/25 14:44 Freq: Status: Active Protocol: Document 04/03/25 14:44 [facility] (Rec: 04/03/25 14:57 [facility] Desktop) Occupational Therapy Current Condition Current Condition Evaluation Date 04/03/25 Treatment Diagnosis SBO, S/P exlap/CONY closed loop obstruction Diagnosis Onset Date 04/02/25 Post Operative Precautions Abdominal Surgery Log Roll,Lifting Restrictions,Gait Belt above Precautions Incisional Area M3 OT- IP Subjective and Pain Start: 04/03/25 14:44 Freq: Status: Active Protocol: Document 04/03/25 14:44 [facility] (Rec: 04/03/25 14:57 [facility] Desktop) OT- Subjective Occupational Therapy Visit Type Type Initial Evaluation Visit Start Time 14:00 Visit Stop Time 14:28 Occupational Therapy Visit Comments Patient Comments Pt agreed to get up. Patient/Caregiver TO go home. Goals OT Pain Assessment Pain When Pain Assessed During Mobility Pain Present Pain Present Pain Reported Location Abdomen Pain Behaviors Facial Grimacing,Holding Area M4 OT- IP ADL's Start: 04/03/25 14:44 Freq: Status: Active Protocol: Document 04/03/25 14:44 [facility] (Rec: 04/03/25 14:57 [facility] Desktop) OT [id number] Comments OT Self-Feeding NPO Comments OT ADL-Grooming Comments OT Grooming Comments Nor performed. OT ADL-Oral Care Comments Oral Care Comments Pt has been able to swab her mouth with sponge. OT ADL-Dressing General Eval Lower Body Dressing Maximum Assistance Ability Comments OT Dressing Comments Spoke about LB dressing equipment to help follow her abdominal precautions. OT ADL-Toileting Comments OT Toileting Pt states just used the BSC earlier with nursing. Comments OT ADL-Bathing Comments OT Bathing Comments Not performed. M5 OT- IP IADL's Start: 04/03/25 14:44 Freq: Status: Active Protocol: Document 04/03/25 14:44 [facility] (Rec: 04/03/25 14:57 [facility] Desktop) OT-Instrumental Activities of Daily Living Home Safety Awareness Awareness of Need Good Awareness for Assistance at Home Ability to Problem Able to Problem Solve Solve Emergency Situations Medication Management Medication No Deficits Identified Management Money Management Money Management No Deficits Identified Meal Preparation Meal Preparation Pt will need assist. Comments Window Shade Ring Sewer Window Shade Ring Sewer Pt will need assist. Comments M6 OT- IP Functional Cognition Start: 04/03/25 14:44 Freq: Status: Active Protocol: Document 04/03/25 14:44 [facility] (Rec: 04/03/25 14:57 [facility] Desktop) Cognitive Factors Limiting Selfcare Function Cognitive Ability Level of Alertness Alert Patient Orientation Name,Age,Birthday,Month,Date,Year,Day of Week,Place, Situation Attention Span Capable of Focused Attention,Capable of Sustained Ability Attention Ability to Follow Able to Follow One Step Commands Commands Cognitive Comments Cognitive Assessment Pt able to follow commands for mobility needs. Pt Comments however did not recall log rolling information from earlier. OT- Vision and Hearing OT- Vision Assessment Visual Acuity Glasses All The Time Visual Attentiveness WFL Occular Pursuits WFL M7 OT- IP Mobility and Balance Start: 04/03/25 14:44 Freq: Status: Active Protocol: Document 04/03/25 14:44 [facility] (Rec: 04/03/25 14:57 [facility] Desktop) OT-Transfer Assessment Sit to and From Stand Sit to and from Contact Guard Assistance Stand Transfers Transfer Ability Contact Guard Assistance Technique Transfer Destination Chair Transfer Technique Stand Step Pivot Devices Transfer Assistive Gait Belt,Front Wheeled Walker Devices Comments Mobility Comments CGA to stand and move in the room with FWW, limited by the NG tube. OT- Balance Assessment Sitting Balance and Reactions Static Sitting Normal Balance Ability Dynamic Sitting Good Balance Ability Standing Balance and Reactions Static Standing Good Balance Ability Dynamic Standing Fair Balance Ability M8 OT- IP Objective Assessments Start: 04/03/25 14:44 Freq: Status: Active Protocol: Document 04/03/25 14:44 [facility] (Rec: 04/03/25 14:57 [facility] Desktop) OT Gross Range of Motion Upper Extremity Range of Motion Assessment Within Functional Limits OT Strength Comments Strength Comments WFL for needs. OT- Coordination Assessment Comments Coordination Arthritis changes in hands. Pt states wear a finger Comments splint for right hand as has pain with movements in extension. M9 OT- IP Assessment and Plan Start: 04/03/25 14:44 Freq: Status: Active Protocol: Document 04/03/25 14:44 [facility] (Rec: 04/03/25 14:57 [facility] Desktop) OT Summary Assessment and Plan Potential Rehabilitation Good Potential Analytic Complexity Moderate at Evaluation Summary OT Impairments Pain,Balance,Functional Mobility,Grooming,Dressing, Toileting,Bathing,Toilet Transfers,Shower Transfers, Activity Tolerance Progress Towards Progressing Toward Goals,Slow Progress due to Pain,Slow Goals Progress due to Medical Issues,Slow Progress due to Activity Tolerance Assessment Summary Pt MOD complexity and main barriers are mobility limited by NG tube now, decreased dynamic balance and activity tolerance. Pt just needing CGA for mobility to stand and transfer with FWW at this time. Pt states her son is home already to take care of her who has Parkinson's. When medically stable pt to go home with 24/7 available assist and home health. Goals Self-Feeding Goal Independent Grooming Goal Independent Dressing Goal Independent Toileting Goal Independent Bathing Goal Independent Toilet Transfer Goal Independent Shower Transfer Goal Independent Days to Meet Goals 15 Treatment Plan OT Treatment Plan ADL Training,Functional Mobility,Patient/Family Education,Discharge Planning Other Treatment Go over log rolling and LB dressing equipment. Recommendations and Next Treatment Focus Discharge Recommendations OT Discharge Home with 24/7 Assist Available,Home Health Recommendations Transportation Needs Private Vehicle at Discharge
[2025-04-03 19:17] LABS: PTT Partial Thromboplastin Tim 29 SECONDS (25.1-36.5)
[2025-04-03] MEDS: HEPARIN 5,000 UNIT/ML VIAL 5000 UNIT IV (19:55)
[2025-04-04] VITALS (9 sets, daily range): BP systolic 133–166; BP diastolic 69–87; PULSE 82–92; RESP 16–18; TEMP 36.6–37.2; O2SAT 93–99
[2025-04-04 02:02] LABS: PTT Partial Thromboplastin Tim 154 SECONDS (25.1-36.5)
--- NOTE | 2025-04-04 07:05 | PM.PN.1 ---
Subjective Subjective Date Patient Seen: 04/04/25 Interval history: The pt is a 84 yo with a hx of a-fib on Eliquis, HTN, DM who presents to the ER tonight c/o one day hx of severe abd pain, generalized, constant, sharp. In the ER a CT of the abd was done that showed a loop of bowel concerning for ischemia. Gernal Surgery, Dr. Patel was consulted and took the pt to the OR for exp lab, KCentra given to reverse the Eliquis, the pt was seen post OP. She states that the pain is not severe presently. She does reports having a exp lab in 2017 due to a kinked bowel, she is also is seeing a GI doc for IBS. 04/03: She has had some bleeding from her IV site so the heparin will be stopped/held for another 12 hours. Her right hand is quite bruised. 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 Her at home has Parkinson's. She lives in [place] and attends with Dr. Bowers. The white blood count is 13.5. The blood pressure was 157/101. The glucose was 185 and the A1c was 6.5. 04/04: She has been back on heparin since last evening and has no current evidence of intolerance/bleeding. Surgery is following her and she continues with a nasogastric tube with abdominal x-rays today. She says that she is passing gas. Meds Home Medications and Allergies Home Medications ?Medication ?Instructions ?Recorded ?Confirmed ?Type calcium citrate (Calcitrate) 400 mg PO DAILY ##0 06/18/17 04/02/25 History estradiol 1 mg tablet (Estrace) 1 mg PO .every other ##0 06/18/17 04/02/25 History losartan 50 mg tablet 50 mg PO BID ##0 06/18/17 04/02/25 History omeprazole 20 mg capsule,delayed 20 mg PO EVERY OTHER DAY ##0 06/18/17 04/02/25 History release pravastatin 40 mg tablet 40 mg PO QPM ##0 06/18/17 04/02/25 History furosemide 20 mg tablet (Lasix) 20 mg PO DAILY #3 tabs 07/16/21 04/02/25 Rx apixaban 5 mg tablet (Eliquis) 5 mg PO BID 01/27/25 04/02/25 History carvedilol 12.5 mg tablet 12.5 mg PO BID 01/27/25 04/02/25 History metformin 500 mg tablet 500 mg PO BID 01/27/25 04/02/25 History potassium chloride 10 mEq 10 meq PO DAILY 01/27/25 04/02/25 History tablet,extended release rosuvastatin 40 mg tablet 40 mg PO DAILY 01/27/25 04/02/25 History spironolactone 25 mg tablet 25 mg PO DAILY 01/27/25 04/02/25 History cholecalciferol (vitamin D3) 50 2,000 unit PO BID 04/02/25 04/02/25 History mcg (2,000 unit) tablet (D3 DOTS) levothyroxine 75 mcg tablet 75 mcg PO DAILY 04/02/25 04/02/25 History multivitamin (Daily Multi-Vitamin 1 tab PO DAILY 04/02/25 04/02/25 History tablet) Allergies Allergy/AdvReac Type Severity Reaction Status Date / Time codeine (CODEINE) Allergy Intermediate NAUSEA Verified 04/02/25 16:20 Sulfa (Sulfonamide Allergy Intermediate broke out Verified 04/02/25 16:20 Antibiotics) (SULFA in a rash (SULFONAMIDE ANTIBIOTICS)) Assessment & Plan 1. SBO- POD#2 ex lap/CONY closed loop obstruction, no bowel resection Plan per surgery: -Continue NGT for now, await NG output reduction, bowel activity, less distention -Expected postop ileus -H/O constipation, hard stool palpable at surgery, plan enemas, may need to clear with oral agents once NG out -Nutrition - regular diet tolerated at home until yesterday, check nutrition labs, consider TPN if ileus prolonged 2. atrial fib- on tele, holding the Eliquis, on heparin drip on hold due to IV site bleeding, resumed 04/03 evening. 3. Dm- on accuchecks, insulin SS. Diet per surgery management. 4. HTN- Carvedilol, Lasix, Spironolactone, Kcl-on hold due to NG tube. Use IV/NG for treatment if blood pressure rises. 5. Hypothyroidism- Levothyroxine-on hold due to NG tube DVT prevention with SCD and Heparin/Apixaban when bleeding risk has diminished. Exam Vital Signs (past 8 hours): - 04/04/25 00:00 04/04/25 02:00 04/04/25 03:56 Temperature 97.9 F Pulse Rate 87 Respiratory Rate 16 Blood Pressure 136/79 Pulse Oximetry 99 93 93 Oxygen Delivery Method Room Air Room Air 04/04/25 06:00 Temperature 98.3 F Pulse Rate 83 Respiratory Rate 18 Blood Pressure 133/69 Pulse Oximetry 97 Oxygen Delivery Method Oxygen Delivery Method Room Air Oxygen Flow Rate 0 Narrative Exam Narrative: Alert and oriented x3. Moderate distress from continued NG tube. Abdomen is distended, soft, with bowel sounds heard. Nasogastric tube in the left nostril Heart is irregularly irregular without murmur Lungs are clear to auscultation bilaterally There is no ankle edema. Objective Labs 04/03/25 06:14 04/03/25 06:14 Labs: Laboratory Results - last 24 hr 04/03/25 04/03/25 04/03/25 06:14 08:04 11:23 APTT 107 H* D POC Whole Bld Glucose 183 H 183 H Transferrin 276 Prealbumin 21.9 04/03/25 04/03/25 04/03/25 16:50 18:59 20:00 APTT 29 D POC Whole Bld Glucose 131 H 112 H Transferrin Prealbumin 04/04/25 01:18 APTT 154 H* D POC Whole Bld Glucose Transferrin Prealbumin [facility] Medical History (Updated 04/02/25 @ 20:49 by Verito Rosales RN) Atrial fibrillation Social History household members: spouse Smoking Status: Never smoker alcohol intake: current Assessment & Plan Time-Based Coding :: [TOTAL MINUTES] spent with patient and on the chart (including review of chart, obtaining history, exam, reviewing outside data, placing orders, documenting exam and treatment plan, and counseling patient) on [DATE].
--- NOTE | 2025-04-04 09:20 | DI.RAD.S_ITS ---
PROCEDURE: XR ABDOMEN MIN 2V INDICATIONS: Abd distention after SBO surgery TECHNIQUE: 2 views of the abdomen were acquired. COMPARISON: [facility], CT, CT ABDOMEN PELVIS W CON, 04/02/2025, 17:24. FINDINGS: Surgical changes and devices: Enteric tube in place with tip and side port projecting over the expected location of the stomach. Bowel: No pneumoperitoneum. The bowel gas pattern is normal. Prominent stool burden. Soft tissues: No masses; visualized solid organ contours appear normal in size. No suspicious abdominal calcifications. Bones: No suspicious bony abnormalities. IMPRESSION: Non-obstructive bowel gas pattern. Prominent stool burden. Dictated by: Rajesh Black M.D. on 04/04/2025 at 12:06 Approved by: Rajesh Black M.D. on 04/04/2025 at 12:07
--- NOTE | 2025-04-04 09:22 | P.PN_ITS ---
Subjective Subjective Date Patient Seen: 04/04/25 Time Patient Seen: 09:22 Interval history: POD#2 ex lap, skip Stable overnight NG drainage decreasing (sanguinous, on PPI) passing flatus Denies n/v Afebrile Exam Vital Signs (past 8 hours): - 04/04/25 02:00 04/04/25 03:56 04/04/25 06:00 Temperature 97.9 F 98.3 F Pulse Rate 87 83 Respiratory Rate 16 18 Blood Pressure 136/79 133/69 Pulse Oximetry 93 93 97 Oxygen Delivery Method Room Air Oxygen Delivery Method Room Air Oxygen Flow Rate 0 Const General: comfortable Orientation: alert, awake and oriented x3 Resp Effort & Inspection: normal respiratory effort and able to speak in complete sentences GI Other: ABD: soft, less distended, wound CDI without erythema or drainage. Tenderness appropriate for postop. NGT with sanguinous drainage Objective Labs 04/03/25 06:14 04/03/25 06:14 Labs: Laboratory Results - last 24 hr 04/03/25 04/03/25 04/03/25 06:14 11:23 16:50 APTT POC Whole Bld Glucose 183 H 131 H Transferrin 276 Prealbumin 21.9 04/03/25 04/03/25 04/04/25 18:59 20:00 01:18 APTT 29 D 154 H* D POC Whole Bld Glucose 112 H Transferrin Prealbumin 04/04/25 07:19 APTT POC Whole Bld Glucose 112 H Transferrin Prealbumin PFSH Medical History (Updated 04/02/25 @ 20:49 by Verito Rosales RN) Atrial fibrillation Social History household members: spouse Smoking Status: Never smoker alcohol intake: current Assessment & Plan Assessment and plan (1) Small bowel obstruction: Status: Acute Plan POD#2 ex lap/SKIP for SBO, no bowel resection required NG output decreased, sanguinous drainage, on PPI; possible d/c NGT tomorrow, hgb 13 yesterday, monitor Check AXR for progression Severe constipation noted at surgery, repeat fleets enema today, MOM via NGT, continue to clear stool from both ends once NG out Time-Based Coding :: [TOTAL MINUTES] spent with patient and on the chart (including review of chart, obtaining history, exam, reviewing outside data, placing orders, documenting exam and treatment plan, and counseling patient) on [DATE]. [employer] Closing Clerk Document charge(s): Yes Charge Codes Subsequent inpatient/observation care: [id number]
[2025-04-04 09:25] LABS: PTT Partial Thromboplastin Tim 56 SECONDS (25.1-36.5)
--- NOTE | 2025-04-04 09:32 | PT.IPTN ---
Current Diagnoses Unspecified intestinal obstruction, unspecified as to partial versus complete obstruction (04/02/25) Surgery Performed Operation Date: 04/02/25 20:00 Actual Procedures p Exploratory Laparotomy GEN Lysis of Adhesions(Not Applicable) - Yung Howell MD Physical Therapy Treatment Note M2 PT-IP Current Condition Start: 04/03/25 16:10 Freq: NEEDED Status: Active Protocol: Document 04/03/25 13:55 AB (Rec: 04/03/25 16:27 AB [id number]) Physical Therapy Current Condition Current Condition Evaluation Date 04/03/25 Treatment Diagnosis SBO s/p ex-lap; difficulty in walking Onset Date 04/02/25 M3 PT-IP Subjective Start: 04/03/25 16:10 Freq: NEEDED Status: Active Protocol: Document 04/04/25 09:32 [facility] (Rec: 04/04/25 09:45 [facility] Desktop) Subjective Physical Therapy Visit Type Type Treatment Note Visit Start Time 09:05 Visit Stop Time 09:32 Notes 27 min Number of POWERHOUSE ELECTRICIAN Visits 0 Physical Therapy Visit Comments Patient Comments she reports not sleeping well last night Patient Goals get better Therapy Pain Assessment Pain When Pain Assessed During Mobility Pain Present Pain Present Pain Reported Location Abdomen Intensity 3 Scale Used Numeric (0 - 10) Description Aching,Tender Pain Behaviors Guarding Pain Management Modification of Treatment,Re-positioning Techniques M4 PT-IP Mobility and Gait Start: 04/03/25 16:10 Freq: NEEDED Status: Active Protocol: Document 04/04/25 09:32 [facility] (Rec: 04/04/25 09:45 [facility] Desktop) PT-Bed Mobility Assessment Rolling Type of Rolling Log Rolling Level of Assist Contact Guard Assistance,Minimal Assistance Sit to Supine Sit to Supine Contact Guard Assistance,Minimal Assistance,Bedrails Scooting Scooting to Edge of Independent Bed PT-Transfer Assessment Sit to and From Stand Sit to and from Standby Assistance,Use of Upper Extremities Stand Equipment Transfer Assistive Gait Belt,Front Wheeled Walker Device Transfers Transfer Destination Chair Transfer Technique Stand Step Pivot Transfer Ability Level of Assist Standby Assistance,Use of Upper Extremities Comments Mobility Comments Pt needs physical cues and verbal cues to log roll getting out of bed. Pt agreed to sit up in recliner after gait. Gait Assessment Gait Gait Assistance Standby Assistance,1 Person Assist Required: Distance (Feet) 40 Assistive Devices Assistive Device Gait Belt,Front Wheeled Walker Gait Deviations General Gait Pattern Decreased Stride Length,Decreased Feet Clearance,Step- to Gait Factors Limiting Gait Function Factors Limiting Decreased Activity Tolerance,Decreased Strength,Pain, Gait Function Poor Balance Comments Gait Comments plus help with lines during gait, pt ambulated around bed due to limited cord length on NG tube PT-Balance Assessment Sitting Balance and Reactions Static Sitting Good Balance Ability Dynamic Sitting Good Balance Ability Standing Balance and Reactions Static Standing Good Balance Ability Dynamic Standing Fair Balance Ability Device Used FWW M5 PT-IP Objective Assessments Start: 04/03/25 16:10 Freq: NEEDED Status: Active Protocol: Document 04/03/25 13:55 AB (Rec: 04/03/25 16:27 AB [id number]) Orientation Orientation/Cognition Level of Alertness Alert Orientation Name,Place,Situation Language Function No Deficits Noted Ability Safety Awareness Decreased Safety Awareness Memory Description No Deficits Noted Gross Range of Motion Lower Extremity ROM Assessment Within Functional Limits Strength Comments Strength Comments LLE: 4+/5 RLE: 4/5 Coordination Assessment Gross Coordination Gross Coordination WNL Sensation Assessment Sensation Gross Sensation WNL Muscle Tone Muscle Tone WNL Yes M6 PT-IP Treatment Start: 04/03/25 16:10 Freq: NEEDED Status: Active Protocol: Document 04/04/25 09:32 [facility] (Rec: 04/04/25 09:45 [facility] Desktop) Physical Therapy Treatment Exercises Exercises Ankle Pumps,Seated Knee Flexion/Extension,Shoulder Flexion Education Education Provided Precautions,Post-Op Packet,Safety Other Treatments Other Treatment Other exercise: seated hip flexion to her tolerance Performed with abdominal soreness M7 PT-IP Assessment and Plan Start: 04/03/25 16:10 Freq: NEEDED Status: Active Protocol: Document 04/04/25 09:32 [facility] (Rec: 04/04/25 09:45 [facility] Desktop) PT Summary Assessment and Plan Summary Impairments Pain,ROM,Strength,Balance,Coordination,Sensation,Bed Mobility,Transfers,Gait,Activity Tolerance Progress Towards Progressing Toward Goals Goals Assessment Summary Staci is progressing slowly but well today. Her NG tube complicates her mobility at this time. She was able to ambulate in her room with the FWW and sit up in the recliner. She shows good effort with therapy. She continues to have decreased activity tolerance with use of FWW and abdominal pain. Will update her discharge plan to home with assist and home health services assuming she continues to progress well. I anticipate she will not be ready to return to caring for her Spouse at discharge so family will need to assist with additional caregiver support for the Spouse while the pt continues to recover. Goals Bed Mobility Goal Independent Transfer Goal Independent,Front Wheeled Walker Gait Goal Independent,Front Wheel Walker Gait Distance 100 Other Goals improve transfers and ambulation using LRAD/without AD ~ 200 ft SBA up/down 2 steps R rail ascending SBA Days to Meet Goals 10 Frequency of Treatment Frequency Of Once a Day Treatment Treatment Plan Physical Therapy Bed Mobility Training,Transfer Training,Gait Training, Treatment Plan Therapeutic Exercise,Balance Retraining,Post Op Education,Discharge Planning,Neuromuscular Re-ed Precautions Abdominal Surgery Log Roll,Lifting Restrictions,Gait Belt above Precautions Incisional Area Recommendations To Nursing Amount of Assist 1 Person Assist Needed Discharge Recommendations PT Discharge Home with Assistance,Home Health Recommendations Other Discharge she will not be able to care for Spouse at discharge Recommendations Transportation Needs Private Vehicle at Discharge - PT assist 1
--- NOTE | 2025-04-04 10:50 | OT.IP.TRT ---
Current Diagnoses Unspecified intestinal obstruction, unspecified as to partial versus complete obstruction (04/02/25) Surgery Performed Operation Date: 04/02/25 20:00 Actual Procedures p Exploratory Laparotomy GEN Lysis of Adhesions(Not Applicable) - Yung Howell MD Occupational Therapy Treatment Note M2 OT-IP Current Condition Start: 04/03/25 14:44 Freq: Status: Active Protocol: Document 04/03/25 14:44 [facility] (Rec: 04/03/25 14:57 [facility] Desktop) Occupational Therapy Current Condition Current Condition Evaluation Date 04/03/25 Treatment Diagnosis SBO, S/P exlap/CONY closed loop obstruction Diagnosis Onset Date 04/02/25 Post Operative Precautions Abdominal Surgery Log Roll,Lifting Restrictions,Gait Belt above Precautions Incisional Area M3 OT- IP Subjective and Pain Start: 04/03/25 14:44 Freq: Status: Active Protocol: Document 04/04/25 10:44 [facility] (Rec: 04/04/25 10:49 [facility] Desktop) OT- Subjective Occupational Therapy Visit Type Type Treatment Note Visit Start Time 10:35 Visit Stop Time 10:43 Occupational Therapy Visit Comments Patient Comments Pt agreed to go over LB dressing equipment. Patient/Caregiver TO go home. Goals OT Pain Assessment Pain When Pain Assessed At Rest Pain Present Pain Present Pain Reported Location Abdomen Pain Behaviors Facial Grimacing,Holding Area M4 OT- IP ADL's Start: 04/03/25 14:44 Freq: Status: Active Protocol: Document 04/04/25 10:44 [facility] (Rec: 04/04/25 10:49 [facility] Desktop) OT [id number] Comments OT Self-Feeding NPO Comments OT ADL-Dressing General Eval Lower Body Dressing Minimal Assistance Ability Comments OT Dressing Comments Able to show and practice use of LB dressing equipment for pt. OT ADL-Toileting Comments OT Toileting Pt will benefit from BSC at home. Comments M5 OT- IP IADL's Start: 04/03/25 14:44 Freq: Status: Active Protocol: Document 04/03/25 14:44 [facility] (Rec: 04/03/25 14:57 [facility] Desktop) OT-Instrumental Activities of Daily Living Home Safety Awareness Awareness of Need Good Awareness for Assistance at Home Ability to Problem Able to Problem Solve Solve Emergency Situations Medication Management Medication No Deficits Identified Management Money Management Money Management No Deficits Identified Meal Preparation Meal Preparation Pt will need assist. Comments Ambulatory Technologist Ambulatory Technologist Pt will need assist. Comments M6 OT- IP Functional Cognition Start: 04/03/25 14:44 Freq: Status: Active Protocol: Document 04/04/25 10:44 [facility] (Rec: 04/04/25 10:49 [facility] Desktop) Cognitive Factors Limiting Selfcare Function Cognitive Comments Cognitive Assessment Able to demonstrate log rolling to pt and emphasize Comments technique with pt. M7 OT- IP Mobility and Balance Start: 04/03/25 14:44 Freq: Status: Active Protocol: Document 04/03/25 14:44 [facility] (Rec: 04/03/25 14:57 [facility] Desktop) OT-Transfer Assessment Sit to and From Stand Sit to and from Contact Guard Assistance Stand Transfers Transfer Ability Contact Guard Assistance Technique Transfer Destination Chair Transfer Technique Stand Step Pivot Devices Transfer Assistive Gait Belt,Front Wheeled Walker Devices Comments Mobility Comments CGA to stand and move in the room with FWW, limited by the NG tube. OT- Balance Assessment Sitting Balance and Reactions Static Sitting Normal Balance Ability Dynamic Sitting Good Balance Ability Standing Balance and Reactions Static Standing Good Balance Ability Dynamic Standing Fair Balance Ability M8 OT- IP Objective Assessments Start: 04/03/25 14:44 Freq: Status: Active Protocol: Document 04/03/25 14:44 [facility] (Rec: 04/03/25 14:57 [facility] Desktop) OT Gross Range of Motion Upper Extremity Range of Motion Assessment Within Functional Limits OT Strength Comments Strength Comments WFL for needs. OT- Coordination Assessment Comments Coordination Arthritis changes in hands. Pt states wear a finger Comments splint for right hand as has pain with movements in extension. M9 OT- IP Assessment and Plan Start: 04/03/25 14:44 Freq: Status: Active Protocol: Document 04/04/25 10:44 [facility] (Rec: 04/04/25 10:49 [facility] Desktop) OT Summary Assessment and Plan Potential Rehabilitation Good Potential Analytic Complexity Moderate at Evaluation Summary OT Impairments Pain,Balance,Functional Mobility,Grooming,Dressing, Toileting,Bathing,Toilet Transfers,Shower Transfers, Activity Tolerance Progress Towards Progressing Toward Goals,Slow Progress due to Pain,Slow Goals Progress due to Medical Issues,Slow Progress due to Activity Tolerance Assessment Summary Able to go over LB dressing equipment with pt and reiterate techniques for log rolling for pt. Pt to go home with 24/7 assist and home health when medically stable. Goals Self-Feeding Goal Independent Grooming Goal Independent Dressing Goal Independent Toileting Goal Independent Bathing Goal Independent Toilet Transfer Goal Independent Shower Transfer Goal Independent Days to Meet Goals 10 Frequency of Treatment Other frequency 5x/week Treatment Plan OT Treatment Plan ADL Training,Functional Mobility,Patient/Family Education,Discharge Planning Discharge Recommendations OT Discharge Home with 24/ Assist Available,Home Health Recommendations Transportation Needs Private Vehicle at Discharge
[2025-04-04] MEDS: MAGNESIUM HYDROXIDE 30 ML UDC PO (13:00)
[2025-04-04] MEDS: FLEETS ENEMA 1 EACH PR (13:00)
--- NOTE | 2025-04-04 15:10 | CM.DPC ---
DCP Cont: Per MD, very slowly advancing pt's diet and still has NGT in place and likely another couple days before stable for discharge. Per PT, recommending home with HH. Attempted to meet bedside with pt but entered room and pt on commode attempting bm. Due to triage needs, unable to go back and talk to her about HH yet today. PONCE Butts
[2025-04-04 15:57] LABS: PTT Partial Thromboplastin Tim 46 SECONDS (25.1-36.5)
[2025-04-04] MEDS: SODIUM CHLORIDE 0.9% 1,000 ML 100 ML IV (16:57)
--- NOTE | 2025-04-04 18:18 | PC.NURSE ---
Pt continues w/ NG, patent dark contents. SBA in room. Heparin gtt infusing as per orders. IVF NS infusing as per orders. Up in chair at intervals. Lg BM after enema. Midline incision intact. Call light w/in reach, pt calls appropriately for needs. Continue plan of care.
[2025-04-04 21:15] LABS: PTT Partial Thromboplastin Tim 51 SECONDS (25.1-36.5)
[2025-04-04] MEDS: HEPARIN DRIP 25,000 UNIT/500 ML IV.SOLN 11.975 UNIT IV (22:14)
[2025-04-05] VITALS (10 sets, daily range): BP systolic 114–134; BP diastolic 69–81; PULSE 65–123; RESP 16–18; TEMP 36.4–36.8; O2SAT 94–99
[2025-04-05] MEDS: SODIUM CHLORIDE 0.9% 1,000 ML 100 ML IV (02:02)
[2025-04-05 06:03] LABS: PTT Partial Thromboplastin Tim 47 SECONDS (25.1-36.5)
--- NOTE | 2025-04-05 06:35 | PM.PN.IH.1 ---
Subjective Subjective Date Patient Seen: 04/05/25 Time Patient Seen: 06:36 Interval history: POD#3 ex lap/CONY SBO, no bowel resection denies n/v NG removed today fleets yesterday produced smear AXR demonstrates severe constipation, stool loading H/O thyroidectomy in 1960s, on thyroid replacement, contributing to constipation Exam Vital Signs (past 8 hours): - 04/05/25 00:00 04/05/25 02:00 04/05/25 04:00 Temperature 98.2 F Pulse Rate 113 H Respiratory Rate 18 Blood Pressure 114/81 Pulse Oximetry 97 97 97 Oxygen Delivery Method Room Air Room Air Oxygen Flow Rate 0 Oxygen Delivery Method Room Air Oxygen Flow Rate 0 Const General: comfortable Orientation: alert, awake and oriented x3 Resp Effort & Inspection: normal respiratory effort and able to speak in complete sentences GI Palpation: soft (ND, approp tender, inc CDI) Extrem General: no pedal edema and no calf tenderness Objective Labs 04/03/25 06:14 04/03/25 06:14 Labs: Laboratory Results - last 24 hr 04/04/25 04/04/25 04/04/25 07:19 09:10 11:03 APTT 56 H D POC Whole Bld Glucose 112 H 105 H 04/04/25 04/04/25 04/04/25 15:00 16:04 20:43 APTT 46 H D POC Whole Bld Glucose 114 H 112 H 04/04/25 04/05/25 04/05/25 21:00 03:29 04:39 APTT 51 H 47 H POC Whole Bld Glucose 120 H PFS Medical History (Updated 04/05/25 @ 06:38 by Yung Howell MD) Atrial fibrillation Social History household members: spouse Smoking Status: Never smoker alcohol intake: current Assessment & Plan Assessment and plan (1) Small bowel obstruction: Status: Acute (2) Constipation: Qualifiers: Constipation type: unspecified constipation type Qualified Code(s): K59.00 - Constipation, unspecified Status: Acute Plan POD#3 ex lap/CONY, bowel resection not required NG out today, bloody NG drainage due to anticoagulation, hgb stable Start clears, adv as moshe, no carbonation OK to resume eliquis Resume home meds Severe constipation with significant stool loading, enemas without improvement, SSEs, disimpact, po MOM, mineral oil, resume thyroid replacement, hypothyroid contributing Time-Based Coding :: [TOTAL MINUTES] spent with patient and on the chart (including review of chart, obtaining history, exam, reviewing outside data, placing orders, documenting exam and treatment plan, and counseling patient) on [DATE]. [employer] Document charge(s): Yes Charge Codes Subsequent inpatient/observation care: [id number]
--- NOTE | 2025-04-05 07:08 | PM.PN.1 ---
Subjective Subjective Date Patient Seen: 04/05/25 Interval history: The pt is a 84 yo with a hx of a-fib on Eliquis, HTN, DM who presents to the ER tonight c/o one day hx of severe abd pain, generalized, constant, sharp. In the ER a CT of the abd was done that showed a loop of bowel concerning for ischemia. Gernal Surgery, Dr. Patel was consulted and took the pt to the OR for exp lab, KCentra given to reverse the Eliquis, the pt was seen post OP. She states that the pain is not severe presently. She does reports having a exp lab in 2017 due to a kinked bowel, she is also is seeing a GI doc for IBS. 04/03: She has had some bleeding from her IV site so the heparin will be stopped/held for another 12 hours. Her right hand is quite bruised. 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 Her at home has Parkinson's. She lives in [place] and attends with Dr. Bowers. The white blood count is 13.5. The blood pressure was 157/101. The glucose was 185 and the A1c was 6.5. 04/04: She has been back on heparin since last evening and has no current evidence of intolerance/bleeding. Surgery is following her and she continues with a nasogastric tube with abdominal x-rays today. She says that she is passing gas. Meds Home Medications and Allergies Home Medications ?Medication ?Instructions ?Recorded ?Confirmed ?Type calcium citrate (Calcitrate) 400 mg PO DAILY ##0 06/18/17 04/02/25 History estradiol 1 mg tablet (Estrace) 1 mg PO .every other ##0 06/18/17 04/02/25 History losartan 50 mg tablet 50 mg PO BID ##0 06/18/17 04/02/25 History omeprazole 20 mg capsule,delayed 20 mg PO EVERY OTHER DAY ##0 06/18/17 04/02/25 History release pravastatin 40 mg tablet 40 mg PO QPM ##0 06/18/17 04/02/25 History furosemide 20 mg tablet (Lasix) 20 mg PO DAILY #3 tabs 07/16/21 04/02/25 Rx apixaban 5 mg tablet (Eliquis) 5 mg PO BID 01/27/25 04/02/25 History carvedilol 12.5 mg tablet 12.5 mg PO BID 01/27/25 04/02/25 History metformin 500 mg tablet 500 mg PO BID 01/27/25 04/02/25 History potassium chloride 10 mEq 10 meq PO DAILY 01/27/25 04/02/25 History tablet,extended release rosuvastatin 40 mg tablet 40 mg PO DAILY 01/27/25 04/02/25 History spironolactone 25 mg tablet 25 mg PO DAILY 01/27/25 04/02/25 History cholecalciferol (vitamin D3) 50 2,000 unit PO BID 04/02/25 04/02/25 History mcg (2,000 unit) tablet (D3 DOTS) levothyroxine 75 mcg tablet 75 mcg PO DAILY 04/02/25 04/02/25 History multivitamin (Daily Multi-Vitamin 1 tab PO DAILY 04/02/25 04/02/25 History tablet) Assessment & Plan 1. SBO- POD#2 ex lap/CONY closed loop obstruction, no bowel resection Plan per surgery: -Continue NGT for now, await NG output reduction, bowel activity, less distention -Expected postop ileus -H/O constipation, hard stool palpable at surgery, plan enemas, may need to clear with oral agents once NG out -Nutrition - regular diet tolerated at home until yesterday, check nutrition labs, consider TPN if ileus prolonged 2. atrial fib- on tele, holding the Eliquis, on heparin drip on hold due to IV site bleeding, resumed 04/03 evening. 3. Dm- on accuchecks, insulin SS. Diet per surgery management. 4. HTN- Carvedilol, Lasix, Spironolactone, Kcl-on hold due to NG tube. Use IV/NG for treatment if blood pressure rises. 5. Hypothyroidism- Levothyroxine-on hold due to NG tube DVT prevention with SCD and Heparin/Apixaban when bleeding risk has diminished. Exam Vital Signs (past 8 hours): - 04/05/25 00:00 04/05/25 02:00 04/05/25 04:00 Temperature 98.2 F Pulse Rate 113 H Respiratory Rate 18 Blood Pressure 114/81 Pulse Oximetry 97 97 97 Oxygen Delivery Method Room Air Room Air Oxygen Flow Rate 0 Oxygen Delivery Method Room Air Oxygen Flow Rate 0 Objective Labs 04/03/25 06:14 04/03/25 06:14 Labs: Laboratory Results - last 24 hr 04/04/25 04/04/25 04/04/25 07:19 09:10 11:03 APTT 56 H D POC Whole Bld Glucose 112 H 105 H 04/04/25 04/04/25 04/04/25 15:00 16:04 20:43 APTT 46 H D POC Whole Bld Glucose 114 H 112 H 04/04/25 04/05/25 04/05/25 21:00 03:29 04:39 APTT 51 H 47 H POC Whole Bld Glucose 120 H [facility] Medical History (Updated 04/05/25 @ 06:38 by Yung Howell MD) Atrial fibrillation Social History household members: spouse Smoking Status: Never smoker alcohol intake: current Assessment & Plan Time-Based Coding :: [TOTAL MINUTES] spent with patient and on the chart (including review of chart, obtaining history, exam, reviewing outside data, placing orders, documenting exam and treatment plan, and counseling patient) on [DATE].
[2025-04-05 08:20] LABS: Add Manual Diff / Slide Review NO; Hematocrit 31.3 % (36-46); Hemoglobin 10.6 g/dL (12.0-16.0); Lymphocytes Absolute Auto 800 /uL (1100-4500); Mean Corpuscular HGB Conc 33.8 % (30-36); Mean Corpuscular Hemoglobin 30.4 PG (26-34); Mean Corpuscular Volume 89.7 fL (80-100); Platelet Count 216 X10^3/uL (150-400)
[2025-04-05 08:23] LABS: Albumin 3.3 g/dL (3.5-5.0); Blood Urea Nitrogen 21 mg/dL (7-17); Calcium 7.7 mg/dL (8.4-10.2); Carbon Dioxide 19 mmol/L (22-32); Chloride 110 mmol/L (98-107); Estimated Glomerular Filt Rate > 60 mL/min (>60); Glucose 124 mg/dL (70-99); HEMOLYSIS < 15 (0-50); Phosphorous 3.5 mg/dL (2.8-4.1); Potassium 3.7 mmol/L (3.4-5.1); Sodium 141 mmol/L (137-145)
[2025-04-05] MEDS: POTASSIUM CHLORIDE 10 MEQ TAB PO (09:41)
[2025-04-05] MEDS: ACETAMINOPHEN 325 MG TABLET 650 MG PO (09:41)
[2025-04-05] MEDS: FUROSEMIDE 20 MG TABLET PO (09:42)
[2025-04-05] MEDS: CALCIUM CARBONATE 500 MG TAB PO (09:42)
[2025-04-05] MEDS: LOSARTAN 50 MG TABLET PO ×2 (09:42→21:54)
[2025-04-05] MEDS: APIXABAN 5 MG TABLET PO ×2 (09:42→21:55)
[2025-04-05] MEDS: CHOLECALCIFEROL (VITAMIN D3) 1,000 UNIT TABLET 2000 UNIT PO ×2 (09:42→21:55)
[2025-04-05] MEDS: MULTIVITAMIN 1 TABLET 1 TAB PO (09:42)
[2025-04-05] MEDS: MAGNESIUM HYDROXIDE 30 ML UDC PO (09:44)
--- NOTE | 2025-04-05 10:34 | P.PN_ITS ---
Subjective Subjective Date Patient Seen: 04/05/25 Time Patient Seen: 12:15 Interval history: The pt is a 84 yo with a hx of a-fib on Eliquis, HTN, DM who presents to the ER tonight c/o one day hx of severe abd pain, generalized, constant, sharp. In the ER a CT of the abd was done that showed a loop of bowel concerning for ischemia. Gernal Surgery, Dr. Patel was consulted and took the pt to the OR for exp lab, KCentra given to reverse the Eliquis, the pt was seen post OP. She states that the pain is not severe presently. She does reports having a exp lab in 2017 due to a kinked bowel, she is also is seeing a GI doc for IBS. 04/03: She has had some bleeding from her IV site so the heparin will be stopped/held for another 12 hours. Her right hand is quite bruised. 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 Her at home has Parkinson's. She lives in [place] and attends with Dr. Bowers. The white blood count is 13.5. The blood pressure was 157/101. The glucose was 185 and the A1c was 6.5. 04/04: She has been back on heparin since last evening and has no current evidence of intolerance/bleeding. Surgery is following her and she continues with a nasogastric tube with abdominal x-rays today. She says that she is passing gas. 04/05: NGT removed this morning. She notes a small bowel movement and is on a clear liquid diet. No new issues. She has been up walking in the room. Meds Home Medications and Allergies Home Medications ?Medication ?Instructions ?Recorded ?Confirmed ?Type calcium citrate (Calcitrate) 400 mg PO DAILY ##0 06/18/17 04/02/25 Hi story estradiol 1 mg tablet (Estrace) 1 mg PO .every other ##0 06/18/17 History losartan 50 mg tablet 50 mg PO BID ##0 06/18/17 04/02/25 Histo ry omeprazole 20 mg capsule,delayed 20 mg PO EVERY OTHER DAY ##0 06/18/17 History release pravastatin 40 mg tablet 40 mg PO QPM ##0 12/09/17 09/23/25 Histo ry furosemide 20 mg tablet (Lasix) 20 mg PO DAILY #3 tabs 07/16/21 04/02/25 Rx apixaban 5 mg tablet (Eliquis) 5 mg PO BID 01/27/25 04/02/25 History carvedilol 12.5 mg tablet 12.5 mg PO BID 01/27/25 04/02/25 History metformin 500 mg tablet 500 mg PO BID 01/27/25 04/02/25 History potassium chloride 10 mEq 10 meq PO DAILY 01/27/25 04/02/25 Histor y tablet,extended release rosuvastatin 40 mg tablet 40 mg PO DAILY 01/27/25 04/02/25 History spironolactone 25 mg tablet 25 mg PO DAILY 01/27/25 04/02/25 History cholecalciferol (vitamin D3) 50 2,000 unit PO BID 04/02/25 04/02/25 Hist ory mcg (2,000 unit) tablet (D3 DOTS) levothyroxine 75 mcg tablet 75 mcg PO DAILY 04/02/25 04/02/25 Histor y multivitamin (Daily Multi-Vitamin 1 tab PO DAILY 04/02/25 04/02/25 History tablet) Assessment & Plan 1. SBO- POD#3 ex lap/CONY closed loop obstruction, no bowel resection Plan per surgery: -NGT out today per surgery -postop ileus resolving -clear liquid diet -H/O constipation, hard stool palpable at surgery, continue enemas, MOM, mineral oil -Nutrition - clear liquid diet as tolerated 2. atrial fib- on tele, holding the Eliquis, on heparin drip on hold due to IV site bleeding, resumed 04/03 evening. 3. Dm- on accuchecks, insulin SS. Well-controlled. Diet per surgery management. 4. HTN- Carvedilol, losartan, Lasix, Spironolactone, Kcl restarted. 5. Hypothyroidism- Levothyroxine-resume oral medication DVT prevention with SCD and Apixaban Exam Vital Signs (past 8 hours): - 04/05/25 04:00 Pulse Oximetry 97 Oxygen Delivery Method Room Air Oxygen Delivery Method Room Air Oxygen Flow Rate 0 Narrative Exam Narrative: Alert and oriented x3. Moderate distress from continued NG tube. Abdomen is distended, soft, with bowel sounds heard. Nasogastric tube in the left nostril Heart is irregularly irregular without murmur Lungs are clear to auscultation bilaterally There is no ankle edema. Objective Imaging Abdomen xray 04/04/2025:: Radiologist's impression: INDICATIONS: Abd distention after SBO surgery TECHNIQUE: 2 views of the abdomen were acquired. COMPARISON: [facility], CT, CT ABDOMEN PELVIS W CON, 04/02/2025, 17:24. FINDINGS: Surgical changes and devices: Enteric tube in place with tip and side port projecting over the expected location of the stomach. Bowel: No pneumoperitoneum. The bowel gas pattern is normal. Prominent stool burden. Soft tissues: No masses; visualized solid organ contours appear normal in size. No suspicious abdominal calcifications. Bones: No suspicious bony abnormalities. IMPRESSION: Non-obstructive bowel gas pattern. Prominent stool burden. Labs 04/05/25 04:39 04/05/25 04:39 Labs: Laboratory Results - last 24 hr 04/04/25 04/04/25 04/04/25 11:03 15:00 16:04 WBC RBC Hgb Hct MCV MCH MCHC RDW Plt Count Neut % (Auto) Lymph % (Auto) [place] % (Auto) Eos % (Auto) Baso % (Auto) Neut # (Auto) Lymph # (Auto) [place] # (Auto) Eos # (Auto) Baso # (Auto) APTT 46 H D Sodium Potassium Chloride Carbon Dioxide BUN Creatinine Estimated GFR BUN/Creatinine Ratio Glucose POC Whole Bld Glucose 105 H 114 H Calcium Phosphorus Albumin 04/04/25 04/04/25 04/05/25 20:43 21:00 03:29 WBC RBC Hgb Hct MCV MCH MCHC RDW Plt Count Neut % (Auto) Lymph % (Auto) [place] % (Auto) Eos % (Auto) Baso % (Auto) Neut # (Auto) Lymph # (Auto) [place] # (Auto) Eos # (Auto) Baso # (Auto) APTT 51 H Sodium Potassium Chloride Carbon Dioxide BUN Creatinine Estimated GFR BUN/Creatinine Ratio Glucose POC Whole Bld Glucose 112 H 120 H Calcium Phosphorus Albumin 04/05/25 04/05/25 04:39 07:27 WBC 11.9 H RBC 3.49 L Hgb 10.6 L Hct 31.3 L MCV 89.7 MCH 30.4 MCHC 33.8 RDW 14.7 Plt Count 216 Neut % (Auto) 82.6 H Lymph % (Auto) 6.8 L [place] % (Auto) 10.2 Eos % (Auto) 0.1 L Baso % (Auto) 0.3 Neut # (Auto) 9900 H Lymph # (Auto) 800 L [place] # (Auto) 1200 H Eos # (Auto) 0 Baso # (Auto) 0 APTT 47 H Sodium 141 Potassium 3.7 Chloride 110 H Carbon Dioxide 19 L BUN 21 H Creatinine 0.84 Estimated GFR > 60 BUN/Creatinine Ratio 25.0 H Glucose 124 H POC Whole Bld Glucose 128 H Calcium 7.7 L Phosphorus 3.5 Albumin 3.3 L PFSH Medical History (Updated 04/05/25 @ 06:38 by Yung Howell MD) Atrial fibrillation Social History household members: spouse Smoking Status: Never smoker alcohol intake: current [employer] Document charge(s): No Charge Codes Subsequent inpatient/observation care: [id number]
[2025-04-05] MEDS: INSULIN LISPRO 100 UNIT/ML 3ML VIAL SUBCUT ×2 (12:11→17:38)
--- NOTE | 2025-04-05 13:48 | OT.IPNOTE ---
Pt on the phone and states has been up and down for toileting often today. Reminded pt for equipment needs at home. NO charge.
--- NOTE | 2025-04-05 14:35 | PT.IPTN ---
Current Diagnoses Unspecified intestinal obstruction, unspecified as to partial versus complete obstruction (04/02/25) Constipation, unspecified (04/02/25) Surgery Performed Operation Date: 04/02/25 20:00 Actual Procedures p Exploratory Laparotomy GEN Lysis of Adhesions(Not Applicable) - Yung Howell MD Physical Therapy Treatment Note M2 PT-IP Current Condition Start: 04/03/25 16:10 Freq: NEEDED Status: Active Protocol: Document 04/03/25 13:55 AB (Rec: 04/03/25 16:27 AB [id number]) Physical Therapy Current Condition Current Condition Evaluation Date 04/03/25 Treatment Diagnosis SBO s/p ex-lap; difficulty in walking Onset Date 04/02/25 M3 PT-IP Subjective Start: 04/03/25 16:10 Freq: NEEDED Status: Active Protocol: Document 04/05/25 14:35 AB (Rec: 04/05/25 17:37 AB [id number]) Subjective Physical Therapy Visit Type Type Treatment Note Visit Start Time 14:35 Visit Stop Time 15:00 Number of TRAIN GATE ATTENDANT Visits 0 Physical Therapy Visit Comments Patient Comments agreeable to do PT Therapy Pain Assessment Pain When Pain Assessed At Rest Pain Present Pain Present Pain Reported Location Abdomen Scale Used pain scale not stated Description Tender,Tightness Pain Management Distraction,Modification of Treatment Techniques M4 PT-IP Mobility and Gait Start: 04/03/25 16:10 Freq: NEEDED Status: Active Protocol: Document 04/05/25 14:35 AB (Rec: 04/05/25 17:37 AB [id number]) PT-Transfer Assessment Sit to and From Stand Sit to and from Contact Guard Assistance,1 Person Assistance,Use of Stand Upper Extremities Equipment Transfer Assistive Gait Belt,Front Wheeled Walker Device Orthotic/Prosthetic No Devices or Brace: Comments Mobility Comments pt sitting on the chair and agreeable to do PT. sit to stand CGA and ambulated in room ~ 50 ft using FWW CGA. completed up/down step stool x 2 sets holding on to side of door for support min A and cues. pt ambulated more in room afterwards ~ 50 ft FWW CGA and completed up/down step stool again x 2 min A and cues. pt sat back on chair. positioned pt on the chair. call light and table placed within reach. Gait Assessment Gait Gait Assistance Contact Guard Assist Required: Distance (Feet) 50 Able to Maintain Yes Weight Bearing Status During Gait Assistive Devices Assistive Device Gait Belt,Front Wheeled Walker Orthotic/Prosthetic No Devices or Brace: Gait Deviations General Gait Pattern Decreased Stride Length,Decreased Feet Clearance Factors Limiting Gait Function Factors Limiting Decreased Activity Tolerance,Decreased Strength, Gait Function Difficulty Following Directions,Limited Range of Motion ,Pain,Poor Balance Stair Climbing Assessment Evaluation Level of Assist On Minimal Assistance Stairs Devices Stair Climbing Left Railing,Right Railing Assistive Devices Technique/Endurance Stair Climbing Ascend and Descend Direction Stair Climbing Step to Step Technique Number of Steps 1 Climbed Stair Climbing Set # 4 Repetitions (reps) M5 PT-IP Objective Assessments Start: 04/03/25 16:10 Freq: NEEDED Status: Active Protocol: Document 04/03/25 13:55 AB (Rec: 04/03/25 16:27 AB [id number]) Orientation Orientation/Cognition Level of Alertness Alert Orientation Name,Place,Situation Language Function No Deficits Noted Ability Safety Awareness Decreased Safety Awareness Memory Description No Deficits Noted Gross Range of Motion Lower Extremity ROM Assessment Within Functional Limits Strength Comments Strength Comments LLE: 4+/5 RLE: 4/5 Coordination Assessment Gross Coordination Gross Coordination WNL Sensation Assessment Sensation Gross Sensation WNL Muscle Tone Muscle Tone WNL Yes M6 PT-IP Treatment Start: 04/03/25 16:10 Freq: NEEDED Status: Active Protocol: Document 04/05/25 14:35 AB (Rec: 04/05/25 17:37 AB [id number]) Physical Therapy Treatment Education Education Provided Precautions,Safety M7 PT-IP Assessment and Plan Start: 04/03/25 16:10 Freq: NEEDED Status: Active Protocol: Document 04/05/25 14:35 AB (Rec: 04/05/25 17:37 AB [id number]) PT Summary Assessment and Plan Potential Rehabilitation Good Potential Summary Impairments Pain,ROM,Strength,Balance,Coordination,Sensation,Tone, Cognition,Bed Mobility,Transfers,Gait,Activity Tolerance Progress Towards Slow Progress due to Pain,Slow Progress due to Medical Goals Issues Assessment Summary pt progressing with mobility and able to ambulate ~ 50 ft using FWW CGA. pt plans to go home and will have her family to assist her at home. pt stated that her son will stay with her to assist her and her spouse. pt will benefit from HHPT. Goals Bed Mobility Goal Independent Transfer Goal Independent,Front Wheeled Walker Gait Goal Independent,Front Wheel Walker Gait Distance 100 Other Goals improve transfers and ambulation using LRAD/without AD ~ 200 ft SBA up/down 2 steps R rail ascending SBA Days to Meet Goals 10 Frequency of Treatment Frequency Of Once a Day Treatment Treatment Plan Physical Therapy Bed Mobility Training,Transfer Training,Gait Training, Treatment Plan Therapeutic Exercise,Balance Retraining,Post Op Education,Discharge Planning,Neuromuscular Re-ed Precautions Abdominal Surgery Log Roll,Lifting Restrictions,Gait Belt above Precautions Incisional Area Recommendations To Nursing Amount of Assist 1 Person Assist Needed Discharge Recommendations PT Discharge Home with Assistance,Home Health Recommendations Transportation Needs Private Vehicle at Discharge - PT assist 1
[2025-04-05] MEDS: ATORVASTATIN 20 MG TABLET 80 MG PO (21:55)
[2025-04-05] MEDS: SODIUM CHLORIDE 0.9% FLUSH 10 ML IV (21:55)
[2025-04-06 03:00] VITALS: BP 122/67; PULSE 74; RESP 18; TEMP 36.6; O2SAT 97
[2025-04-06 04:00] VITALS: O2SAT 99
[2025-04-06] MEDS: LEVOTHYROXINE 75 MCG TABLET PO (06:03)
[2025-04-06] MEDS: PANTOPRAZOLE DR 20 MG TABLET PO (06:03)
--- NOTE | 2025-04-06 08:39 | PM.PN.IH.1 ---
Subjective Subjective Date Patient Seen: 04/06/25 Time Patient Seen: 08:15 Interval history: The pt is a 84 yo with a hx of a-fib on Eliquis, HTN, DM who presents to the ER tonight c/o one day hx of severe abd pain, generalized, constant, sharp. In the ER a CT of the abd was done that showed a loop of bowel concerning for ischemia. Gernal Surgery, Dr. Patel was consulted and took the pt to the OR for exp lab, KCentra given to reverse the Eliquis, the pt was seen post OP. She states that the pain is not severe presently. She does reports having a exp lab in 2017 due to a kinked bowel, she is also is seeing a GI doc for IBS. 04/03: She has had some bleeding from her IV site so the heparin will be stopped/held for another 12 hours. Her right hand is quite bruised. 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 Her at home has Parkinson's. She lives in [place] and attends with Dr. Bowers. The white blood count is 13.5. The blood pressure was 157/101. The glucose was 185 and the A1c was 6.5. 04/04: She has been back on heparin since last evening and has no current evidence of intolerance/bleeding. Surgery is following her and she continues with a nasogastric tube with abdominal x-rays today. She says that she is passing gas. 04/05: NGT removed this morning. She notes a small bowel movement and is on a clear liquid diet. No new issues. She has been up walking in the room. 04/06: Patient states she has only had a small bowel movement yesterday. She feels that she is significantly constipated still. She plans to to take milk of magnesia this morning. She states she is eaten very little of her clear liquid diet. Meds Home Medications and Allergies Home Medications ?Medication ?Instructions ?Recorded ?Confirmed ?Type calcium citrate (Calcitrate) 400 mg PO DAILY ##0 06/18/17 04/02/25 History estradiol 1 mg tablet (Estrace) 1 mg PO .every other ##0 06/18/17 04/02/25 History losartan 50 mg tablet 50 mg PO BID ##0 06/18/17 04/02/25 History omeprazole 20 mg capsule,delayed 20 mg PO EVERY OTHER DAY ##0 06/18/17 04/02/25 History release pravastatin 40 mg tablet 40 mg PO QPM ##0 06/18/17 04/02/25 History furosemide 20 mg tablet (Lasix) 20 mg PO DAILY #3 tabs 07/16/21 04/02/25 Rx apixaban 5 mg tablet (Eliquis) 5 mg PO BID 01/27/25 04/02/25 History carvedilol 12.5 mg tablet 12.5 mg PO BID 01/27/25 04/02/25 History metformin 500 mg tablet 500 mg PO BID 01/27/25 04/02/25 History potassium chloride 10 mEq 10 meq PO DAILY 01/27/25 04/02/25 History tablet,extended release rosuvastatin 40 mg tablet 40 mg PO DAILY 01/27/25 04/02/25 History spironolactone 25 mg tablet 25 mg PO DAILY 01/27/25 04/02/25 History cholecalciferol (vitamin D3) 50 2,000 unit PO BID 04/02/25 04/02/25 History mcg (2,000 unit) tablet (D3 DOTS) levothyroxine 75 mcg tablet 75 mcg PO DAILY 04/02/25 04/02/25 History multivitamin (Daily Multi-Vitamin 1 tab PO DAILY 04/02/25 04/02/25 History tablet) Assessment & Plan 1. SBO- POD#4 ex lap/CONY closed loop obstruction, no bowel resection Plan per surgery: -NGT out 04/05 per surgery -postop ileus resolving -clear liquid diet, advancing per surgery -discharge timing per surgery 2. Severe chronic constipation, lifelong, hard stool palpable at surgery -continue enemas, MOM, mineral oil -Start Miralax daily 04/06, continue for maintainance program at discharge 2. atrial fib- on tele, rate controlled, continuing Eliquis. 3. Dm- on accuchecks, insulin SS. Well-controlled. Diet per surgery management. 4. HTN- Carvedilol, losartan, Lasix, Spironolactone, Kcl. 5. Hypothyroidism- Levothyroxine. DVT prevention with SCD and Apixaban Exam Vital Signs (past 8 hours): - 04/06/25 03:00 04/06/25 04:00 Temperature 97.8 F Pulse Rate 74 Respiratory Rate 18 Blood Pressure 122/67 Pulse Oximetry 97 99 Oxygen Delivery Method Room Air Oxygen Flow Rate 0 Oxygen Delivery Method Room Air Oxygen Flow Rate 0 Narrative Exam Narrative: Alert and oriented x 3. Moderate distress from continued NG tube. Abdomen is protuberant, nontender, mildly distended, soft, with bowel sounds heard. Heart is irregularly irregular without murmur Lungs are clear to auscultation bilaterally There is no ankle edema. Objective Labs 04/05/25 04:39 04/05/25 04:39 Labs: Laboratory Results - last 24 hr 04/05/25 04/05/25 04/05/25 04:39 11:35 16:42 Sodium 141 Potassium 3.7 Chloride 110 H Carbon Dioxide 19 L BUN 21 H Creatinine 0.84 Estimated GFR > 60 BUN/Creatinine Ratio 25.0 H Glucose 124 H POC Whole Bld Glucose 209 H 217 H Calcium 7.7 L Phosphorus 3.5 Albumin 3.3 L 04/05/25 04/06/25 20:38 07:47 Sodium Potassium Chloride Carbon Dioxide BUN Creatinine Estimated GFR BUN/Creatinine Ratio Glucose POC Whole Bld Glucose 140 H 117 H Calcium Phosphorus Albumin [facility] Medical History (Updated 04/05/25 @ 06:38 by Yung Howell MD) Atrial fibrillation Social History household members: spouse Smoking Status: Never smoker alcohol intake: current 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
[2025-04-06] MEDS: LOSARTAN 50 MG TABLET PO ×2 (10:32→21:43)
[2025-04-06] MEDS: CALCIUM CARBONATE 500 MG TAB PO (10:32)
[2025-04-06] MEDS: SPIRONOLACTONE 25 MG TABLET PO (10:32)
[2025-04-06] MEDS: APIXABAN 5 MG TABLET PO ×2 (10:32→21:44)
[2025-04-06] MEDS: CHOLECALCIFEROL (VITAMIN D3) 1,000 UNIT TABLET 2000 UNIT PO ×2 (10:32→21:44)
[2025-04-06] MEDS: FUROSEMIDE 20 MG TABLET PO (10:32)
[2025-04-06] MEDS: MULTIVITAMIN 1 TABLET 1 TAB PO (10:33)
[2025-04-06] MEDS: POTASSIUM CHLORIDE 10 MEQ TAB PO (10:33)
[2025-04-06] MEDS: SODIUM CHLORIDE 0.9% FLUSH 10 ML IV ×2 (10:34→21:45)
--- NOTE | 2025-04-06 10:35 | DI.RAD.S_ITS ---
PROCEDURE: XR ABDOMEN MIN 2V INDICATIONS: Assess stool loading progress after enemas TECHNIQUE: 2 views of the abdomen were acquired. COMPARISON: [facility], CR, XR ABDOMEN MIN 2V, 04/04/2025, 10:43. FINDINGS: Surgical changes and devices: Right breast clips are seen. Bowel: No pneumoperitoneum. The bowel gas pattern is normal. No abnormal volume of stool can be seen within the colon. Soft tissues: No masses; visualized solid organ contours appear normal in size. No suspicious abdominal calcifications. Bones: No suspicious bony abnormalities. Age-appropriate bony degenerative changes are seen. Mild dextroconvex scoliotic curvature is seen. IMPRESSION: No abnormal stool volume can be seen within the colon. Dictated by: eJse Trotter M.D. on 04/06/2025 at 12:08 Approved by: Jese Trotter M.D. on 04/06/2025 at 12:09
[2025-04-06] MEDS: MINERAL OIL 30 ML UDC PO (10:43)
--- NOTE | 2025-04-06 10:52 | P.PN_ITS ---
Subjective Subjective Date Patient Seen: 04/06/25 Time Patient Seen: 10:52 Interval history: POD#4 ex lap/CONY Large volume stool with SSEs Denies n/v Tolerating clears Exam Vital Signs (past 8 hours): - 04/06/25 03:00 04/06/25 04:00 Temperature 97.8 F Pulse Rate 74 Respiratory Rate 18 Blood Pressure 122/67 Pulse Oximetry 97 99 Oxygen Delivery Method Room Air Oxygen Flow Rate 0 Oxygen Delivery Method Room Air Oxygen Flow Rate 0 Const General: comfortable Orientation: alert, awake and oriented x3 Resp Effort & Inspection: normal respiratory effort and able to speak in complete sentences Cardio Rate: regular rate GI Other: ABD: incision CDI, still distended, +tympany although improved, tenderness appropriate for postop Extrem General: no pedal edema and no calf tenderness Objective Labs 04/05/25 04:39 04/05/25 04:39 Labs: Laboratory Results - last 24 hr 04/05/25 04/05/25 04/05/25 11:35 16:42 20:38 POC Whole Bld Glucose 209 H 217 H 140 H 04/06/25 07:47 POC Whole Bld Glucose 117 H [facility] Medical History (Updated 04/05/25 @ 06:38 by Yung Howell MD) Atrial fibrillation Social History household members: spouse Smoking Status: Never smoker alcohol intake: current Assessment & Plan Assessment and plan (1) Small bowel obstruction: Status: Acute (2) Constipation: Qualifiers: Constipation type: unspecified constipation type Qualified Code(s): K 59.00 - Constipation, unspecified Status: Acute Plan POD#4 ex lap/CONY tolerating clears, advance diet Large volume stool with SSEs, check AXR to assess stool load Possible home tomorrow Eliquis restarted without clinical bleeding Time-Based Coding :: [TOTAL MINUTES] spent with patient and on the chart (including review of chart, obtaining history, exam, reviewing outside data, placing orders, documenting exam and treatment plan, and counseling patient) on [DATE]. 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
[2025-04-06 12:00] VITALS: O2SAT 97
--- NOTE | 2025-04-06 12:21 | PT-IP ANOTE ---
checked on pt this morning and pt refused PT. pt stated that she is going to go for a scan later this morning and is focusing on using the toilet and does not want to do PT at this time.
[2025-04-06] MEDS: INSULIN LISPRO 100 UNIT/ML 3ML VIAL SUBCUT ×2 (13:28→18:00)
--- NOTE | 2025-04-06 15:53 | PT-IP ANOTE ---
checked on pt again this afternoon and stated that she already gotten her scan and everything is ok but still does not want to do PT. pt stated that she has been walking in the room and does not want to walk or do stairclimbing today
[2025-04-06 16:00] VITALS: O2SAT 95
[2025-04-06 20:00] VITALS: BP 135/67; PULSE 76; RESP 16; TEMP 36.6; O2SAT 98
[2025-04-06] MEDS: ATORVASTATIN 20 MG TABLET 80 MG PO (21:42)
[2025-04-06 21:43] VITALS: BP 135/67; PULSE 76
[2025-04-07 02:00] VITALS: BP 132/64; PULSE 83; RESP 13; TEMP 36.6; O2SAT 97
[2025-04-07 04:00] VITALS: O2SAT 97
[2025-04-07] MEDS: LEVOTHYROXINE 75 MCG TABLET PO (06:32)
--- NOTE | 2025-04-07 07:30 | PM.DS.IH.1 ---
History of Present Illness History of Present Illness Date Patient Seen: 04/07/25 Time Patient Seen: 07:31 Chief complaint: abd pain since am,nausea Narrative: Patient presented to ED with abd pain. CT demonstrates closed loop obstruction with ischemic bowel. Patient had untwisting surgery done at in the past via low midline incision. Patient on Eliquis for afib, plan to reverse with Priya, d/w pharmacist. Urgent laparotomy tonight for bowel resection. Discharge Providers Provider Date of admission: 04/02/25 19:25 Discharge Date: 04/07/25 Primary care physician: Robert Mcfarlane MD Consults: 04/02/25 20:55 Consult to Occupational Therapy Evaluate & Treat Comment: Physician Instructions: Evaluate and treat Consult to Physical Therapy Evaluate & Treat Comment: Physician Instructions: Evaluate and Treat Consult to Physician Routine Comment: Consulting Provider: Russel Patel Reason for consultation: SBO Has provider been notified: Yes 04/05/25 15:24 Consult to Home Health Routine Comment: RN, PT, HH Aide Reason For Exam: SBO, s/p Laparotomy and fixation 04/05/25 18:52 Consult to Pharmacy Routine Comment: Assessed as high risk. 04/06/25 19:53 Consult to Pharmacy Routine Comment: Assessed as high risk Discharge provider: Yung Howell MD Summary Hospital Course Discharge Diagnosis: SBO due to adhesions. Hospital Course: Patient admitted through ED with closed loop obstruction. Taken urgently to OR where closed loop obstruction from single adhesive band discovered. No bowel resection required. Colon noted to be redundant and extremely mobile. 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 NG able to be removed two days later and tolerated clears. Patient noted to be severely constipated at surgery. Enemas produced little results so soap suds ordered with MOM, mineral oil and this produce large volume stool. H/O thyroidectomy/hypothyroidism. Thyroid replacement restarted once NG out. Takes eliquis for afib. Reversed with KCentra in ED for surgery, heparin gtt postop and po eliquis resumed in hospital without evidence for bleeding. She did have bleeding from IV site and bloody NG drainage that responded to holding heparin gtt, hgb stable. Tolerated regular diet prior to discharge. She will see her PCP and make sure her colonoscopy screening is up to date. She will see me in office. Postop instructions given. Status at Discharge Cognitive/behavioral status at discharge: oriented Functional status at discharge: independent ambulation Overall status at discharge: patient is progressing back to baseline Time Spent with Patient Time spent: Greater than 30 minutes Exam Vital Signs (past 8 hours): - 04/07/25 02:00 04/07/25 04:00 Temperature 97.9 F Pulse Rate 83 Respiratory Rate 13 Blood Pressure 132/64 Pulse Oximetry 97 97 Oxygen Delivery Method Room Air Oxygen Flow Rate 0 Oxygen Delivery Method Room Air Oxygen Flow Rate 0 Const General: comfortable Orientation: alert and oriented x3 Resp Effort & Inspection: normal respiratory effort and able to speak in complete sentences Cardio Rate: regular rate GI Other: ABD: soft, less distended, wound CDI, tenderness appropriate for postop Extrem General: no pedal edema and no calf tenderness Objective Labs 04/05/25 04:39 04/05/25 04:39 Labs: Laboratory Results - last 24 hr 04/06/25 04/06/25 04/06/25 07:47 12:59 16:33 POC Whole Bld Glucose 117 H 158 H 141 H 04/06/25 19:27 POC Whole Bld Glucose 171 H PFSH Medical History (Updated 04/05/25 @ 06:38 by Yung Howell MD) Atrial fibrillation Social History household members: spouse Smoking Status: Never smoker alcohol intake: current Discharge Assessment & Plan Assessment and Plan Assessment: SBO, s/o ex lap, CONY, no bowel resection required Severe constipation Afib, on eliquis Hypothyroid Plan of Treatment: Home today F/U PCP F/U general surgery clinic Regular (low residue) diet Constipation management with daily miralax Make sure colonoscopy screening up to date Discharge Plan Discharge Plan Patient Disposition: Home Provider Discharge Comment: See your PCP after discharge Make sure your colonoscopy screening is up to date Eat a low residue diet (low fiber) while your small intestine is recovered, but then get plenty of fiber in your diet from fruits and vegetables to reduce constipation Take miralax once or twice daily and drink plenty of water to reduce constipation You should have 1-2 soft stools per day, anything less is constipation Take prescribed vicodin as needed, you may only need Tylenol or ibuprofen No lifting for 6 weeks to reduce hernia in incision Shower OK, no swimming for 2 weeks Discharge orders & Medications Prescriptions: New hydrocodone-acetaminophen 5-325 mg tablet 1 tab PO Q4H PRN (Reason: pain) Qty: 10 0RF Continued losartan 50 MG tablet 50 mg PO BID Qty: 0 pravastatin 40 MG tablet 40 mg PO QPM Qty: 0 omeprazole 20 MG capsule,delayed release(DR/EC) 20 mg PO EVERY OTHER DAY Qty: 0 calcium citrate [Calcitrate] 200 mg (950 mg) tablet 400 mg PO DAILY Qty: 0 estradiol [Estrace] 1 mg tablet 1 mg PO .every other Qty: 0 Patient Comments: pt take once every 3 days furosemide [Lasix] 20 mg tablet 20 mg PO DAILY Qty: 3 0RF metformin 500 mg tablet 500 mg PO BID carvedilol 12.5 mg tablet 12.5 mg PO BID potassium chloride 10 mEq tablet extended release 10 meq PO DAILY spironolactone 25 mg tablet 25 mg PO DAILY rosuvastatin 40 mg tablet 40 mg PO DAILY Eliquis 5 mg tablet 5 mg PO BID multivitamin [Daily Multi-Vitamin] Tablet 1 tab PO DAILY cholecalciferol (vitamin D3) [D3 DOTS] 50 mcg (2,000 unit) tablet 2,000 unit PO BID levothyroxine 75 mcg tablet 75 mcg PO DAILY Follow up/Referrals: Robert Mcfarlane MD [Primary Care Provider, Family Practice] Yung Howell MD [Physician, General Surgery] Diet/Activity/Treatments Diet: Diet as Tolerated Diet comment: Low residue for now to recover small intestine, then add fiber for constip Skin/Wound/Dressing Care Report to your healthcare provider any signs of infection, such as:: chills, fever, night sweats, increased pain, unusual drainage and unusual redness Visit Report/Discharge Packet Instructions: DI for Prescription Opioid Use Stand Alone Forms: Patient Portal/API, Stroke Signs & Symptoms Discharge Data Primary Care Provider: Robert Mcfarlane PROFEE Charge Codes Discharge inpatient/observation: [id number]
[2025-04-07 08:00] VITALS: O2SAT 97
[2025-04-07] MEDS: CHOLECALCIFEROL (VITAMIN D3) 1,000 UNIT TABLET 2000 UNIT PO (09:51)
[2025-04-07 09:52] VITALS: BP 154/73; PULSE 84
[2025-04-07] MEDS: MULTIVITAMIN 1 TABLET 1 TAB PO (09:52)
[2025-04-07] MEDS: LOSARTAN 50 MG TABLET PO (09:52)
[2025-04-07] MEDS: POTASSIUM CHLORIDE 10 MEQ TAB PO (09:52)
[2025-04-07] MEDS: CALCIUM CARBONATE 500 MG TAB PO (09:53)
[2025-04-07 09:54] VITALS: BP 154/73; PULSE 84
[2025-04-07] MEDS: SODIUM CHLORIDE 0.9% FLUSH 10 ML IV (09:54)
[2025-04-07] MEDS: SPIRONOLACTONE 25 MG TABLET PO (09:54)
[2025-04-07] MEDS: FUROSEMIDE 20 MG TABLET PO (09:54)
[2025-04-07] MEDS: APIXABAN 5 MG TABLET PO (09:54)
--- NOTE | 2025-04-07 11:47 | CM.DPNOTE ---
DCP note CLINICAL TRIAL SPECIALIST reviewed EMR pt cleared to dc home today. rec HH. per CM notes [facility] previously established. CLINICAL TRIAL SPECIALIST met with pt in room. pt now refusing HH saying she does not need it. CLINICAL TRIAL SPECIALIST gave brochure and told her if she changes her mind to contact PCP. pt expressed understanding. Friend can transport her home but not until 2pm after mormon. Son will come stay with her and spouse in home as well to assist with recovery. CLINICAL TRIAL SPECIALIST emailed Johnny at [facility] to cancel ref. P: dc today with OP f/u and friend to transport, son to support at home. CM team will continue to follow as needed PONCE Daly
[2025-04-07 12:40] VITALS: BP 127/72; PULSE 66; RESP 16; TEMP 36.6; O2SAT 99
--- NOTE | 2025-04-07 13:35 | PC.NURSE ---
Patient d/c teaching done at bedside w/ pt. questions and concerns were addressed. Additional teaching material was provided about low fiber/low residual diet. IV was removed. Pt to call daughter for pickle cutter.
--- NOTE | 2025-04-07 13:50 | PM.PN.1 ---
Subjective Subjective Interval history: 84-year-old female with AFib on chronic Eliquis anticoagulation, hypertension, diabetes mellitus 2 who was admitted with small-bowel obstruction now postop day 5 from lysis of adhesions Patient reports that she is feeling much better. She does have some soreness around her incision, but reports she is tolerating her diet. She is voiding without difficulty. No nausea. She is moving her bowels. She is looking forward to going home. Her son has been helping care for her who has Parkinson's disease. Exam Vital Signs (past 8 hours): - 04/07/25 08:00 04/07/25 09:52 04/07/25 09:54 Temperature Pulse Rate 84 84 Respiratory Rate Blood Pressure 154/73 H 154/73 H Pulse Oximetry 97 Oxygen Delivery Method Room Air 04/07/25 12:40 04/07/25 12:40 Temperature 97.8 F Pulse Rate 66 Respiratory Rate 16 Blood Pressure 127/72 Pulse Oximetry 99 99 Oxygen Delivery Method Room Air Oxygen Delivery Method Room Air Oxygen Flow Rate 0 Narrative Exam Narrative: GEN: Very pleasant elderly female, Alert and oriented x 3, NAD HEENT:NC, Face symmetric CHEST: Respiratory excursions symmetric, CTAB CV: Irregularly irregular, no M/R/G ABD: Soft, mildly diffusely tender/ND, BT present in all 4 quadrants, no organomegaly or masses, midline incision is clean, dry, intact, there is moderate bruising about the incision EXTR: warm, well perfused, no C/C/E SKIN: warm and dry, no rash NEURO: Alert and oriented x 3, nonfocal Objective Labs 04/05/25 04:39 04/05/25 04:39 Labs: Laboratory Results - last 24 hr 04/06/25 04/06/25 04/07/25 16:33 19:27 07:33 POC Whole Bld Glucose 141 H 171 H 126 H PFSH Medical History (Updated 04/05/25 @ 06:38 by Yung Howell MD) Atrial fibrillation Social History household members: spouse Smoking Status: Never smoker alcohol intake: current Assessment & Plan Assessment & Plan narrative: 1. Small bowel obstruction, Postop day 5 from lysis of adhesions Patient is doing well overall. She has tolerating a diet, moving her bowels. Surgery has elected to discharge her home. She notes surgeon told her she should take MiraLax and her goal is to have 2 bowel movements daily. She has had a prior bowel obstruction in the past as well. I advised she could titrate MiraLax from as little as a half cap a day to as much as 3 times daily to achieve the 2 bowel movements daily. She expresses understanding. Reviewed that if her were to fall she should contact lift assist rather than trying to help him given her 10 lb weight lifting restriction. I gave her the number for lift assist. 2. Permanent atrial fibrillation on Eliquis anticoagulation. She is presently rate controlled. She will continue her outpatient dose of carvedilol and resume her usual dose of furosemide. 3. Diabetes mellitus type 2 Blood sugars have been stable. Continue metformin. 4. Hyperlipidemia Continue usual dose of rosuvastatin 5. Hypothyroidism Continue usual dose of levothyroxine Code status Full Prophylaxis On Eliquis Disposition She is discharging home in stable condition Time-Based Coding :: [TOTAL MINUTES] spent with patient and on the chart (including review of chart, obtaining history, exam, reviewing outside data, placing orders, documenting exam and treatment plan, and counseling patient) on [DATE].
== END 2025-04-07 13:52 | disposition home or self-care (01) | DRG 335 ==
LOC: ED 18:18 → AC 19:26
PROVIDERS: Family Medicine; Internal Medicine; Student in an Organized Health Care Education/Training Program; Surgery; Admitting Provider Internal Medicine; Emergency Provider Emergency Medicine; Family Provider Family Medicine; PCP Family Medicine; Referring Provider Emergency Medicine; Visit Provider Internal Medicine
PROC: 0DN80ZZ Release Small Intestine, Open Approach (ICD-10-PCS; CPT 49000; principal; 2025-04-02 20:00)
DX: K56.50 Intestinal adhesions [bands], unspecified as to partial versus complete obstruction (principal); K55.019 Acute (reversible) ischemia of small intestine, extent unspecified; I48.21 Permanent atrial fibrillation; E11.9 Type 2 diabetes mellitus without complications; K59.00 Constipation, unspecified; I10 Essential (primary) hypertension; E89.0 Postprocedural hypothyroidism; E78.5 Hyperlipidemia, unspecified; Z87.19 Personal history of other diseases of the digestive system; Z79.01 Long term (current) use of anticoagulants; Z98.890 Other specified postprocedural states; Z79.84 Long term (current) use of oral hypoglycemic drugs; Z79.890 Hormone replacement therapy
CPT/HCPCS: 36415; 71045; 74019; 74177; 80048; 80053; 80069; 81001; 82962; 83036; 83605; 83690; 83735; 84100; 84134; 84466; 85025; 85610; 85730; 86850; 86900; 86901; 93005; 93010; 96374; 96375; 97110; 97116; 97162; 97166; 97530; 97535; 99284; A9270; J0690; J1100; J1644; J1815; J2270; J2405; J2704; J3010; J3490; J7168; Q9967

== ENCOUNTER 2025-04-16 20:48 | Emergency (ER) | payer OTHER, SELFPAY ==
[2025-04-02 19:34] VITALS: BMI 24.4
[2025-04-16 20:53] VITALS: BP 147/74; PULSE 74; O2SAT 97
[2025-04-16 21:00] VITALS: BP 147/74; PULSE 76; PULSE 80; RESP 16; TEMP 36.9; O2SAT 97; O2SAT 98; BMI 21.4
[2025-04-16 21:07] VITALS: BP 128/66; PULSE 75; RESP 20; O2SAT 97
--- NOTE | 2025-04-16 21:11 | DI.RAD.S_ITS ---
PROCEDURE: XR CHEST 1V INDICATIONS: Chest Pain TECHNIQUE: One view of the chest was acquired. COMPARISON: [facility], CT, CT ABDOMEN PELVIS W CON, 04/02/2025, 17:24. [facility], CR, XR CHEST 1V, 04/02/2025, 19:43. [facility], CR, XR CHEST 1V, 12/06/2023, 12:05. FINDINGS: Surgical changes and devices: None. Lungs and pleura: Lungs are clear. No pleural effusions or pneumothorax. Mediastinum: Stable mild cardiomegaly. Bones and chest wall: No suspicious bony lesions. Surgical clips in the right breast. IMPRESSION: No acute cardiopulmonary abnormality is seen. Dictated by: Luis Felipe Sanches M.D. on 04/16/2025 at 21:44 Approved by: Luis Felipe Sanches M.D. on 04/16/2025 at 21:45
--- NOTE | 2025-04-16 21:17 | EKG_ITS ---
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
[2025-04-16 21:25] LABS: Add Manual Diff / Slide Review NO; Hematocrit 35.6 % (36-46); Hemoglobin 12.2 g/dL (12.0-16.0); INR 1.9 (0.9-1.3); Lymphocytes Absolute Auto 1500 /uL (1100-4500); Mean Corpuscular HGB Conc 34.4 % (30-36); Mean Corpuscular Hemoglobin 30.8 PG (26-34); Mean Corpuscular Volume 89.5 fL (80-100); Platelet Count 282 X10^3/uL (150-400); Prothrombin Time 20.9 SECONDS (9.4-12.5)
[2025-04-16 21:28] LABS: PTT Partial Thromboplastin Tim 33 SECONDS (25.1-36.5)
[2025-04-16 21:30] VITALS: BP 141/72; PULSE 76; RESP 17; O2SAT 97
[2025-04-16 21:30] LABS: Alanine Aminotransferase 24 IU/L (<35); Albumin 4.2 g/dL (3.5-5.0); Albumin Globulin Ratio 1.5 (1.0-2.8); Alkaline Phosphatase 57 U/L (38-126); Blood Urea Nitrogen 38 mg/dL (7-17); Calcium 9.4 mg/dL (8.4-10.2); Carbon Dioxide 27 mmol/L (22-32); Chloride 97 mmol/L (98-107); Creatine Kinase 47 U/L (30-135); Estimated Glomerular Filt Rate 46 mL/min (>60); Globulin 2.8 g/dL (1.7-4.1); Glucose 106 mg/dL (70-99); HEMOLYSIS 15 (0-50); Lipase 154 U/L (23-300); Magnesium 1.9 mg/dL (1.6-2.3); Potassium 4.2 mmol/L (3.4-5.1); Sodium 131 mmol/L (137-145); Total Protein 7.0 g/dL (6.3-8.2)
[2025-04-16 21:41] LABS: NT-proBNP (BNP-Adult 18+) 801 pg/mL (<450); Troponin I < 0.012 ng/mL (0.01-0.034)
[2025-04-16 22:00] VITALS: BP 145/67; PULSE 79; RESP 17; O2SAT 97
[2025-04-16 22:30] VITALS: BP 135/68; PULSE 76; RESP 18; O2SAT 98
--- NOTE | 2025-04-16 23:02 | ED.GENADULT ---
HPI - General Adult General Chief complaint: Dizziness Stated complaint: abd pain Time Seen by Provider: 04/16/25 23:00 Source: patient and EMS Mode of arrival: EMS History of Present Illness HPI narrative: 84-year-old female with history of atrial fibrillation on Eliquis chronic anticoagulation, status post recent small bowel obstruction and surgery here by Dr. Howell 1-1/2 weeks ago, subsequent to the surgical single procedure she was admitted for for 5 additional days with bowel regimen, then having bowel movements, no subsequent additional procedures that admission, was discharged home, since being home she has had intermittent discomfort the last couple of days, with discomfort she feels like she might pass out. This evening she also has some left lateral chest discomfort at seems resolved without specific treatments, no known coronary artery interventions. Related Data Home Medications ?Medication ?Instructions ?Recorded ?Confirmed calcium citrate (Calcitrate) 400 mg PO DAILY ##0 06/18/17 04/02/25 estradiol 1 mg tablet (Estrace) 1 mg PO .every other ##0 06/18/17 04/02/25 losartan 50 mg tablet 50 mg PO BID ##0 06/18/17 04/02/25 omeprazole 20 mg capsule,delayed 20 mg PO EVERY OTHER DAY ##0 06/18/17 04/02/25 release pravastatin 40 mg tablet 40 mg PO QPM ##0 06/18/17 04/02/25 apixaban 5 mg tablet (Eliquis) 5 mg PO BID 01/27/25 04/02/25 carvedilol 12.5 mg tablet 12.5 mg PO BID 01/27/25 04/02/25 metformin 500 mg tablet 500 mg PO BID 01/27/25 04/02/25 potassium chloride 10 mEq 10 meq PO DAILY 01/27/25 04/02/25 tablet,extended release rosuvastatin 40 mg tablet 40 mg PO DAILY 01/27/25 04/02/25 spironolactone 25 mg tablet 25 mg PO DAILY 01/27/25 04/02/25 cholecalciferol (vitamin D3) 50 2,000 unit PO BID 04/02/25 04/02/25 mcg (2,000 unit) tablet (D3 DOTS) levothyroxine 75 mcg tablet 75 mcg PO DAILY 04/02/25 04/02/25 multivitamin (Daily Multi-Vitamin 1 tab PO DAILY 04/02/25 04/02/25 tablet) Previous Rx's ?Medication ?Instructions ?Recorded furosemide 20 mg tablet (Lasix) 20 mg PO DAILY #3 tabs 07/16/21 hydrocodone 5 mg-acetaminophen 325 1 tab PO Q4H PRN pain #10 tabs 04/07/25 mg tablet Allergies Allergy/AdvReac Type Severity Reaction Status Date / Time codeine (CODEINE) Allergy Intermediate NAUSEA Verified 04/16/25 21:12 Sulfa (Sulfonamide Allergy Intermediate broke out Verified 04/16/25 21:12 Antibiotics) (SULFA in a rash (SULFONAMIDE ANTIBIOTICS)) Patient History Medical History (Updated 04/17/25 @ 01:06 by Hoang Stewart MD) Atrial fibrillation Social History household members: spouse alcohol intake: current alcohol intake frequency: a few times a week Exam Narrative Exam Narrative: GENERAL: Well-developed patient, in mild distress. HEAD: Atraumatic. Normocephalic. EYES: Pupils equal round and reactive. Extraocular motions intact. No scleral icterus. No injection or drainage. ENT: No obvious craniofacial swelling or injury patterns, no facial droop. NECK: Trachea midline. Non tender CARDIOVASCULAR: Regular rate and rhythm without murmurs, gallops, or rubs. RESPIRATORY: Clear to auscultation. Breath sounds equal bilaterally. No wheezes, rales, or rhonchi. GASTROINTESTINAL: Well-healing midline abdominal scar, without obvious drainage or bleeding. No wound dehiscence obvious. No crepitance or significant tenderness. Bowel tones unremarkable, without rushes or tinkles. EXTREMITIES: No edema or joint tenderness. BACK: Nontender without deformity or crepitance. No flank tenderness. NEURO: AOx3. Motor functions grossly nonfocal. SKIN: No rash or erythema of visible areas, recent surgical abdominal scar noted above. Initial Vital Signs Initial Vital Signs: Vital Signs Pulse Rate 74 04/16/25 20:53 Blood Pressure 147/74 H 04/16/25 20:53 Pulse Oximetry 97 04/16/25 20:53 Course Orders Ordered: Discontinued Medications Sodium Chloride (Normal Saline 0.9%) 1,000 mls @ 1,000 mls/hr IV BOLUS ONE Stop: 04/17/25 00:10 Last Infusion: 04/17/25 01:48 Dose: Infused Documented By: Admin: 04/16/25 23:28 Dose: 1,000 mls/hr Documented By: PEDRO Vital Signs Vital signs: Vital Signs - 8 hr 04/16/25 20:53 04/16/25 20:53 04/16/25 21:00 Temperature 98.4 F Pulse Rate 74 80 Respiratory Rate 16 Blood Pressure 147/74 H 147/74 H Pulse Oximetry 97 98 Oxygen Delivery Method Room Air 04/16/25 21:00 04/16/25 21:07 04/16/25 21:07 Temperature Pulse Rate 76 75 Respiratory Rate 20 Blood Pressure 128/66 Pulse Oximetry 97 97 Oxygen Delivery Method Room Air 04/16/25 21:30 04/16/25 22:00 04/16/25 22:30 Temperature Pulse Rate 76 79 76 Respiratory Rate 17 17 18 Blood Pressure 141/72 H 145/67 H 135/68 Pulse Oximetry 97 97 98 Oxygen Delivery Method Room Air Medical Decision Making Lab Data Lab results reviewed: Yes I reviewed the patient's lab results. Lab results narrative: White blood cell count 8600, hemoglobin 12.2, platelets adequate. Glucose 106. BUN 38 with creatinine 1.17 noted. Normal serum CO2 and potassium. Sodium 131 slightly decreased. Liver functions normal. Lipase normal. Troponin negative/unmeasurable. BNP elevated. 04/16/25 21:02 04/16/25 21:02 Labs: Lab Results 04/16/25 04/17/25 Range/Units 21:02 00:20 WBC 8.6 (4.5-11.0) X10^3/uL RBC 3.97 L (4.0-5.2) X10^6/uL Hgb 12.2 (12.0-16.0) g/dL Hct 35.6 L (36-46) % MCV 89.5 (80-100) fL MCH 30.8 (26-34) PG MCHC 34.4 (30-36) % RDW 15.0 H (11.6-14.8) % Plt Count 282 (150-400) X10^3/uL Neut % (Auto) 70.2 (50-75) % Lymph % (Auto) 17.9 L (25-40) % Vance % (Auto) 8.2 (3-14) % Eos % (Auto) 3.0 (2-4) % Baso % (Auto) 0.7 (0-2) % Neut # (Auto) 6000 (1531-3677) /uL Lymph # (Auto) 1500 (6512-3328) /uL Vance # (Auto) 700 (0-900) /uL Eos # (Auto) 300 (0-450) /uL Baso # (Auto) 100 (0-100) /uL PT 20.9 H (9.4-12.5) SECONDS INR 1.9 H (0.9-1.3) APTT 33 (25.1-36.5) SECONDS Sodium 131 L (137-145) mmol/L Potassium 4.2 (3.4-5.1) mmol/L Chloride 97 L (98-107) mmol/L Carbon Dioxide 27 (22-32) mmol/L BUN 38 H (7-17) mg/dL Creatinine 1.17 H (0.52-1.04) mg/dL Estimated GFR 46 L (>60) mL/min BUN/Creatinine Ratio 32.5 H (6-22) Glucose 106 H (70-99) mg/dL Calcium 9.4 (8.4-10.2) mg/dL Magnesium 1.9 (1.6-2.3) mg/dL Total Bilirubin 0.8 (0.2-1.3) mg/dL AST 28 (14-36) IU/L ALT 24 (<35) IU/L Alkaline Phosphatase 57 (38-126) U/L Total Creatine Kinase 47 (30-135) U/L Troponin I < 0.012 < 0.012 (0.01-0.034) ng/mL NT-Pro-B Natriuret Pep 801 H (<450) pg/mL Total Protein 7.0 (6.3-8.2) g/dL Albumin 4.2 (3.5-5.0) g/dL Globulin 2.8 (1.7-4.1) g/dL Albumin/Globulin Ratio 1.5 (1.0-2.8) Lipase 154 (23-300) U/L Imaging Data Chest x-ray: Radiologist's Impression: [address] [address] XRay Report Signed Patient: Staci Patel MR#: [id number] : 1940 Acct:[id number] Age/Sex: 84 / F Date of Service: 04/16/25 Loc: ED Accession Number: [id number] Procedure: XR chest 1V Ordering Provider: Agus Thomas MD PROCEDURE: XR CHEST 1V INDICATIONS: Chest Pain TECHNIQUE: One view of the chest was acquired. COMPARISON: [facility], CT, CT ABDOMEN PELVIS W CON, 04/02/2025, 17:24. [facility], CR, XR CHEST 1V, 04/02/2025, 19:43. [facility], CR, XR CHEST 1V, 12/06/2023, 12:05. FINDINGS: Surgical changes and devices: None. Lungs and pleura: Lungs are clear. No pleural effusions or pneumothorax. Mediastinum: Stable mild cardiomegaly. Bones and chest wall: No suspicious bony lesions. Surgical clips in the right breast. IMPRESSION: No acute cardiopulmonary abnormality is seen. Dictated by: Luis Felipe Snaches M.D. on 04/16/2025 at 21:44 Approved by: Luis Felipe Sanches M.D. on 04/16/2025 at 21:45 CT angiogram chest PE protocol: Radiologist's Impression: [place] [address] CT Scan Report Signed Patient: Staci Patel MR#: [id number] : 1940 Acct:[id number] Age/Sex: 84 / F Date of Service: 04/16/25 Loc: ED Accession Number: [id number] Procedure: CT angio chest PE protocol Ordering Provider: Hoang Stewart MD PROCEDURE: CT ANGIO CHEST PE PROTOCOL INDICATIONS: L chest pain, recent SBO surgery TECHNIQUE: After the administration of intravenous contrast, 2 mm thick sections acquired from the pulmonary apices to the posterior costophrenic angles. 3-dimensional maximum intensity projection (MIP) coronal and sagittal reformats were then acquired through the thorax. For radiation dose reduction, the following was used: automated exposure control, adjustment of mA and/or kV according to patient size. COMPARISON: None. FINDINGS: Image quality: Diagnostic. Pulmonary arteries: Pulmonary arteries are normal in size, and demonstrate no intraluminal filling defects to suggest central pulmonary embolism. Lower Neck: No enlarged lymph nodes. Thyroid: Nonvisualized thyroid gland, correlate for history of thyroidectomy. Axillae: No enlarged lymph nodes. Chest Wall: Surgical clips in the right breast. Left breast 1.9 cm cyst. Bones: Unremarkable. Lungs and Pleura: No pneumothorax or pleural effusions. No consolidation. Right middle lobe with 3 mm pulmonary nodule (5/235). Anterior right lower lobe 0.5 cm pulmonary nodule (5/233). Heart: Mild global cardiomegaly with biatrial enlargement. Moderate triple-vessel coronary artery calcifications. Thoracic Vessels: No aortic aneurysm. Mediastinum and Amanda: No enlarged lymph nodes. Esophagus: No wall thickening. Layering debris within the tubular thoracic esophagus, which can be seen with dysphagia. No hiatal hernia. Upper Abdomen: Visualized upper abdomen solid organs and bowel loops appear normal. IMPRESSION: 1. No pulmonary embolus. 2. No acute cardiopulmonary process. 3. Left breast cyst. Recommend correlation with dedicated breast imaging/mammography if not performed recently. 4. Right middle lobe and right lower lobe small pulmonary nodules can be followed with a optional low-dose chest CT in 12 months in a high risk patient / smoker but do not require follow-up in a low risk/nonsmoker patient per Fleischner criteria. 5. Moderate to severe coronary artery calcifications. Correlate with risk factors, symptoms, and consider cardiology referral versus lifestyle modifications. Dictated by: Luis Felipe Sanches M.D. on 04/16/2025 at 23:43 Approved by: Luis Felipe Sanches M.D. on 04/16/2025 at 23:49 CT scan - abdomen/pelvis: Radiologist's Impression: [address] [address] [address] Scan Report Signed Patient: Staci Patel MR#: [id number] : 1940 Acct:[id number] Age/Sex: 84 / F Date of Service: 04/16/25 Loc: ED Accession Number: [id number] Procedure: CT abdomen pelvis w con Ordering Provider: Hoang Stewart MD PROCEDURE: CT ABDOMEN PELVIS W CON INDICATIONS: abd pain, SBO 1.5 wks ago TECHNIQUE: After the administration of intravenous contrast, axial sections acquired from the lung bases to the pubic symphysis. Coronal and sagittal reformats were performed. For radiation dose reduction, the following was used: automated exposure control, adjustment of mA and/or kV according to patient size. COMPARISON: [facility], CT, CT ABDOMEN PELVIS W CON, 04/02/2025, 17:24. FINDINGS: Image quality: Diagnostic. The exam is performed in late arterial and early portal venous phase. Lower Chest: Cardiomegaly with biatrial enlargement. ABDOMEN: Liver: No solid mass. Gallbladder: No radiopaque gallstones or wall thickening. Biliary ducts: No biliary dilation. Pancreas: No ductal dilation. Spleen: Size is within normal limits. Adrenal Glands: No adrenal nodules. Kidneys and Ureters: No hydronephrosis. No solid mass. No complex renal cystic lesion which requires follow up. Stomach and Bowel: The bowel is normal in caliber without focal transition point. Sigmoid colon diverticulosis without diverticulitis. Nonvisualized appendix. No pericecal inflammation. Peritoneum: No abnormal intraperitoneal fluid. No free air. Ventral Wall: Changes of recent laparotomy with a ovoid 2.4 x 1.3 x 1.1 cm fluid collection along the inferior midline surgical incision (4; 08/31). Abdominal Nodes: No retroperitoneal or mesenteric adenopathy by size criteria. Vessels: Aorta and inferior vena cava are normal in size. Extensive vascular calcifications without clinically significant stenosis. PELVIS: Pelvic Organs: Possible right Bartholin gland cyst. Bladder: No bladder wall thickening, accounting for underdistention. Pelvic Nodes: No enlarged lymph nodes. Miscellaneous: No inguinal hernias are seen. Bones: No aggressive osseous abnormality. Multilevel degenerative changes in the lumbar spine. IMPRESSION: 1. Changes of recent laparotomy with a 2.4 cm peripherally enhancing fluid collection along the deep margin of the inferior laparotomy incision. This may represent a postoperative seroma versus abscess. 2. Possible right Bartholin's gland cyst. Dictated by: Luis Felipe Sanches M.D. on 04/16/2025 at 23:38 Approved by: Luis Felipe Sanches M.D. on 04/16/2025 at 23:43 ECG Data Attestation: I personally reviewed and interpreted this ECG as follows: Interpretation: 2116, atrial fibrillation with ventricular response rate 77, no obvious ST segment elevation or depression changes. QRS 82, QTC 450. MDM Narrative Medical decision making narrative: 84-year-old female with recent bowel surgery for small bowel obstruction, subsequent additional days during hospitalization for bowel regimen, discharged home, now having 2 days duration of intermittent right sided abdominal discomfort, waves increasing, feels like she might pass out when they occur. She did not actually pass out. She also has some discomfort left lateral chest area. No leg pain or swelling symptoms. Labs pending. EKG shows atrial fibrillation, known, ventricular response rate 77, no obvious ischemic changes. Lab data: White blood cell count 8600, hemoglobin 12.2, platelets adequate. Glucose 106. BUN 38 with creatinine 1.17 noted. Normal serum CO2 and potassium. Sodium 131 slightly decreased. Liver functions normal. Lipase normal. Troponin negative/unmeasurable. BNP elevated. Renal function adequate, CT abdomen and pelvis with IV contrast, CT angio chest PE protocol. Patient declines pain medication when offered. Keep NPO. CTA chest PE protocol. IMPRESSION: 1. No pulmonary embolus.2. No acute cardiopulmonary process.3. Left breast cyst. Recommend correlation with dedicated breast imaging/mammography if not performed recently.4. Right middle lobe and right lower lobe small pulmonary nodules can be followed with a optional low-dose chest CT in 12 months in a high risk patient / smoker but do not require follow-up in a low risk/nonsmoker patient per Fleischner criteria.5. Moderate to severe coronary artery calcifications. Correlate with risk factors, symptoms, and consider cardiology referral versus lifestyle modifications. See radiology report. CT abdomen and pelvis with IV contrast. IMPRESSION: 1. Changes of recent laparotomy with a 2.4 cm peripherally enhancing fluid collection along the deep margin of the inferior laparotomy incision. This may represent a postoperative seroma versus abscess. 2. Possible right Bartholin's gland cyst. See radiology report. Repeat interval troponin also negative/unmeasurable. Copy of reports given to patient. No fever, no white blood cell count elevation, clinically seems more consistent with seroma then abscess. We will hold antibiotics for now. Copies of CT/CTA reports given to patient with mentioned of incidental findings pulmonary nodule and coronary calcifications and breast cyst, further evaluation as an outpatient for these incidental findings.. Discharged home with family. Advised for now to increase her dose of MiraLax from once daily to twice daily, and to continue using milk of magnesia. Encouraged to contact the office of her surgeon Dr. Howell in clinic tomorrow. Return precautions discussed. Discharge Plan Departure Patient Disposition: Home Clinical Impression: Abdominal pain, Dizziness, Coronary artery calcification, Lung nodules, History of small bowel obstruction, Seroma after procedure Instructions: DI for Abdominal Pain-Adult Activity Restrictions/Additional Instructions: Recent surgical intervention for small bowel obstruction, subsequent postoperative days while in hospital having additional bowel regimen with MiraLax and milk of magnesia. He seemed to be feeling better, then having increasing discomfort with associated dizziness today. You also had left lateral chest discomfort. EKG and serial blood tests not suggestive of heart attack at this time. CT angiogram of the chest showed no blood clots to the lungs, no acute cardiopulmonary findings, but did show calcifications of the coronary artery vessels. Lung nodules were additionally incidentally noted on the CT scan, that can be followed up as an outpatient. CT abdomen and pelvis showed postoperative changes, a small 2.5 cm seroma fluid collection, that does not require surgical intervention at this time, no recurrence of bowel obstruction or emergent surgical findings at this time. Blood pressure not 2 elevated or too low while here. It might be possible for you have had some discomfort related to relatively firm stool, consider MiraLax twice daily increased regimen again for the next couple of days, with use of your milk of magnesia as needed. Call the office of your surgeon tomorrow to see if he has any further recommendations. You did have coronary artery calcifications, this can be an association with narrowed internal vessels, consider further cardiac evaluation as an outpatient with your rattan worker, that might involved cardiac stress testing, might involve echocardiogram evaluations, or other testing. History of atrial fibrillation known, no heart rate that was too fast or too slow to require any interventions. Lung nodules incidentally noted, further follow up as an outpatient. Call the office of your surgeon tomorrow as above. Follow up with your cardiac and blood pressure in atrial fibrillation issues with your regular doctor in with your rattan worker. Return earlier to this/nearest emergency department for any change worsening symptoms or any concerns prior. Prescriptions: No Action losartan 50 MG tablet 50 mg PO BID Qty: 0 pravastatin 40 MG tablet 40 mg PO QPM Qty: 0 omeprazole 20 MG capsule,delayed release(DR/EC) 20 mg PO EVERY OTHER DAY Qty: 0 calcium citrate [Calcitrate] 200 mg (950 mg) tablet 400 mg PO DAILY Qty: 0 estradiol [Estrace] 1 mg tablet 1 mg PO .every other Qty: 0 Patient Comments: pt take once every 3 days furosemide [Lasix] 20 mg tablet 20 mg PO DAILY Qty: 3 0RF metformin 500 mg tablet 500 mg PO BID carvedilol 12.5 mg tablet 12.5 mg PO BID potassium chloride 10 mEq tablet extended release 10 meq PO DAILY spironolactone 25 mg tablet 25 mg PO DAILY rosuvastatin 40 mg tablet 40 mg PO DAILY Eliquis 5 mg tablet 5 mg PO BID multivitamin [Daily Multi-Vitamin] Tablet 1 tab PO DAILY cholecalciferol (vitamin D3) [D3 DOTS] 50 mcg (2,000 unit) tablet 2,000 unit PO BID levothyroxine 75 mcg tablet 75 mcg PO DAILY hydrocodone-acetaminophen 5-325 mg tablet 1 tab PO Q4H PRN (Reason: pain) Qty: 10 0RF Referrals: Robert Mcfarlane MD [Primary Care Provider, Family Practice] Stand Alone Forms: Patient Portal/API
--- NOTE | 2025-04-16 23:10 | DI.CT.S_ITS ---
PROCEDURE: CT ANGIO CHEST PE PROTOCOL INDICATIONS: L chest pain, recent SBO surgery TECHNIQUE: After the administration of intravenous contrast, 2 mm thick sections acquired from the pulmonary apices to the posterior costophrenic angles. 3-dimensional maximum intensity projection (MIP) coronal and sagittal reformats were then acquired through the thorax. For radiation dose reduction, the following was used: automated exposure control, adjustment of mA and/or kV according to patient size. COMPARISON: None. FINDINGS: Image quality: Diagnostic. Pulmonary arteries: Pulmonary arteries are normal in size, and demonstrate no intraluminal filling defects to suggest central pulmonary embolism. Lower Neck: No enlarged lymph nodes. Thyroid: Nonvisualized thyroid gland, correlate for history of thyroidectomy. Axillae: No enlarged lymph nodes. Chest Wall: Surgical clips in the right breast. Left breast 1.9 cm cyst. Bones: Unremarkable. Lungs and Pleura: No pneumothorax or pleural effusions. No consolidation. Right middle lobe with 3 mm pulmonary nodule (5/235). Anterior right lower lobe 0.5 cm pulmonary nodule (5/233). Heart: Mild global cardiomegaly with biatrial enlargement. Moderate triple- vessel coronary artery calcifications. Thoracic Vessels: No aortic aneurysm. Mediastinum and Amanda: No enlarged lymph nodes. Esophagus: No wall thickening. Layering debris within the tubular thoracic esophagus, which can be seen with dysphagia. No hiatal hernia. Upper Abdomen: Visualized upper abdomen solid organs and bowel loops appear normal. IMPRESSION: 1. No pulmonary embolus. 2. No acute cardiopulmonary process. 3. Left breast cyst. Recommend correlation with dedicated breast imaging/mammography if not performed recently. 4. Right middle lobe and right lower lobe small pulmonary nodules can be followed with a optional low-dose chest CT in 12 months in a high risk patient / smoker but do not require follow-up in a low risk/nonsmoker patient per Fleischner criteria. 5. Moderate to severe coronary artery calcifications. Correlate with risk factors, symptoms, and consider cardiology referral versus lifestyle modifications. Dictated by: Luis Felipe Sanches M.D. on 04/16/2025 at 23:43 Approved by: Luis Felipe Sanches M.D. on 04/16/2025 at 23:49
[2025-04-16] MEDS: SODIUM CHLORIDE 0.9% 1,000 ML 1000 ML IV (23:28)
[2025-04-17 01:02] LABS: Troponin I < 0.012 ng/mL (0.01-0.034)
== END 2025-04-17 01:43 | disposition home or self-care (01) ==
PROVIDERS: Emergency Medicine; Emergency Provider Emergency Medicine; Family Provider Family Medicine; PCP Family Medicine
DX: R10.9 Unspecified abdominal pain (principal); R42 Dizziness and giddiness; I25.10 Atherosclerotic heart disease of native coronary artery without angina pectoris; R07.9 Chest pain, unspecified; L76.34 Postprocedural seroma of skin and subcutaneous tissue following other procedure; R91.8 Other nonspecific abnormal finding of lung field; Z87.19 Personal history of other diseases of the digestive system; Z79.01 Long term (current) use of anticoagulants
CPT/HCPCS: 36415; 71045; 71275; 74177; 80053; 82550; 83690; 83735; 83880; 84484; 85025; 85610; 85730; 93005; 96360; 96361; 99284; J7030; Q9967